=== PATIENT | male | born 1970 | race Caucasian/White ===

== ENCOUNTER 2017-03-11 23:28 | Inpatient (IN) | payer OTHER ==
[2017-03-11 23:29] VITALS: BMI 25.8
[2017-03-11 23:41] VITALS: RESP 20
--- NOTE | 2017-03-11 23:44 | C.PDOC ---
History Of Present Illness pt presents with some chest discomfort over the last week, as well as scrotal pain, worsening over the last few days. Noticed some foul odor and discharge in the genital. No f/c/n/v area Time Seen by Provider: 03/11/17 23:43 Chief Complaint (Nursing): Chest Pain History Per: Patient History/Exam Limitations: no limitations Onset/Duration Of Symptoms: Days (7) Current Symptoms Are (Timing): Still Present Context: Other Severity: Moderate Pain Scale Rating Of: 4 Quality: Dull, Aching Associated Symptoms: denies: Nausea Modifying Factors: None Exacerbating Factors: None Alleviating Factors: None Recent travel outside of the [place]: No Additional History Per: Patient Past Medical History Reviewed: Historical Data, Nursing Documentation, Vital Signs Vital Signs: Last Vital Signs Temp 98.3 F 03/11/17 23:37 Pulse 90 03/11/17 23:37 Resp 20 03/11/17 23:37 BP 125/71 03/11/17 23:37 Pulse Ox 100 03/11/17 23:55 - Medical History PMH: Anxiety, Asthma, CAD, COPD, Depression, HTN, Hypercholesterolemia Surgical History: Coronary Stent (X2), Endoscopy (IN [place]) - [facility] Procedures CORONAR ARTERIOGR-2 CATH (05/25/14) INSERTION OF ONE VASCULAR STENT (10/27/13) INSRT OF DRUG-ELUTING CORON ARTERY STENTS(S) (10/27/13) LEFT HEART CARDIAC CATH (05/25/14) LT HEART ANGIOCARDIOGRAM (05/25/14) MEASURE OF CARDIAC SAMPL & PRESSURE, L HEART, PERC APPROACH (07/18/15) PERCUTANEOUS TRANSLUMINAL CORONARY ANGIOPLASTY [PTCA] (10/27/13) PLAIN RADIOGRAPHY OF LEFT HEART USING OTHER CONTRAST (07/18/15) PROCEDURE ON SINGLE VESSEL (10/27/13) Family History: States: No Known Family Hx - Social History Hx Tobacco Use: Yes Hx Alcohol Use: No Hx Substance Use: No - Immunization History Hx Tetanus Toxoid Vaccination: No Hx Influenza Vaccination: No Hx Pneumococcal Vaccination: No Review Of Systems Constitutional: Negative for: Fever, Chills Eyes: Negative for: Redness ENT: Negative for: Throat Pain Cardiovascular: Positive for: Chest Pain. Negative for: Palpitations Respiratory: Negative for: Shortness of Breath Gastrointestinal: Negative for: Nausea, Vomiting, Abdominal Pain Genitourinary: Positive for: Scrotal Pain (large draining abscess right scrotal wall) Musculoskeletal: Negative for: Back Pain Skin: Negative for: Rash Neurological: Negative for: Weakness Psych: Negative for: Anxiety Physical Exam - Physical Exam Appears: Non-toxic Skin: Warm, Dry, Other (scrotal abscess) Head: Normacephalic Eye(s): bilateral: Normal Inspection Oral Mucosa: Moist Neck: Trachea Midline, Supple Chest: Symmetrical Cardiovascular: Rhythm Regular Respiratory: No Rales, No Rhonchi, No Wheezing Gastrointestinal/Abdominal: Soft, No Tenderness, No Distention Male Genital: No Testicular Tenderness, No Testicular Swelling, Scrotal Swelling (large draining abscess r lat aspect of scrotum) Extremity: No Tenderness Extremity: Bilateral: Atraumatic, Normal Color And Temperature Pulses: Left Dorsalis Pedis: Normal, Right Dorsalis Pedis: Normal Neurological/Psych: Oriented x3, Normal Speech, Normal Cognition Gait: Steady ED Course And Treatment - Laboratory Results Result Diagrams: 03/11/17 23:50 ECG: Interpreted By Me, Viewed By Me ECG Rhythm: Sinus Rhythm (79), Nonspecific Changes O2 Sat by Pulse Oximetry: 100 Pulse Ox Interpretation: Normal Disposition Discussed With Dr.: Sheryl Browne Comment: accepted the pt on her service and took over the care at 12:35 AM Doctor Will See Patient In The: Hospital Counseled Patient/Family Regarding: Studies Performed, Diagnosis - Disposition Disposition: HOSPITALIZED Disposition Time: 00:35 Condition: FAIR - POA Present On Arrival: Poor Glycemic Control - Clinical Impression Clinical Impression: Chest pain, Scrotal wall abscess, Cellulitis, scrotum Decision To Admit - Pt Status Changed To: Hospital Disposition Of: Inpatient - Admit Certification Admit to Inpatient:: After my assessment, the patient will require hospitalization for at least two midnights. This is because of the severity of symptoms shown, intensity of services needed, and/or the medical risk in this patient being treated as an outpatient. - InPatient: Physician Admission Certification: I certify that this patient requires 2 or more midnights of care for the following reason:: After my assessment, the patient will require hospitalization for at least two midnights. This is because of the severity of symptoms shown, intensity of services needed, and/or the medical risk in this patient being treated as an outpatient. - . Bed Request Type: Telemetry Admitting Physician: Sheryl Browne Patient Diagnosis: Chest pain, Scrotal wall abscess, Cellulitis, scrotum
[2017-03-11] MEDS ORDERED: Aspirin 325 mg EC Tablets PO STA (23:45)
[2017-03-11] MEDS ORDERED: Clindamycin 300 MG in Sodium Chloride 0.9% 50 ML IVPB STA (23:50)
[2017-03-11] MEDS ORDERED: Vancomycin 1 GM 1 GM/250 ML BAG IVPB STA (23:53)
[2017-03-11 23:54] LABS: BASO # 0.1 K/uL (0.0-0.2); BASO % 1.1 % (0.0-2.0); EOS # 0.1 K/uL (0.0-0.7); EOS % 1.4 % (0.0-4.0); HEMATOCRIT 35.6 % (35.0-51.0); LYMPH # 1.1 K/uL (1.0-4.3); LYMPH % 13.4 % (20.0-40.0); MEAN CELL VOLUME 88.5 fL (80.0-94.0); MEAN CORPUSCULAR HEMOGLOBIN 30.1 pg (27.0-31.0); MEAN PLATELET VOLUME 9.3 fL (7.2-11.7); MONO % 12.1 % (0.0-10.0); RED CELL DISTRIBUTION WIDTH 13.3 % (11.5-14.5); WHITE BLOOD COUNT 8.5 K/uL (4.8-10.8)
[2017-03-12] MEDS ORDERED: Vancomycin 1 GM 1 GM/250 ML BAG IVPB ONE (00:05)
[2017-03-12 00:06] LABS: VENOUS BLOOD GAS BASE EXCESS 1.3 mmol/L (0.0-2.0); VENOUS BLOOD GAS PCO2 40 mmHg (40-60); VENOUS BLOOD PH 7.42 (7.32-7.43)
[2017-03-12 00:07] LABS: INR 1.2
[2017-03-12 00:44] LABS: CHLORIDE 102 mmol/L (98-107)
[2017-03-12 00:45] LABS: POTASSIUM 3.9 mmol/L (3.6-5.2); SODIUM 141 mmol/L (132-148)
[2017-03-12 00:47] LABS: AST/SGOT 28 U/L (17-59); BILIRUBIN,TOTAL 0.7 mg/dL (0.2-1.3); CARBON DIOXIDE 25 mmol/L (22-30); GFR AFRICAN-AMERICAN > 60
[2017-03-12 00:48] LABS: ALB/GLOB RATIO 1.2 (1.0-2.1); ALKALINE PHOSPHATASE 33 U/L (38-126); ALT/SGPT 19 U/L (21-72); BLOOD UREA NITROGEN 14 mg/dL (9-20); CALCIUM 9.1 mg/dl (8.6-10.4); GLUCOSE,RANDOM 135 mg/dL (75-110); TOTAL PROTEIN 7.2 g/dL (6.3-8.3)
[2017-03-12] MEDS ORDERED: Morphine 4 MG/ML VIAL ONE (01:43)
[2017-03-12 05:47] LABS: INR 1.2
[2017-03-12] MEDS: Albuterol 0.042% Inhal Sol (1.25 mg/3 mL) UD IH SCH ×4 (07:22→19:51)
[2017-03-12 08:12] LABS: URINE COLOR YELLOW (YELLOW)
[2017-03-12 08:13] LABS: RBC URINE < 1 /hpf (0-3); URINE BILIRUBIN NEGATIVE (NEGATIVE); URINE BLOOD NEGATIVE (NEGATIVE); URINE GLUCOSE (UA) Normal (Normal); URINE KETONE NEGATIVE (NEGATIVE); URINE LEUKOCYTE ESTERASE NEGATIVE Leu/uL (Negative); URINE PROTEIN NEGATIVE (NEGATIVE); URINE UROBILINOGEN Normal mg/dL (0.2-1.0)
[2017-03-12 08:14] LABS: WBC URINE < 1 /hpf (0-5)
--- NOTE | 2017-03-12 09:09 | RAD ---
PROCEDURE: CHEST RADIOGRAPH, 1 VIEW HISTORY: Chest pain COMPARISON: 05/20/2016. FINDINGS: LUNGS: The lungs are well inflated and clear. PLEURA: No pneumothorax or pleural fluid seen. CARDIOVASCULAR: Normal. OSSEOUS STRUCTURES: No significant abnormalities. VISUALIZED UPPER ABDOMEN: Normal. OTHER FINDINGS: None. IMPRESSION: No active pulmonary disease.
[2017-03-12] MEDS: Pantoprazole 40 mg EC Tab PO SCH (09:43)
[2017-03-12] MEDS: Piperacillin/Tazobact 3.375 GM in Sodium Chloride 100 ML IVPB SCH ×2 (09:45→17:13)
[2017-03-12] MEDS: Bacitracin Ointment 30 GM TUBE TOP SCH ×2 (09:48→17:18)
[2017-03-12] MEDS ORDERED: FLUTICASONE PROPIONATE 0.22 MG IH SCH ×2 (10:00)
[2017-03-12] MEDS ORDERED: Ergocalciferol 50,000 Intl Units Cap PO SCH ×2 (10:00→18:00)
[2017-03-12] MEDS: Ranolazine 500 mg Extended Release Tablets PO SCH ×2 (11:29→17:11)
--- NOTE | 2017-03-12 17:33 | CP.PCM.CON ---
History of Present Illness - History of Present Illness History of Present Illness: I was asked to see patient by Dr. Browne. Patient is a 46 year old male with a history of HTN, CAD with previous stent placement hypercholesterolemia who presents with selling in his scrotum and abscess. The patient describes progressive discomfort and swelling. The patient developed subjective fever. He denies chest pain Review of Systems - Constitutional Constitutional: absent: As Per HPI, Anorexia, Chills, Daytime Sleepiness, Excessive Sweating, Fatigue, Fever, Frequent Falls, Headache, Increased Appetite , Lethargy, Malaise, Night Sweats, Snoring, Sleep Apnea, Weight Gain, Weight Loss, Weakness, Other - EENT Ears: absent: As Per HPI, Decreased Hearing, Ear Discharge, Ear Pain, Tinnitus, Abnormal Hearing, Disequilibrium, Dizziness, Other Nose/Mouth/Throat: absent: As Per HPI, Epistaxis, Nasal Congestion, Nasal Discharge, Nasal Obstruction, Nasal Trauma, Nose Pain, Post Nasal Drip, Sinus Pain, Sinus Pressure, Bleeding Gums, Change in Voice, Dental Pain, Dry Mouth, Dysphagia, Halitosis, Hoarsness, Lip Swelling, Mouth Lesions, Mouth Pain, Odynophagia, Sore Throat, Throat Swelling, Tongue Swelling, Facial Pain, Neck Pain, Neck Mass, Other - Cardiovascular Cardiovascular: absent: As Per HPI, Acrocyanosis, Chest Pain, Chest Pain at Rest , Chest Pain with Activity, Claudication, Diaphoresis, Dyspnea, Dyspnea on Exertion, Edema, Irregular Heart Rhythm, Pain Radiating to Arm/Neck/Jaw, Leg Edema, Leg Ulcers, Lightheadedness, Orthopnea, Palpitations, Paroxysmal Nocturnal Dyspnea, Pedal Edema, Radiating Pain, Rapid Heart Rate, Slow Heart Rate, Syncope, Other - Respiratory Respiratory: absent: As Per HPI, Cough, Dyspnea, Hemoptysis, Dyspnea on Exertion , Wheezing, Snoring, Stridor, Pain on Inspiration, Chest Congestion, Excessive Mucous Production, Change in Mucous Color, Pain with Coughing, Other - Gastrointestinal Gastrointestinal: absent: As Per HPI, Abdominal Pain, Belching, Bloating, Change in Bowel Habits, Change in Stool Character, Coffee Ground Emesis, Constipation, Cramping, Diarrhea, Dyspepsia, Dysphagia, Early Satiety, Excessive Flatus, Fecal Incontinence, Heartburn, Hematemesis, Hematochezia, Loose Stools, Melena, Nausea, Odynophagia, Temesmus, Vomiting, Other - Genitourinary Genitourinary: absent: As Per HPI, Change in Urinary Stream, Difficulty Urinating, Dysuria, Flank Pain, Hematuria, Pyuria, Nocturia, Urinary Incontinence, Urinary Frequency, Urinary Hesitance, Urinary Urgency, Voiding Freq/Small Amts, Freq UTI, Hx Renal/Bladder Calculi, Hx /Renal Surgery, Bladder Distension, Other - Musculoskeletal Musculoskeletal: absent: As Per HPI, Abnormal Gait, Arthralgias, Atrophy, Back Pain, Deformity, Joint Swelling, Limited Range of Motion, Loss of Height, Muscle Cramps, Muscle Weakness, Myalgias, Neck Pain, Numbness, Radiating Pain into Limb, Stiffness, Tingling, Other - Integumentary Integumentary: absent: As Per HPI, Acne, Alopecia, Bleeding Lesions, Change in Hair, Change in Nails, Change in Pigmentation, Changing Lesions, Dry Skin, Erythema, Furuncle, Hirsutism, Lesions, New Lesions, Non-Healing Lesions, Photosensitivity, Pruritus, Rash, Skin Pain, Skin Ulcer, Sores, Striae, Swelling , Unusual Bruising, Wounds, Jaundice, Other - Neurological Neurological: absent: As Per HPI, Abnormal Gait, Abnormal Hearing, Abnormal Movements, Abnormal Speech, Behavioral Changes, Burning Sensations, Confusion, Convulsions, Disequilibrium, Dizziness, Numbness, Focal Weakness, Frequent Falls , Headaches, Lack of Coordination, Loss of Vision, Memory Loss, Paresthesias, Radicular Pain, Restless Legs, Sensory Deficit, Syncope, Tingling, Tremor, Vertigo, Weakness, Other Visual Disturbances, Other - Psychiatric Psychiatric: absent: As Per HPI, Abnormal Sleep Pattern, Anhedonia, Anxiety, Auditory Hallucinations, Behavioral Changes, Change in Appetite, Change in Libido, Confusion, Depression, Difficulty Concentrating, Hallucinations, Homicidal Ideation, Hopelessness, Irritability, Memory Loss, Mood Swings, Panic Attacks, Paranoia, Suicidal Ideation, Visual Hallucinations, Tactile Hallucinations, Other - Endocrine Endocrine: absent: As Per HPI, Change in Body Appearance, Change in Libido, Cold Intolorance, Deepening of Voice, Excessive Sweating, Fatigue, Flushing, Heat Intolorance, Increase in Ring/Shoe/Hat Size, Palpitations, Polydipsia, Polyphagia, Polyuria, Other - Hematologic/Lymphatic Hematologic: absent: As Per HPI, Easy Bleeding, Easy Bruising, Lymphadenopathy, Other Past Patient History - Past Medical History & Family History Past Medical History?: Yes - Past Social History Smoking Status: Light Smoker < 10 Cigarettes Daily - CARDIAC Hx Congestive Heart Failure: Yes Hx Heart Attack: Yes Hx Hypercholesterolemia: Yes Hx Hypertension: Yes Other/Comment: patient has two stents - PULMONARY Hx Asthma: Yes Hx Chronic Obstructive Pulmonary Disease (COPD): Yes Other/Comment: uses oxygen 2-3 liters - NEUROLOGICAL Hx Neurological Disorder: No - HEENT Hx HEENT Problems: Yes Other/Comment: wears glasses - RENAL Hx Chronic Kidney Disease: No - ENDOCRINE/METABOLIC Hx Endocrine Disorders: No - HEMATOLOGICAL/ONCOLOGICAL Hx Blood Disorders: No - INTEGUMENTARY Hx Dermatological Problems: Yes Other/Comment: scrotal abscesss - MUSCULOSKELETAL/RHEUMATOLOGICAL Hx Falls: No Other/Comment: left leg weakness - GASTROINTESTINAL Hx Gastrointestinal Disorders: Yes Hx Gastroesophageal Reflux: Yes - GENITOURINARY/GYNECOLOGICAL Hx Genitourinary Disorders: No - PSYCHIATRIC Hx Psychophysiologic Disorder: No Hx Substance Use: No - SURGICAL HISTORY Hx Coronary Stent: Yes (X2) - ANESTHESIA Hx Anesthesia: Yes Hx Anesthesia Reactions: No Hx Malignant Hyperthermia: No Meds Home Medications: Home Medication List Medication Instructions Recorded Confirmed Type Amoxicillin/Clavulanate [Augmentin 1 tab PO BID #14 tab 03/13/17 Rx 875 MG-125 MG] Allergies/Adverse Reactions: Allergies Allergy/AdvReac Type Severity Reaction Status Date / Time No Known Allergies Allergy Verified 09/23/16 09:56 - Medications Medications: Current Medications Albuterol Sulfate (Albuterol 0.042% Inhal Neisha (1.25mg/3ml) Ud) 1.25 mg IH RQID [facility] Last Admin: 03/12/17 13:34 Dose: 1.25 mg Bacitracin (Bacitracin) 0 gm TOP BID [facility] Last Admin: 03/12/17 17:18 Dose: 1 gm Ergocalciferol (Drisdol 50,000 Intl Units Cap) 1 cap PO QWK@1800 [facility] Last Admin: 03/12/17 17:13 Dose: 1 cap Fenofibrate (Tricor) 145 mg PO HS [facility] Gabapentin (Neurontin) 600 mg PO HS [facility] Heparin Sodium (Porcine) (Heparin) 5,000 units SC Q12 [facility] Last Admin: 03/12/17 09:46 Dose: 5,000 units Piperacillin Sod/Tazobactam (Sod 3.375 gm/ Sodium Chloride) 100 mls @ 200 mls/ hr IVPB Q8H [facility] Last Admin: 03/12/17 17:13 Dose: 200 mls/hr Isosorbide Mononitrate (Imdur) 30 mg PO DAILY [facility] Last Admin: 03/12/17 09:44 Dose: 30 mg Metoprolol Tartrate (Lopressor) 25 mg PO BID [facility] Last Admin: 03/12/17 17:16 Dose: Not Given Montelukast Sodium (Singulair) 10 mg PO [facility] Nicotine (Nicoderm Cq) 1 patch TD DAILY [facility] Last Admin: 03/12/17 16:50 Dose: 1 patch Pantoprazole Sodium (Protonix Ec Tab) 40 mg PO DAILY [facility] Last Admin: 03/12/17 09:43 Dose: 40 mg Ranolazine (Ranexa) 1,000 mg PO BID [facility] Last Admin: 03/12/17 17:11 Dose: 1,000 mg Rosuvastatin Calcium (Crestor) 5 mg PO [facility] Fluticasone/Salmeterol (Advair Diskus 500/50) 1 puff INH RQ12 [facility] Physical Exam - Constitutional Appears: Non-toxic - Head Exam Head Exam: NORMAL INSPECTION - Eye Exam Eye Exam: Normal appearance - ENT Exam ENT Exam: Mucous Membranes Moist - Neck Exam Neck exam: Positive for: Full Rom - Respiratory Exam Respiratory Exam: NORMAL BREATHING PATTERN - Cardiovascular Exam Cardiovascular Exam: REGULAR RHYTHM - GI/Abdominal Exam GI & Abdominal Exam: Normal Bowel Sounds - Rectal Exam Rectal Exam: Deferred - Exam Exam: Scrotal Swelling, Testicular Tenderness - Extremities Exam Extremities exam: Positive for: normal inspection - Back Exam Back exam: NORMAL INSPECTION - Neurological Exam Neurological exam: Alert, Oriented x3 - Psychiatric Exam Psychiatric exam: Normal Affect - Skin Skin Exam: Normal Color Results - Vital Signs Recent Vital Signs: Last Vital Signs Temp 98.0 F 03/12/17 15:00 Pulse 68 03/12/17 15:00 Resp 20 03/12/17 15:00 BP 102/64 03/12/17 17:16 Pulse Ox 97 03/12/17 15:00 - Labs Result Diagrams: 03/11/17 23:50 03/11/17 23:50 Labs: Laboratory Results - last 24 hr 03/12/17 03/12/17 05:16 05:16 PT 14.0 H INR 1.2 APTT 31 Total Creatine Kinase 73 CK-MB (Mass) < 0.22 Troponin I, Quant < 0.0120 NT-Pro-B Natriuret Pep 128 - EKG Data EKG Interpreted by: Myself EKG shows normal: Sinus rhythm Assessment & Plan (1) CAD (coronary artery disease) Assessment and Plan: no current angina. continue current medications. Status: Acute (2) Scrotal wall abscess Assessment and Plan: continue antibiotic therapy Status: Acute (3) HTN (hypertension) Assessment and Plan: blood pressure is controlled Status: Acute (4) Hypercholesteremia Assessment and Plan: statin therapy Status: Acute
--- NOTE | 2017-03-12 18:21 | CP.PCM.HP ---
History of Present Illness - History of Present Illness History of Present Illness: pt admited for chest pain ocasiolay and abcess scrotal painful Present on Admission - Present on Admission Any Indicators Present on Admission: No Review of Systems - Review of Systems Systems not reviewed;Unavailable: Acuity of Condition - Constitutional Constitutional: Fatigue, Headache - EENT Eyes: As Per HPI Ears: As Per HPI Nose/Mouth/Throat: As Per HPI - Cardiovascular Cardiovascular: Chest Pain - Respiratory Respiratory: Dyspnea on Exertion - Gastrointestinal Gastrointestinal: As Per HPI - Genitourinary Genitourinary: As Per HPI - Reproductive: Male Reproductive:Male: As Per HPI - Musculoskeletal Musculoskeletal: Myalgias, Radiating Pain into Limb - Integumentary Integumentary: As Per HPI - Psychiatric Psychiatric: As Per HPI - Endocrine Endocrine: As Per HPI - Hematologic/Lymphatic Hematologic: As Per HPI Past Patient History - Past Medical History & Family History Past Medical History?: Yes - Past Social History Smoking Status: Light Smoker < 10 Cigarettes Daily - CARDIAC Hx Congestive Heart Failure: Yes Hx Heart Attack: Yes Hx Hypercholesterolemia: Yes Hx Hypertension: Yes Other/Comment: patient has two stents - PULMONARY Hx Asthma: Yes Hx Chronic Obstructive Pulmonary Disease (COPD): Yes Other/Comment: uses oxygen 2-3 liters - NEUROLOGICAL Hx Neurological Disorder: No - HEENT Hx HEENT Problems: Yes Other/Comment: wears glasses - RENAL Hx Chronic Kidney Disease: No - ENDOCRINE/METABOLIC Hx Endocrine Disorders: No - HEMATOLOGICAL/ONCOLOGICAL Hx Blood Disorders: No - INTEGUMENTARY Hx Dermatological Problems: Yes Other/Comment: scrotal abscesss - MUSCULOSKELETAL/RHEUMATOLOGICAL Hx Falls: No Other/Comment: left leg weakness - GASTROINTESTINAL Hx Gastrointestinal Disorders: Yes Hx Gastroesophageal Reflux: Yes - GENITOURINARY/GYNECOLOGICAL Hx Genitourinary Disorders: No - PSYCHIATRIC Hx Psychophysiologic Disorder: No Hx Substance Use: No - SURGICAL HISTORY Hx Coronary Stent: Yes (X2) - ANESTHESIA Hx Anesthesia: Yes Hx Anesthesia Reactions: No Hx Malignant Hyperthermia: No Meds Allergies/Adverse Reactions: Allergies Allergy/AdvReac Type Severity Reaction Status Date / Time No Known Allergies Allergy Verified 09/23/16 09:56 Physical Exam - Constitutional Appears: Non-toxic - Head Exam Head Exam: NORMAL INSPECTION - Eye Exam Eye Exam: Normal appearance Pupil Exam: NORMAL ACCOMODATION - ENT Exam ENT Exam: Mucous Membranes Moist - Neck Exam Neck exam: Positive for: Full Rom - Respiratory Exam Respiratory Exam: Clear to Auscultation Bilateral - Cardiovascular Exam Cardiovascular Exam: REGULAR RHYTHM - GI/Abdominal Exam GI & Abdominal Exam: Normal Bowel Sounds - Rectal Exam Rectal Exam: NORMAL INSPECTION - Exam Exam: Scrotal Swelling - Extremities Exam Additional comments: pvd Results - Vital Signs Recent Vital Signs: Last Vital Signs Temp 98.0 F 03/12/17 15:00 Pulse 68 03/12/17 15:00 Resp 20 03/12/17 15:00 BP 102/64 03/12/17 17:16 Pulse Ox 97 03/12/17 15:00 - Labs Result Diagrams: 03/11/17 23:50 03/11/17 23:50 Labs: Laboratory Results - last 24 hr 03/12/17 03/12/17 05:16 05:16 PT 14.0 H INR 1.2 APTT 31 Total Creatine Kinase 73 CK-MB (Mass) < 0.22 Troponin I, Quant < 0.0120 NT-Pro-B Natriuret Pep 128 Assessment & Plan - Assessment and Plan (Free Text) Assessment: ashd cad ac abcess croal wall opened drained today by itself Plan: cont iv antibiotics and moniering ht dec metaprolol - Date & Time Date: 03/12/17 Time: 18:25
[2017-03-12] MEDS: Fluticasone-Salmeterol 500-50mcg Diskus INH SCH (19:51)
[2017-03-12] MEDS ORDERED: FENOFIBRATE PO SCH (22:00)
[2017-03-13] MEDS: Piperacillin/Tazobact 3.375 GM in Sodium Chloride 100 ML IVPB SCH ×3 (00:22→16:19)
[2017-03-13] MEDS: Albuterol 0.042% Inhal Sol (1.25 mg/3 mL) UD IH SCH ×4 (07:23→19:49)
[2017-03-13] MEDS: Pantoprazole 40 mg EC Tab PO SCH (09:51)
[2017-03-13] MEDS: Bacitracin Ointment 30 GM TUBE TOP SCH ×2 (09:52→17:44)
[2017-03-13] MEDS: Ranolazine 500 mg Extended Release Tablets PO SCH ×2 (09:58→17:44)
[2017-03-13] MEDS: Fluticasone-Salmeterol 500-50mcg Diskus INH SCH ×2 (10:08→19:48)
[2017-03-13] MEDS ORDERED: Aluminum Hydroxide/Magnesium Hydroxide Susp (30 mL) PO ONE (16:00)
--- NOTE | 2017-03-13 16:30 | CP.PCM.PN ---
Subjective - Date & Time of Evaluation Date of Evaluation: 03/06/17 Time of Evaluation: 16:27 - Subjective Subjective: pt scrotum still swalllen hard and painfull Objective - Vital Signs/Intake and Output Vital Signs (last 24 hours): Temp Pulse Resp BP Pulse Ox 97.4 F L 71 20 111/67 97 03/13/17 15:00 03/13/17 15:00 03/13/17 15:00 03/13/17 15:00 03/13/17 15:00 Intake and Output: 03/13/17 03/13/17 06:59 18:59 Intake Total 740 520 Balance 740 520 - Medications Medications: Current Medications Albuterol Sulfate (Albuterol 0.042% Inhal Neisha (1.25mg/3ml) Ud) 1.25 mg IH RQID [facility] Last Admin: 03/13/17 10:59 Dose: 1.25 mg Bacitracin (Bacitracin) 0 gm TOP BID [facility] Last Admin: 03/13/17 09:52 Dose: 1 gm Ergocalciferol (Drisdol 50,000 Intl Units Cap) 1 cap PO QWK@1800 [facility] Last Admin: 03/12/17 17:13 Dose: 1 cap Fenofibrate (Tricor) 145 mg PO HS [facility] Last Admin: 03/12/17 21:44 Dose: 145 mg Gabapentin (Neurontin) 600 mg PO HS [facility] Last Admin: 03/12/17 21:42 Dose: 600 mg Heparin Sodium (Porcine) (Heparin) 5,000 units SC Q12 [facility] Last Admin: 03/13/17 09:50 Dose: 5,000 units Piperacillin Sod/Tazobactam (Sod 3.375 gm/ Sodium Chloride) 100 mls @ 200 mls/ hr IVPB Q8H [facility] Last Admin: 03/13/17 16:19 Dose: 200 mls/hr Isosorbide Mononitrate (Imdur) 30 mg PO HS [facility] Metoprolol Tartrate (Lopressor) 25 mg PO BID [facility] Last Admin: 03/13/17 09:53 Dose: Not Given Montelukast Sodium (Singulair) 10 mg PO HS [facility] Last Admin: 03/12/17 21:42 Dose: 10 mg Nicotine (Nicoderm Cq) 1 patch TD DAILY [facility] Last Admin: 03/13/17 11:08 Dose: 1 patch Pantoprazole Sodium (Protonix Ec Tab) 40 mg PO DAILY [facility] Last Admin: 03/13/17 09:51 Dose: 40 mg Ranolazine (Ranexa) 1,000 mg PO BID [facility] Last Admin: 03/13/17 09:58 Dose: 1,000 mg Rosuvastatin Calcium (Crestor) 5 mg PO HS [facility] Last Admin: 03/12/17 21:42 Dose: 5 mg Fluticasone/Salmeterol (Advair Diskus 500/50) 1 puff INH RQ12 [facility] Last Admin: 03/13/17 10:08 Dose: 1 puff - Labs Labs: PT 14.0 SECONDS (9.7-12.2) H 03/12/17 05:16 INR 1.2 03/12/17 05:16 APTT 31 SECONDS (21-34) 03/12/17 05:16 - Constitutional Appears: Non-toxic - Head Exam Head Exam: NORMAL INSPECTION - Eye Exam Eye Exam: Normal appearance Pupil Exam: NORMAL ACCOMODATION - ENT Exam ENT Exam: Mucous Membranes Moist - Neck Exam Neck Exam: Full ROM - Respiratory Exam Respiratory Exam: Clear to Ausculation Bilateral - Cardiovascular Exam Cardiovascular Exam: REGULAR RHYTHM - GI/Abdominal Exam GI & Abdominal Exam: Normal Bowel Sounds - Rectal Exam Rectal Exam: NORMAL INSPECTION - Exam Exam: Scrotal Swelling, Testicular Tenderness External exam: NORMAL EXTERNAL EXAM - Extremities Exam Extremities Exam: Full ROM - Back Exam Back Exam: Full ROM - Psychiatric Exam Psychiatric exam: Normal Affect - Skin Skin Exam: Dry Assessment and Plan - Assessment and Plan (Free Text) Assessment: ac infection scrotum r/o abcess cont antibiotics and ultrasound scrotum
--- NOTE | 2017-03-13 17:50 | CP.PCM.PN ---
Subjective - Date & Time of Evaluation Date of Evaluation: 03/13/17 Time of Evaluation: 17:30 - Subjective Subjective: patient has no current chest pain or dyspnea. Objective - Vital Signs/Intake and Output Vital Signs (last 24 hours): Temp Pulse Resp BP Pulse Ox 97.4 F L 71 20 114/74 97 03/13/17 15:00 03/13/17 15:00 03/13/17 15:00 03/13/17 17:46 03/13/17 15:00 Intake and Output: 03/13/17 03/13/17 06:59 18:59 Intake Total 740 520 Balance 740 520 - Medications Medications: Current Medications Albuterol Sulfate (Albuterol 0.042% Inhal Neisha (1.25mg/3ml) Ud) 1.25 mg IH RQID [facility] Last Admin: 03/13/17 10:59 Dose: 1.25 mg Bacitracin (Bacitracin) 0 gm TOP BID [facility] Last Admin: 03/13/17 17:44 Dose: 1 gm Ergocalciferol (Drisdol 50,000 Intl Units Cap) 1 cap PO QWK@1800 [facility] Last Admin: 03/12/17 17:13 Dose: 1 cap Fenofibrate (Tricor) 145 mg PO [facility] Last Admin: 03/12/17 21:44 Dose: 145 mg Gabapentin (Neurontin) 600 mg PO HS [facility] Last Admin: 03/12/17 21:42 Dose: 600 mg Heparin Sodium (Porcine) (Heparin) 5,000 units SC Q12 [facility] Last Admin: 03/13/17 09:50 Dose: 5,000 units Piperacillin Sod/Tazobactam (Sod 3.375 gm/ Sodium Chloride) 100 mls @ 200 mls/ hr IVPB Q8H [facility] Last Admin: 03/13/17 16:19 Dose: 200 mls/hr Isosorbide Mononitrate (Imdur) 30 mg PO [facility] Metoprolol Tartrate (Lopressor) 25 mg PO BID [facility] Last Admin: 03/13/17 17:46 Dose: Not Given Montelukast Sodium (Singulair) 10 mg PO HS [facility] Last Admin: 03/12/17 21:42 Dose: 10 mg Nicotine (Nicoderm Cq) 1 patch TD DAILY [facility] Last Admin: 03/13/17 11:08 Dose: 1 patch Pantoprazole Sodium (Protonix Ec Tab) 40 mg PO DAILY [facility] Last Admin: 03/13/17 09:51 Dose: 40 mg Ranolazine (Ranexa) 1,000 mg PO BID [facility] Last Admin: 03/13/17 17:44 Dose: 1,000 mg Rosuvastatin Calcium (Crestor) 5 mg PO HS [facility] Last Admin: 03/12/17 21:42 Dose: 5 mg Fluticasone/Salmeterol (Advair Diskus 500/50) 1 puff INH RQ12 [facility] Last Admin: 03/13/17 10:08 Dose: 1 puff - Labs Labs: PT 14.0 SECONDS (9.7-12.2) H 03/12/17 05:16 INR 1.2 03/12/17 05:16 APTT 31 SECONDS (21-34) 03/12/17 05:16 - Constitutional Appears: Non-toxic - Head Exam Head Exam: NORMAL INSPECTION - Eye Exam Eye Exam: Normal appearance - ENT Exam ENT Exam: Mucous Membranes Moist - Neck Exam Neck Exam: Full ROM - Respiratory Exam Respiratory Exam: NORMAL BREATHING PATTERN - Cardiovascular Exam Cardiovascular Exam: REGULAR RHYTHM - GI/Abdominal Exam GI & Abdominal Exam: Normal Bowel Sounds - Rectal Exam Rectal Exam: Deferred - Extremities Exam Extremities Exam: absent: Pedal Edema - Back Exam Back Exam: NORMAL INSPECTION - Neurological Exam Neurological Exam: Alert - Psychiatric Exam Psychiatric exam: Normal Affect - Skin Skin Exam: Normal Color Assessment and Plan (1) CAD (coronary artery disease) Assessment & Plan: conitnue antiplatelet therapy Status: Acute (2) Scrotal wall abscess Assessment & Plan: contine antibiotics Status: Acute (3) HTN (hypertension) Assessment & Plan: blood pressure control Status: Acute (4) Hypercholesteremia Assessment & Plan: statin therapy Status: Acute
[2017-03-14] MEDS: Piperacillin/Tazobact 3.375 GM in Sodium Chloride 100 ML IVPB SCH ×2 (01:13→08:04)
[2017-03-14] MEDS: Albuterol 0.042% Inhal Sol (1.25 mg/3 mL) UD IH SCH ×2 (07:55→13:20)
[2017-03-14] MEDS: Fluticasone-Salmeterol 500-50mcg Diskus INH SCH (07:55)
[2017-03-14] MEDS ORDERED: Aluminum Hydroxide/Magnesium Hydroxide Susp (30 mL) PO ONE (10:19)
[2017-03-14] MEDS: Pantoprazole 40 mg EC Tab PO SCH (10:44)
[2017-03-14] MEDS: Ranolazine 500 mg Extended Release Tablets PO SCH (10:45)
[2017-03-14] MEDS: Bacitracin Ointment 30 GM TUBE TOP SCH (10:50)
--- NOTE | 2017-03-14 11:42 | US ---
HISTORY: swollen scrotum TECHNIQUE: Realtime sonography through the scrotum with color and doppler flow. COMPARISON: None Available. FINDINGS: RIGHT TESTICLE: Measures 5.3 x 2.7 x 3.6 cm. Normal echotexture and flow. RIGHT EPIDIDYMIS: Epididymal head measures 1.0 x 1.7 x 1.4 cm. Grossly unremarkable appearance with normal flow. LEFT TESTICLE: Measures 5.1 x 2.4 x 3.9 cm. Normal echotexture and flow. LEFT EPIDIDYMIS: Epididymal head measures 0.7 x 1.3 x 1.4 cm. There is a 8 x 5 x 7 mm cyst in the head of the epididymis. Normal flow. HYDROCELE: There is a moderate right complicated hydrocele. VARICOCELE: There are bilateral varicoceles. OTHER FINDINGS: There is subcutaneous edema in the scrotum. On the right side, in the superior lateral subcutaneous tissues there is an apparent 3.1 x 1.5 x 3.8 cm heterogeneous area with central anechoic components and mild increased vascularity. On the left side, in the superior lateral subcutaneous tissues there is an apparent 1.4 x 0.7 x 1.1 cm heterogeneous area with central hypoechoic components. IMPRESSION: 1. No evidence of testicular mass or torsion. 2. Diffuse subcutaneous edema in the scrotum may represent cellulitis in the appropriate clinical setting. On the right side focal abnormality measuring about 3.1 x 1.5 x 3.8 cm may represent phlegmon or developing fluid collection. On the left side an apparent 1.4 x 0.7 x 1.1 cm abnormality may represent phlegmonous changes. Clinical correlation and follow-up is advised. 3. Moderate complicated right hydrocele. 4. Bilateral varicoceles.
--- NOTE | 2017-03-14 12:43 | CARD ---
APPROVED REPORT EKG Measurement Heart [id number] <Conclusion> Normal sinus rhythm Left axis deviation Low voltage QRS Abnormal ECG
--- NOTE | 2017-03-14 15:35 | CP.PCM.PN ---
Subjective - Date & Time of Evaluation Date of Evaluation: 03/14/17 Time of Evaluation: 11:00 - Subjective Subjective: Awake, alert, NAD. Objective - Vital Signs/Intake and Output Vital Signs (last 24 hours): Temp Pulse Resp BP Pulse Ox 98.3 F 75 20 101/63 95 03/14/17 08:00 03/14/17 08:00 03/14/17 08:00 03/14/17 08:00 03/14/17 08:00 Intake and Output: 03/14/17 03/14/17 06:59 18:59 Intake Total 860 Balance 860 - Medications Medications: Current Medications Albuterol Sulfate (Albuterol 0.042% Inhal Neisha (1.25mg/3ml) Ud) 1.25 mg IH RQID [facility] Last Admin: 03/14/17 13:20 Dose: 1.25 mg Bacitracin (Bacitracin) 0 gm TOP BID [facility] Last Admin: 03/14/17 10:50 Dose: 1 gm Ergocalciferol (Drisdol 50,000 Intl Units Cap) 1 cap PO QWK@1800 [facility] Last Admin: 03/12/17 17:13 Dose: 1 cap Fenofibrate (Tricor) 145 mg PO HS [facility] Last Admin: 03/13/17 21:06 Dose: 145 mg Gabapentin (Neurontin) 600 mg PO HS [facility] Last Admin: 03/13/17 21:06 Dose: 600 mg Heparin Sodium (Porcine) (Heparin) 5,000 units SC Q12 [facility] Last Admin: 03/14/17 10:44 Dose: 5,000 units Piperacillin Sod/Tazobactam (Sod 3.375 gm/ Sodium Chloride) 100 mls @ 200 mls/ hr IVPB Q8H [facility] Last Admin: 03/14/17 08:04 Dose: 200 mls/hr Isosorbide Mononitrate (Imdur) 30 mg PO HS [facility] Last Admin: 03/13/17 21:05 Dose: 30 mg Metoprolol Tartrate (Lopressor) 25 mg PO BID [facility] Last Admin: 03/14/17 10:45 Dose: Not Given Montelukast Sodium (Singulair) 10 mg PO HS [facility] Last Admin: 03/13/17 21:05 Dose: 10 mg Nicotine (Nicoderm Cq) 1 patch TD DAILY [facility] Last Admin: 03/14/17 10:45 Dose: 1 patch Pantoprazole Sodium (Protonix Ec Tab) 40 mg PO DAILY [facility] Last Admin: 03/14/17 10:44 Dose: 40 mg Ranolazine (Ranexa) 1,000 mg PO BID [facility] Last Admin: 03/14/17 10:45 Dose: 1,000 mg Rosuvastatin Calcium (Crestor) 5 mg PO HS [facility] Last Admin: 03/13/17 21:06 Dose: 5 mg Fluticasone/Salmeterol (Advair Diskus 500/50) 1 puff INH RQ12 [facility] Last Admin: 03/14/17 07:55 Dose: 1 puff - Labs Labs: PT 14.0 SECONDS (9.7-12.2) H 03/12/17 05:16 INR 1.2 03/12/17 05:16 APTT 31 SECONDS (21-34) 03/12/17 05:16 Assessment and Plan - Assessment and Plan (Free Text) Assessment: Patient is seen and examined. Alert, ambulatory, says the scrotum fells better, no acute pain. D/W DR Dela Cruz, and DR Smith regarding the cellulitis, was advised to continue with po antibiotic and warm compresses. D/W DR Browne and discharge plan is made for today.Advised to follow up with office and in 1 week.
[2017-03-14 17:12] VITALS: BP 115/75; PULSE 81; TEMP 98.4; O2SAT 98
--- NOTE | 2017-03-15 07:14 | CARD ---
APPROVED REPORT EKG Measurement Heart [id number] <Conclusion> Normal sinus rhythm Possible Left atrial enlargement Borderline ECG
== END 2017-03-14 17:45 | disposition home or self-care (01) | DRG 350 ==
LOC: C.ER 23:28 → C.9E 03-12 00:37 → C.3T 03-12 06:36
PROVIDERS: ADMIT Internal Medicine; ATTEND Internal Medicine
DX: N49.2 Inflammatory disorders of scrotum (principal); I11.0 Hypertensive heart disease with heart failure; I50.9 Heart failure, unspecified; J44.9 Chronic obstructive pulmonary disease, unspecified; I25.2 Old myocardial infarction; I25.10 Atherosclerotic heart disease of native coronary artery without angina pectoris; E78.00 Pure hypercholesterolemia, unspecified; F17.210 Nicotine dependence, cigarettes, uncomplicated; Z95.5 Presence of coronary angioplasty implant and graft

== ENCOUNTER 2017-08-27 23:04 | Inpatient (IN) | payer OTHER ==
[2017-08-27 23:04] VITALS: BMI 25.8
[2017-08-27] MEDS ORDERED: Aspirin 325 mg EC Tablets PO STA (23:33)
--- NOTE | 2017-08-27 23:33 | C.PDOC ---
History Of Present Illness Pt presents with chest pain worsening over the last 2-3 days. No f/c/n/v. Dull , aching pain.,Also complaining of right neck pain. Worse with movement Time Seen by Provider: 08/27/17 23:32 Chief Complaint (Nursing): Chest Pain History Per: Patient History/Exam Limitations: no limitations Onset/Duration Of Symptoms: Days Current Symptoms Are (Timing): Still Present Context: Other Severity: Moderate Pain Scale Rating Of: 4 Quality: Dull Associated Symptoms: denies: Nausea, Dyspnea Exacerbating Factors: None Alleviating Factors: None Recent travel outside of the [place]: No Additional History Per: Patient Past Medical History Reviewed: Historical Data, Nursing Documentation, Vital Signs Vital Signs: Last Vital Signs Temp 98.6 F 08/27/17 23:09 Pulse 68 08/28/17 00:47 Resp 22 08/28/17 00:47 BP 101/60 08/28/17 00:47 Pulse Ox 99 08/28/17 00:47 - Medical History PMH: Anxiety, Asthma, CAD, CHF, COPD, Depression, HTN, Hypercholesterolemia Denies: Chronic Kidney Disease Surgical History: Coronary Stent (X2), Endoscopy (IN [place]) - [employer] Procedures CORONAR ARTERIOGR-2 CATH (05/25/14) INSERTION OF ONE VASCULAR STENT (10/27/13) INSRT OF DRUG-ELUTING CORON ARTERY STENTS(S) (10/27/13) LEFT HEART CARDIAC CATH (05/25/14) LT HEART ANGIOCARDIOGRAM (05/25/14) MEASURE OF CARDIAC SAMPL & PRESSURE, L HEART, PERC APPROACH (07/18/15) PERCUTANEOUS TRANSLUMINAL CORONARY ANGIOPLASTY [PTCA] (10/27/13) PLAIN RADIOGRAPHY OF LEFT HEART USING OTHER CONTRAST (07/18/15) PROCEDURE ON SINGLE VESSEL (10/27/13) Family History: States: No Known Family Hx - Social History Hx Tobacco Use: Yes Hx Alcohol Use: No Hx Substance Use: No - Immunization History Hx Tetanus Toxoid Vaccination: No Hx Influenza Vaccination: No Hx Pneumococcal Vaccination: Yes Review Of Systems Constitutional: Negative for: Fever, Chills Eyes: Negative for: Redness ENT: Negative for: Throat Pain Cardiovascular: Positive for: Chest Pain Respiratory: Negative for: Shortness of Breath Gastrointestinal: Negative for: Nausea, Vomiting Genitourinary: Negative for: Dysuria Musculoskeletal: Positive for: Neck Pain Skin: Negative for: Rash Neurological: Negative for: Weakness Psych: Negative for: Anxiety Physical Exam - Physical Exam Appears: Non-toxic Skin: Warm, Dry Head: Normacephalic Eye(s): bilateral: Normal Inspection Nose: Normal Oral Mucosa: Moist Neck: Trachea Midline, Supple Chest: Symmetrical Cardiovascular: Rhythm Regular Respiratory: No Rales, No Rhonchi, No Wheezing Gastrointestinal/Abdominal: Soft, No Tenderness, No Distention Back: No CVA Tenderness Extremity: Normal ROM Extremity: Bilateral: Atraumatic Pulses: Left Dorsalis Pedis: Normal, Right Dorsalis Pedis: Normal Neurological/Psych: Oriented x3, Normal Speech, Normal Cognition Gait: Steady ED Course And Treatment - Laboratory Results Result Diagrams: 08/27/17 23:43 08/27/17 23:43 ECG: Interpreted By Me, Viewed By Me ECG Rhythm: Sinus Rhythm (68), Nonspecific Changes O2 Sat by Pulse Oximetry: 99 Pulse Ox Interpretation: Normal - Radiology CXR: Interpreted by Me, Viewed By Me Disposition Discussed With Dr.: Sheryl Browne Comment: accepted the pt on her service and took over the care at 1:27AM Doctor Will See Patient In The: Hospital Counseled Patient/Family Regarding: Studies Performed, Diagnosis - Disposition Disposition: HOSPITALIZED Disposition Time: 23:33 Condition: FAIR Forms: [facility] (Kinyarwanda) - POA Present On Arrival: None - Clinical Impression Clinical Impression: Chest pain Decision To Admit - Pt Status Changed To: Hospital Disposition Of: Inpatient - Admit Certification Admit to Inpatient:: After my assessment, the patient will require hospitalization for at least two midnights. This is because of the severity of symptoms shown, intensity of services needed, and/or the medical risk in this patient being treated as an outpatient. - InPatient: Physician Admission Certification: I certify that this patient requires 2 or more midnights of care for the following reason:: After my assessment, the patient will require hospitalization for at least two midnights. This is because of the severity of symptoms shown, intensity of services needed, and/or the medical risk in this patient being treated as an outpatient. - . Bed Request Type: Telemetry Admitting Physician: Sheryl Browne Patient Diagnosis: Chest pain
[2017-08-27 23:47] LABS: BASO # 0.1 K/uL (0.0-0.2); BASO % 0.7 % (0.0-2.0); EOS # 0.1 K/uL (0.0-0.7); EOS % 1.3 % (0.0-4.0); HEMOGLOBIN 12.7 g/dL (12.0-18.0); LYMPH % 12.9 % (20.0-40.0); MEAN CELL VOLUME 89.4 fL (80.0-94.0); MEAN CORPUSCULAR HEMOGLOBIN 31.1 pg (27.0-31.0); MEAN CORPUSCULAR HGB CONC 34.8 g/dL (33.0-37.0); MEAN PLATELET VOLUME 9.6 fL (7.2-11.7); MONO # 0.7 K/uL (0.0-0.8); MONO % 8.7 % (0.0-10.0); NEUT # 6.2 K/uL (1.8-7.0); NEUT % 76.4 % (50.0-75.0); RBC 4.09 Mil/uL (4.40-5.90); WHITE BLOOD COUNT 8.1 K/uL (4.8-10.8)
[2017-08-27 23:54] LABS: INR 1.2; PROTHROMBIN TIME 13.4 SECONDS (9.7-12.2)
[2017-08-27 23:58] LABS: ALB/GLOB RATIO 1.2 (1.0-2.1); ALBUMIN 4.1 g/dL (3.5-5.0); ALT/SGPT 31 U/L (21-72); AST/SGOT 19 U/L (17-59); BLOOD UREA NITROGEN 11 mg/dL (9-20); CALCIUM 8.5 mg/dl (8.6-10.4); GFR AFRICAN-AMERICAN > 60; GFR NON-AFRICAN AMERICAN > 60; LIPASE 56 U/L (23-300)
[2017-08-28 00:10] LABS: B-TYPE NATRIURETIC PEPTIDE 16.8 pg/mL (0-450)
[2017-08-28 06:59] LABS: URINE BILIRUBIN NEGATIVE (NEGATIVE); URINE BLOOD NEGATIVE (NEGATIVE); URINE CLARITY Clear (Clear); URINE COLOR Yellow (YELLOW); URINE GLUCOSE (UA) NORMAL (Normal); URINE LEUKOCYTE ESTERASE NEG Leu/uL (Negative); URINE NITRATE NEGATIVE (NEGATIVE); URINE PROTEIN NEGATIVE (NEGATIVE); URINE UROBILINOGEN NORMAL mg/dL (0.2-1.0)
[2017-08-28 07:34] LABS: HDL CHOLESTEROL 30 mg/dL (30-70)
[2017-08-28 07:45] LABS: LDL CHOLESTEROL 152 mg/dL (0-129)
--- NOTE | 2017-08-28 08:38 | RAD ---
Chest x-ray single frontal view History: Chest pain. Comparison: 03/11/2017 Findings: No focal infiltrate. Left basilar atelectasis. Heart size within normal limits. Degenerative changes in the spine. Impression: Mild left basilar atelectasis.
[2017-08-28] MEDS ORDERED: Aminophylline 25 mg/ml Inj ONE (08:47)
[2017-08-28] MEDS ORDERED: Ergocalciferol 50,000 Intl Units Cap PO SCH (10:00)
[2017-08-28] MEDS ORDERED: FLUTICASONE PROPIONATE 0.22 MG IH SCH (10:00)
--- NOTE | 2017-08-28 10:02 | CP.PCM.CON ---
History of Present Illness - History of Present Illness History of Present Illness: I was asked to see patient by Dr Browne. Patient is a 46 year male with PMH HTN, hypercholewterolemia, CAD s/p PCI LAD, RCA who presents with chest pain. The patient has has multiple previous evaluatioins for chest pain. His last cardiac cath was over one year ago and revealed patent stents is the LAD and RCA. He was previously placed on Ranexa therapy and nitrates. Review of Systems - Constitutional Constitutional: absent: As Per HPI, Anorexia, Chills, Daytime Sleepiness, Excessive Sweating, Fatigue, Fever, Frequent Falls, Headache, Increased Appetite , Lethargy, Malaise, Night Sweats, Snoring, Sleep Apnea, Weight Gain, Weight Loss, Weakness, Other - EENT Eyes: absent: As Per HPI, Blind Spots, Blurred Vision, Change in Vision, Decreased Night Vision, Diplopia, Discharge, Dry Eye, Exophthalmos, Floaters, Irritation, Itchy Eyes, Loss of Peripheral Vision, Pain, Photophobia, Requires Corrective Lenses, Sees Flashes, Spots in Vision, Tunnel Vision, Other Visual Disturbances, Loss of Vision, Other Ears: absent: As Per HPI, Decreased Hearing, Ear Discharge, Ear Pain, Tinnitus, Abnormal Hearing, Disequilibrium, Dizziness, Other Nose/Mouth/Throat: absent: As Per HPI, Epistaxis, Nasal Congestion, Nasal Discharge, Nasal Obstruction, Nasal Trauma, Nose Pain, Post Nasal Drip, Sinus Pain, Sinus Pressure, Bleeding Gums, Change in Voice, Dental Pain, Dry Mouth, Dysphagia, Halitosis, Hoarsness, Lip Swelling, Mouth Lesions, Mouth Pain, Odynophagia, Sore Throat, Throat Swelling, Tongue Swelling, Facial Pain, Neck Pain, Neck Mass, Other - Cardiovascular Cardiovascular: Chest Pain, Dyspnea - Respiratory Respiratory: Dyspnea - Gastrointestinal Gastrointestinal: absent: As Per HPI, Abdominal Pain, Belching, Bloating, Change in Bowel Habits, Change in Stool Character, Coffee Ground Emesis, Constipation, Cramping, Diarrhea, Dyspepsia, Dysphagia, Early Satiety, Excessive Flatus, Fecal Incontinence, Heartburn, Hematemesis, Hematochezia, Loose Stools, Melena, Nausea, Odynophagia, Temesmus, Vomiting, Other - Genitourinary Genitourinary: absent: As Per HPI, Change in Urinary Stream, Difficulty Urinating, Dysuria, Flank Pain, Hematuria, Pyuria, Nocturia, Urinary Incontinence, Urinary Frequency, Urinary Hesitance, Urinary Urgency, Voiding Freq/Small Amts, Freq UTI, Hx Renal/Bladder Calculi, Hx /Renal Surgery, Bladder Distension, Other - Musculoskeletal Musculoskeletal: absent: As Per HPI, Abnormal Gait, Arthralgias, Atrophy, Back Pain, Deformity, Joint Swelling, Limited Range of Motion, Loss of Height, Muscle Cramps, Muscle Weakness, Myalgias, Neck Pain, Numbness, Radiating Pain into Limb, Stiffness, Tingling, Other - Integumentary Integumentary: absent: As Per HPI, Acne, Alopecia, Bleeding Lesions, Change in Hair, Change in Nails, Change in Pigmentation, Changing Lesions, Dry Skin, Erythema, Furuncle, Hirsutism, Lesions, New Lesions, Non-Healing Lesions, Photosensitivity, Pruritus, Rash, Skin Pain, Skin Ulcer, Sores, Striae, Swelling , Unusual Bruising, Wounds, Jaundice, Other - Neurological Neurological: absent: As Per HPI, Abnormal Gait, Abnormal Hearing, Abnormal Movements, Abnormal Speech, Behavioral Changes, Burning Sensations, Confusion, Convulsions, Disequilibrium, Dizziness, Numbness, Focal Weakness, Frequent Falls , Headaches, Lack of Coordination, Loss of Vision, Memory Loss, Paresthesias, Radicular Pain, Restless Legs, Sensory Deficit, Syncope, Tingling, Tremor, Vertigo, Weakness, Other Visual Disturbances, Other - Psychiatric Psychiatric: absent: As Per HPI, Abnormal Sleep Pattern, Anhedonia, Anxiety, Auditory Hallucinations, Behavioral Changes, Change in Appetite, Change in Libido, Confusion, Depression, Difficulty Concentrating, Hallucinations, Homicidal Ideation, Hopelessness, Irritability, Memory Loss, Mood Swings, Panic Attacks, Paranoia, Suicidal Ideation, Visual Hallucinations, Tactile Hallucinations, Other - Endocrine Endocrine: absent: As Per HPI, Change in Body Appearance, Change in Libido, Cold Intolorance, Deepening of Voice, Excessive Sweating, Fatigue, Flushing, Heat Intolorance, Increase in Ring/Shoe/Hat Size, Palpitations, Polydipsia, Polyphagia, Polyuria, Other Past Patient History - Infectious Disease Hx of Infectious Diseases: None - Past Medical History & Family History Past Medical History?: Yes - Past Social History Smoking Status: Light Smoker < 10 Cigarettes Daily - CARDIAC Hx Cardiac Disorders: Yes Hx Congestive Heart Failure: Yes Hx Hypercholesterolemia: Yes Hx Hypertension: Yes - PULMONARY Hx Respiratory Disorders: Yes Hx Asthma: Yes Hx Chronic Obstructive Pulmonary Disease (COPD): Yes - NEUROLOGICAL Hx Neurological Disorder: No - HEENT Hx HEENT Problems: Yes Other/Comment: wears glasses - RENAL Hx Chronic Kidney Disease: No - ENDOCRINE/METABOLIC Hx Endocrine Disorders: No - HEMATOLOGICAL/ONCOLOGICAL Hx Blood Disorders: No - INTEGUMENTARY Hx Dermatological Problems: No - MUSCULOSKELETAL/RHEUMATOLOGICAL Hx Musculoskeletal Disorders: No Hx Falls: No - GASTROINTESTINAL Hx Gastrointestinal Disorders: Yes Hx Gastroesophageal Reflux: Yes - GENITOURINARY/GYNECOLOGICAL Hx Genitourinary Disorders: No - PSYCHIATRIC Hx Psychophysiologic Disorder: Yes Hx Anxiety: Yes Hx Depression: Yes Hx Substance Use: No - SURGICAL HISTORY Hx Surgeries: Yes Hx Coronary Stent: Yes (X2) - ANESTHESIA Hx Anesthesia: Yes Hx Anesthesia Reactions: No Hx Malignant Hyperthermia: No Meds Allergies/Adverse Reactions: Allergies Allergy/AdvReac Type Severity Reaction Status Date / Time No Known Allergies Allergy Verified 09/23/16 09:56 - Medications Medications: Current Medications Aspirin (Aspirin Chewable) 81 mg PO DAILY [facility] Clopidogrel Bisulfate (Plavix) 75 mg PO DAILY [facility] Enoxaparin Sodium (Lovenox) 40 mg SC DAILY [facility] Ergocalciferol (Drisdol 50,000 Intl Units Cap) 1 cap PO QWK [facility] Famotidine (Pepcid) 20 mg PO BID [facility] Fenofibrate (Tricor) 145 mg PO DAILY [facility] Gabapentin (Neurontin) 600 mg PO HS [facility] Isosorbide Mononitrate (Imdur Er) 30 mg PO DAILY [facility] Metoprolol Succinate (Toprol Xl) 25 mg PO DAILY [facility] Mometasone Furoate (Asmanex Twisthaler 110 Mcg) 2 puff INH RBID [facility] Montelukast Sodium (Singulair) 10 mg PO HS [facility] Morphine Sulfate (Morphine) 1 mg IVP Q4H PRN PRN Reason: chest pain Ranolazine (Ranexa) 1,000 mg PO BID [facility] Rosuvastatin Calcium (Crestor) 5 mg PO HS [facility] Physical Exam - Constitutional Appears: Non-toxic - Head Exam Head Exam: NORMAL INSPECTION - Eye Exam Eye Exam: Normal appearance - ENT Exam ENT Exam: Mucous Membranes Moist - Neck Exam Neck exam: Positive for: Full Rom, Normal Inspection - Respiratory Exam Respiratory Exam: NORMAL BREATHING PATTERN - Cardiovascular Exam Cardiovascular Exam: REGULAR RHYTHM - GI/Abdominal Exam GI & Abdominal Exam: Normal Bowel Sounds - Rectal Exam Rectal Exam: Deferred - Extremities Exam Extremities exam: Positive for: normal inspection - Back Exam Back exam: NORMAL INSPECTION - Neurological Exam Neurological exam: Alert, Oriented x3 - Psychiatric Exam Psychiatric exam: Normal Affect, Normal Mood - Skin Skin Exam: Normal Color Results - Vital Signs Recent Vital Signs: Last Vital Signs Temp 98.7 F 08/28/17 07:30 Pulse 74 08/28/17 08:00 Resp 18 08/28/17 07:30 BP 104/69 08/28/17 07:30 Pulse Ox 98 08/28/17 07:30 - Labs Result Diagrams: 08/27/17 23:43 08/27/17 23:43 Labs: Laboratory Results - last 24 hr 08/27/17 08/27/17 08/27/17 23:43 23:43 23:43 WBC 8.1 RBC 4.09 L Hgb 12.7 Hct 36.6 MCV 89.4 MCH 31.1 H MCHC 34.8 RDW 13.0 Plt Count 211 MPV 9.6 Neut % (Auto) 76.4 H Lymph % (Auto) 12.9 L [place] % (Auto) 8.7 Eos % (Auto) 1.3 Baso % (Auto) 0.7 Neut # 6.2 Lymph # 1.0 [place] # 0.7 Eos # 0.1 Baso # 0.1 PT 13.4 H INR 1.2 APTT 32 Sodium 130 L Potassium 3.7 Chloride 98 Carbon Dioxide 23 Anion Gap 12 BUN 11 Creatinine 0.9 Est GFR ( Amer) > 60 Est GFR (Non-Af Amer) > 60 Random Glucose 110 Calcium 8.5 L Total Bilirubin 0.6 AST 19 ALT 31 Alkaline Phosphatase 53 Troponin I < 0.0120 NT-Pro-B Natriuret Pep 16.8 Total Protein 7.6 Albumin 4.1 Globulin 3.4 Albumin/Globulin Ratio 1.2 Triglycerides Cholesterol LDL Cholesterol Direct HDL Cholesterol Lipase 56 Urine Color Urine Clarity Urine pH Ur Specific [place] Urine Protein Urine Glucose (UA) Urine Ketones Urine Blood Urine Nitrate Urine Bilirubin Urine Urobilinogen Ur Leukocyte Esterase Urine WBC (Auto) Urine RBC (Auto) 08/28/17 08/28/17 06:13 06:36 WBC RBC Hgb Hct MCV MCH MCHC RDW Plt Count MPV Neut % (Auto) Lymph % (Auto) [place] % (Auto) Eos % (Auto) Baso % (Auto) Neut # Lymph # [place] # Eos # Baso # PT INR APTT Sodium Potassium Chloride Carbon Dioxide Anion Gap BUN Creatinine Est GFR ( Amer) Est GFR (Non-Af Amer) Random Glucose Calcium Total Bilirubin AST ALT Alkaline Phosphatase Troponin I < 0.0120 NT-Pro-B Natriuret Pep Total Protein Albumin Globulin Albumin/Globulin Ratio Triglycerides 185 H Cholesterol 218 H LDL Cholesterol Direct 152 H HDL Cholesterol 30 Lipase Urine Color Yellow Urine Clarity Clear Urine pH 6.0 Ur Specific [place] 1.009 Urine Protein Negative Urine Glucose (UA) Normal Urine Ketones Negative Urine Blood Negative Urine Nitrate Negative Urine Bilirubin Negative Urine Urobilinogen Normal Ur Leukocyte Esterase Neg Urine WBC (Auto) 1 Urine RBC (Auto) < 1 - EKG Data EKG Interpreted by: Myself EKG shows normal: Sinus rhythm Assessment & Plan (1) CAD (coronary artery disease) Assessment and Plan: patient will benefit from evaluation for myocardial ischemia. will perform nuclear stress test Status: Acute (2) HTN (hypertension) Assessment and Plan: blood pressure control Status: Acute (3) Hypercholesteremia Assessment and Plan: statin therapy Status: Acute
--- NOTE | 2017-08-28 10:09 | CP.PCM.PN ---
Subjective - Date & Time of Evaluation Date of Evaluation: 08/28/17 Time of Evaluation: 09:15 - Subjective Subjective: nuclear stress test performed. awaiting nuclear images Objective - Vital Signs/Intake and Output Vital Signs (last 24 hours): Temp Pulse Resp BP Pulse Ox 98.7 F 74 18 104/69 98 08/28/17 07:30 08/28/17 08:00 08/28/17 07:30 08/28/17 07:30 08/28/17 07:30 Intake and Output: 08/28/17 08/28/17 06:59 18:59 Intake Total 118 Balance 118 - Medications Medications: Current Medications Aspirin (Aspirin Chewable) 81 mg PO DAILY [facility] Clopidogrel Bisulfate (Plavix) 75 mg PO DAILY [facility] Enoxaparin Sodium (Lovenox) 40 mg SC DAILY [facility] Ergocalciferol (Drisdol 50,000 Intl Units Cap) 1 cap PO QWK [facility] Famotidine (Pepcid) 20 mg PO BID [facility] Fenofibrate (Tricor) 145 mg PO DAILY [facility] Gabapentin (Neurontin) 600 mg PO HS [facility] Isosorbide Mononitrate (Imdur Er) 30 mg PO DAILY [facility] Metoprolol Succinate (Toprol Xl) 25 mg PO DAILY [facility] Mometasone Furoate (Asmanex Twisthaler 110 Mcg) 2 puff INH RBID [facility] Montelukast Sodium (Singulair) 10 mg PO HS [facility] Morphine Sulfate (Morphine) 1 mg IVP Q4H PRN PRN Reason: chest pain Ranolazine (Ranexa) 1,000 mg PO BID [facility] Rosuvastatin Calcium (Crestor) 5 mg PO HS [facility] - Labs Labs: 08/27/17 23:43 08/27/17 23:43 PT 13.4 SECONDS (9.7-12.2) H 08/27/17 23:43 INR 1.2 08/27/17 23:43 APTT 32 SECONDS (21-34) 08/27/17 23:43 Assessment and Plan (1) CAD (coronary artery disease) Status: Acute (2) HTN (hypertension) Status: Acute (3) Hypercholesteremia Status: Acute
[2017-08-28] MEDS: Ranolazine 500 mg Extended Release Tablets PO SCH ×2 (12:25→17:21)
[2017-08-28] MEDS: Enoxaparin 40 mg Syringe SC SCH (12:25)
[2017-08-28] MEDS: Metoprolol Succinate 25 mg XL Tab PO SCH (12:25)
--- NOTE | 2017-08-28 14:56 | CARD ---
APPROVED REPORT EKG Measurement Heart [id number] <Conclusion> Normal sinus rhythm LAD Possible Left atrial enlargement Borderline ECG
--- NOTE | 2017-08-28 19:56 | CP.PCM.HP ---
History of Present Illness - History of Present Illness History of Present Illness: pt felt chest tightness and radiating to l armm somtimes feels dizzy and unbalanced Present on Admission - Present on Admission Any Indicators Present on Admission: No Review of Systems - Review of Systems Systems not reviewed;Unavailable: Acuity of Condition - Constitutional Constitutional: Headache - EENT Eyes: As Per HPI Ears: Disequilibrium, Dizziness Nose/Mouth/Throat: As Per HPI - Cardiovascular Cardiovascular: Chest Pain at Rest - Respiratory Respiratory: Dyspnea on Exertion - Gastrointestinal Gastrointestinal: As Per HPI - Genitourinary Genitourinary: As Per HPI - Reproductive: Male Reproductive:Male: As Per HPI - Musculoskeletal Musculoskeletal: As Per HPI - Integumentary Integumentary: As Per HPI - Neurological Neurological: As Per HPI - Psychiatric Psychiatric: As Per HPI - Endocrine Endocrine: As Per HPI - Hematologic/Lymphatic Hematologic: As Per HPI Past Patient History - Infectious Disease Hx of Infectious Diseases: None - Past Medical History & Family History Past Medical History?: Yes - Past Social History Smoking Status: Light Smoker < 10 Cigarettes Daily - CARDIAC Hx Cardiac Disorders: Yes Hx Congestive Heart Failure: Yes Hx Hypercholesterolemia: Yes Hx Hypertension: Yes - PULMONARY Hx Respiratory Disorders: Yes Hx Asthma: Yes Hx Chronic Obstructive Pulmonary Disease (COPD): Yes - NEUROLOGICAL Hx Neurological Disorder: No - HEENT Hx HEENT Problems: Yes Other/Comment: wears glasses - RENAL Hx Chronic Kidney Disease: No - ENDOCRINE/METABOLIC Hx Endocrine Disorders: No - HEMATOLOGICAL/ONCOLOGICAL Hx Blood Disorders: No - INTEGUMENTARY Hx Dermatological Problems: No - MUSCULOSKELETAL/RHEUMATOLOGICAL Hx Musculoskeletal Disorders: No Hx Falls: No - GASTROINTESTINAL Hx Gastrointestinal Disorders: Yes Hx Gastroesophageal Reflux: Yes - GENITOURINARY/GYNECOLOGICAL Hx Genitourinary Disorders: No - PSYCHIATRIC Hx Psychophysiologic Disorder: Yes Hx Anxiety: Yes Hx Depression: Yes Hx Substance Use: No - SURGICAL HISTORY Hx Surgeries: Yes Hx Coronary Stent: Yes (X2) - ANESTHESIA Hx Anesthesia: Yes Hx Anesthesia Reactions: No Hx Malignant Hyperthermia: No Meds Allergies/Adverse Reactions: Allergies Allergy/AdvReac Type Severity Reaction Status Date / Time No Known Allergies Allergy Verified 09/23/16 09:56 Physical Exam - Constitutional Appears: Non-toxic - Head Exam Head Exam: ATRAUMATIC - Eye Exam Eye Exam: Normal appearance Pupil Exam: NORMAL ACCOMODATION - ENT Exam ENT Exam: Mucous Membranes Moist - Neck Exam Neck exam: Positive for: Full Rom - Respiratory Exam Respiratory Exam: Clear to Auscultation Bilateral - Cardiovascular Exam Cardiovascular Exam: REGULAR RHYTHM - GI/Abdominal Exam GI & Abdominal Exam: Normal Bowel Sounds - Rectal Exam Rectal Exam: NORMAL INSPECTION - Extremities Exam Extremities exam: Positive for: normal inspection - Back Exam Back exam: NORMAL INSPECTION - Neurological Exam Neurological exam: Oriented x3 - Psychiatric Exam Psychiatric exam: Normal Affect - Skin Skin Exam: Normal Color Results - Vital Signs Recent Vital Signs: Last Vital Signs Temp 98.9 F 08/28/17 15:00 Pulse 83 08/28/17 16:00 Resp 20 08/28/17 15:00 BP 105/63 08/28/17 15:00 Pulse Ox 96 08/28/17 15:00 - Labs Result Diagrams: 08/27/17 23:43 08/27/17 23:43 Labs: Laboratory Results - last 24 hr 08/27/17 08/27/17 08/27/17 23:43 23:43 23:43 WBC 8.1 RBC 4.09 L Hgb 12.7 Hct 36.6 MCV 89.4 MCH 31.1 H MCHC 34.8 RDW 13.0 Plt Count 211 MPV 9.6 Neut % (Auto) 76.4 H Lymph % (Auto) 12.9 L Pratt % (Auto) 8.7 Eos % (Auto) 1.3 Baso % (Auto) 0.7 Neut # 6.2 Lymph # 1.0 Pratt # 0.7 Eos # 0.1 Baso # 0.1 PT 13.4 H INR 1.2 APTT 32 Sodium 130 L Potassium 3.7 Chloride 98 Carbon Dioxide 23 Anion Gap 12 BUN 11 Creatinine 0.9 Est GFR ( Amer) > 60 Est GFR (Non-Af Amer) > 60 Random Glucose 110 Calcium 8.5 L Total Bilirubin 0.6 AST 19 ALT 31 Alkaline Phosphatase 53 Troponin I < 0.0120 NT-Pro-B Natriuret Pep 16.8 Total Protein 7.6 Albumin 4.1 Globulin 3.4 Albumin/Globulin Ratio 1.2 Triglycerides Cholesterol LDL Cholesterol Direct HDL Cholesterol Lipase 56 Urine Color Urine Clarity Urine pH Ur Specific [place] Urine Protein Urine Glucose (UA) Urine Ketones Urine Blood Urine Nitrate Urine Bilirubin Urine Urobilinogen Ur Leukocyte Esterase Urine WBC (Auto) Urine RBC (Auto) 08/28/17 08/28/17 08/28/17 06:13 06:36 17:17 WBC RBC Hgb Hct MCV MCH MCHC RDW Plt Count MPV Neut % (Auto) Lymph % (Auto) Pratt % (Auto) Eos % (Auto) Baso % (Auto) Neut # Lymph # Pratt # Eos # Baso # PT INR APTT Sodium Potassium Chloride Carbon Dioxide Anion Gap BUN Creatinine Est GFR ( Amer) Est GFR (Non-Af Amer) Random Glucose Calcium Total Bilirubin AST ALT Alkaline Phosphatase Troponin I < 0.0120 < 0.0120 NT-Pro-B Natriuret Pep Total Protein Albumin Globulin Albumin/Globulin Ratio Triglycerides 185 H Cholesterol 218 H LDL Cholesterol Direct 152 H HDL Cholesterol 30 Lipase Urine Color Yellow Urine Clarity Clear Urine pH 6.0 Ur Specific [place] 1.009 Urine Protein Negative Urine Glucose (UA) Normal Urine Ketones Negative Urine Blood Negative Urine Nitrate Negative Urine Bilirubin Negative Urine Urobilinogen Normal Ur Leukocyte Esterase Neg Urine WBC (Auto) 1 Urine RBC (Auto) < 1 Assessment & Plan - Assessment and Plan (Free Text) Assessment: ac chest pain cad dizziness Plan: consult and as per orders - Date & Time Date: 08/28/17 Time: 19:58
[2017-08-28] MEDS ORDERED: Mometasone 110 mcg/puff-30 puff Inh INH SCH (20:00)
[2017-08-28] MEDS ORDERED: FENOFIBRATE PO SCH (22:00)
--- NOTE | 2017-08-29 08:27 | CARD ---
APPROVED REPORT Protocol: PHARMACOLOGICAL STRESS Test Type: LEXISCAN Test Indications: CHEST PAIN Medications: LIST SCAN Medical History: CHEST PAIN Target HR: 172 bpm Resting ECG: normal Resting Heart Rate: 98 bpm Resting Blood Pressure: 114/70mmHg submaximum (85%): 146 bpm TEST SUMMARY [id number]:02..1.0./.0. PRETESTWARM-UP09:[id number]/70.0. INFUSIONDOSE 100:300.00.01.0120/.0. [id number]:[id number]/60.0. PROCEDURE Pharmacologic stress testing was performed using 0.4mg per 5ml of regadenoson given intravenously over 7-10 seconds. Reversal agent aminophyline 125 mg, given intravenously for Chest Pain.Dizziness. POST EXERCISE Reason for Termination: Protocol Completed Target HR: No Max HR: 120 bpm 77% of Maximum Predicted HR: 172 bpm Exercise duration: 00:30 min:sec, 0 Stage Exercise capacity: 1.0METs Max Blood Pressure: 128/60mmHg Blood Pressure response to exercise: normal resting BP - appropriate response Heart Rate response to exercise: appropriate Chest Pain: No, none Angina index: 0 Arrhythmia: No, none ST Change: No, none Deviation: 0 mm INTERPRETATION Stress EKG Conclusion: AWAIT NUCLEAR IMAGES EXAM: Myocardial Perfusion STRESS/REST Imaging Protocol The imaging protocol used to acquire images was Stress Tc-99m/rest Tc-99m 1 day Stress Spect myocardial perfusion imaging was performed in supine position 41 minutes following the injection of 12.1 mCi of Tc-99 Myoview. Gated Rest Spect was performed minutes after intravenous 32 mCi Tc-99 Myoview injection. The images were gated to evaluate regional wall motion and calculate ventricular ejection fraction.Images were reconstructed using backfilter projection method in short horizontal and verticle long axis. Spect slices were generated. RESTING DATA EDV85.76jlJZ4.00L/min1/3 Pk. Filling Rate1.79EDV/sec LV Time to Pk. Filling Jzou471.96msec ESV30.00mlMyocardial Hbfo900.00gLV Time to Pk. Ejection Ohxw691.21msec Pk. Fill Rate3.31EDV/secAv. Heart Rate73.00bpm EF65.00%Pk. Emptying Rate4.38ESV/sec STRESS DATA EDV97.77faZB7.60L/min ESV35.00mlMyocardial Jhah656.00g Pk. Fill Rate3.29EDV/sec EF64.00%Pk. Emptying Rate4.10ESV/sec 1/3 Pk. Filling Rate2.08EDV/secRegional WT score at stress:0.00 LV Time to Pk. Filling Rate:108.63msecRegional WM score at stress:0.00 LV Time to Pk. Ejection Rate:239.27msecSummed WT score at stress:4.00 Av. Heart Rate74.00bpmSummed WM score at stress:1.00 LV Perf. Quant 17 Seg. SSS3.00 17 Seg. SRS4.00 17 Seg. SDS0.00 Stress Defect Extent (% LAD)5.00Rest Defect Extent (% LAD)8.80Rev. Defect Extent (% LAD)0.00 Stress Defect Extent (% LCX)1.30Rest Defect Extent (% LCX)0.00Rev. Defect Extent (% LCX)0.00 Stress Defect Extent (% RCA)8.90Rest Defect Extent (% RCA)3.30Rev. Defect Extent (% RCA)1.10 Stress Defect Extent (% EDWAR)8.30Rest Defect Extent (% EDWAR)8.00Rev. Defect Extent (% EDWAR)0.40 Other Information Quality:Excellent IMPRESSION Abnormal Myocardial Perfusion exercise stress study Global LV Function: Normal Stress Test Summary: Nondiagnostic LV Perfusion Summary: Abnormal Left Ventricle LV Size/Shape: The left ventricle is normal size. LV Thickness: There is normal left ventricular wall thickness. LV Function:Left ventricle systolic function is normal. The Ejection Fraction is 50-55%. Regional Wall Motion:No regional wall motion abnormalities noted. Metabolism/Perfusion Reversible/Irreversible: There is a medium irreversible perfusion/metabolism defect in the Apical inferior wall. Conclusion 1. Infarction of the inferoapical segment of the left ventricle. 2. No evidence of myocardia lischemia. 3. Normal left ventricular function.
--- NOTE | 2017-08-29 08:38 | CP.PCM.PN ---
Subjective - Date & Time of Evaluation Date of Evaluation: 08/29/17 Time of Evaluation: 08:30 - Subjective Subjective: area of infarction of the inferoapical wall of the left ventricle, but n oischemia. Normal left ventricular function. Recommend medical therapy with nitrates/Ranexa. Objective - Vital Signs/Intake and Output Vital Signs (last 24 hours): Temp Pulse Resp BP Pulse Ox 98.6 F 84 20 105/63 97 08/28/17 23:55 08/29/17 00:00 08/28/17 23:55 08/28/17 23:55 08/28/17 23:55 Intake and Output: 08/29/17 08/29/17 06:59 18:59 Intake Total 800 Output Total 300 Balance 500 - Medications Medications: Current Medications Acetaminophen (Tylenol 325mg Tab) 650 mg PO Q6 PRN PRN Reason: Pain, moderate (4-7) Last Admin: 08/28/17 14:49 Dose: 650 mg Aspirin (Aspirin Chewable) 81 mg PO DAILY [facility] Last Admin: 08/28/17 12:25 Dose: 81 mg Clopidogrel Bisulfate (Plavix) 75 mg PO DAILY [facility] Last Admin: 08/28/17 12:26 Dose: 75 mg Enoxaparin Sodium (Lovenox) 40 mg SC DAILY [facility] Last Admin: 08/28/17 12:25 Dose: 40 mg Ergocalciferol (Drisdol 50,000 Intl Units Cap) 1 cap PO QWK [facility] Last Admin: 08/28/17 12:25 Dose: 1 cap Famotidine (Pepcid) 20 mg PO BID [facility] Last Admin: 08/28/17 17:22 Dose: 20 mg Fenofibrate (Tricor) 145 mg PO DAILY [facility] Last Admin: 08/28/17 12:25 Dose: 145 mg Gabapentin (Neurontin) 600 mg PO HS [facility] Last Admin: 08/28/17 21:44 Dose: 600 mg Isosorbide Mononitrate (Imdur Er) 30 mg PO DAILY [facility] Last Admin: 08/28/17 12:24 Dose: 30 mg Metoprolol Succinate (Toprol Xl) 25 mg PO DAILY [facility] Last Admin: 08/28/17 12:25 Dose: 25 mg Mometasone Furoate (Asmanex Twisthaler 110 Mcg) 2 puff INH RBID [facility] Montelukast Sodium (Singulair) 10 mg PO HS [facility] Last Admin: 08/28/17 21:44 Dose: 10 mg Morphine Sulfate (Morphine) 1 mg IVP Q4H PRN PRN Reason: chest pain Nicotine (Nicoderm Cq) 1 patch TD DAILY [facility] Last Admin: 08/28/17 21:11 Dose: 1 patch Ranolazine (Ranexa) 1,000 mg PO BID [facility] Last Admin: 08/28/17 17:21 Dose: 1,000 mg Rosuvastatin Calcium (Crestor) 5 mg PO [facility] Last Admin: 08/28/17 21:44 Dose: 5 mg - Labs Labs: 08/27/17 23:43 08/27/17 23:43 PT 13.4 SECONDS (9.7-12.2) H 08/27/17 23:43 INR 1.2 08/27/17 23:43 APTT 32 SECONDS (21-34) 08/27/17 23:43 Assessment and Plan (1) CAD (coronary artery disease) Status: Acute (2) HTN (hypertension) Status: Acute (3) Hypercholesteremia Status: Acute
[2017-08-29] MEDS: Ranolazine 500 mg Extended Release Tablets PO SCH ×2 (09:34→17:26)
[2017-08-29] MEDS: Metoprolol Succinate 25 mg XL Tab PO SCH (09:34)
[2017-08-29] MEDS: Enoxaparin 40 mg Syringe SC SCH (09:36)
--- NOTE | 2017-08-29 15:42 | CON ---
DATE: 08/29/2017 REQUESTING PHYSICIAN: Dr. Browne. REASON FOR CONSULTATION: Dizziness. HISTORY OF PRESENT ILLNESS: This is a 46-year-old male with a 1 week history of dizziness, on and off lasting for hours, zozabjma-qo-[id number] in intensity. Patient also complains of tinnitus bilateral, mild for 1 month, on and off, usually happens at night and no hearing loss. PAST MEDICAL HISTORY: As noted in the chart by me. MEDICATIONS: As noted in the chart by me. ALLERGIES: NO KNOWN DRUG ALLERGIES. PHYSICAL EXAMINATION: HEAD: Atraumatic, normocephalic. FACE: Good facial movements bilaterally. GENERAL: Well fed, well nourished. COMMUNICATION: Communicates well and appropriately. EXTERNAL NOSE AND EARS: No masses, no lesions, no erythema, no edema. Deviated septum. EARS: TM intact with no fluid behind it. No masses, no lesions, no erythema, no edema. ORAL CAVITY AND OROPHARYNX: No masses, no lesions, no erythema, no edema. LIPS AND GUMS: No masses, no lesions, no erythema, no edema. NECK: Supple. THYROID: No thyromegaly, no goiter. LYMPH NODES: No lymphadenopathy of neck. ASSESSMENT: 1. Dizziness. 2. Tinnitus. 3. Deviated septum. PLAN: Patient can be discharged home from an ENT point of view and follow up as an outpatient for a VNG and a hearing test. Recommend a neurology consult. Luis Daniel Martínez MD
[2017-08-30] MEDS: Mometasone 110 mcg/puff-30 puff Inh INH SCH ×2 (07:20→21:57)
[2017-08-30] MEDS: Ranolazine 500 mg Extended Release Tablets PO SCH ×2 (10:11→17:48)
[2017-08-30] MEDS: Metoprolol Succinate 25 mg XL Tab PO SCH (10:11)
[2017-08-30] MEDS: Enoxaparin 40 mg Syringe SC SCH (10:13)
--- NOTE | 2017-08-30 10:35 | CP.PCM.PN ---
Subjective - Date & Time of Evaluation Date of Evaluation: 08/30/17 Time of Evaluation: 10:32 - Subjective Subjective: headeack dizziness pain epigastric area stress don old infarction ct don will get neurocons Objective - Vital Signs/Intake and Output Vital Signs (last 24 hours): Temp Pulse Resp BP Pulse Ox 98.3 F 79 20 111/69 97 08/30/17 08:25 08/30/17 10:09 08/30/17 08:25 08/30/17 10:09 08/30/17 08:25 Intake and Output: 08/30/17 08/30/17 06:59 18:59 Intake Total 980 Balance 980 - Medications Medications: Current Medications Acetaminophen (Tylenol 325mg Tab) 650 mg PO Q6 PRN PRN Reason: Pain, moderate (4-7) Last Admin: 08/30/17 06:39 Dose: 650 mg Aspirin (Aspirin Chewable) 81 mg PO DAILY [facility] Last Admin: 08/30/17 10:10 Dose: 81 mg Clopidogrel Bisulfate (Plavix) 75 mg PO DAILY [facility] Last Admin: 08/30/17 10:10 Dose: 75 mg Enoxaparin Sodium (Lovenox) 40 mg SC DAILY [facility] Last Admin: 08/30/17 10:13 Dose: 40 mg Ergocalciferol (Drisdol 50,000 Intl Units Cap) 1 cap PO Q7D [facility] Famotidine (Pepcid) 20 mg PO BID [facility] Last Admin: 08/30/17 10:10 Dose: 20 mg Fenofibrate (Tricor) 145 mg PO DAILY [facility] Last Admin: 08/30/17 10:11 Dose: 145 mg Gabapentin (Neurontin) 600 mg PO HS [facility] Last Admin: 08/29/17 21:45 Dose: 600 mg Isosorbide Mononitrate (Imdur Er) 30 mg PO DAILY [facility] Last Admin: 08/30/17 10:10 Dose: 30 mg Metoprolol Succinate (Toprol Xl) 25 mg PO DAILY [facility] Last Admin: 08/30/17 10:11 Dose: 25 mg Mometasone Furoate (Asmanex Twisthaler 110 Mcg) 2 puff INH RBID [facility] Last Admin: 08/30/17 07:20 Dose: 2 puff Montelukast Sodium (Singulair) 10 mg PO HS [facility] Last Admin: 08/29/17 21:45 Dose: 10 mg Morphine Sulfate (Morphine) 1 mg IVP Q4H PRN PRN Reason: chest pain Nicotine (Nicoderm Cq) 1 patch TD DAILY [facility] Last Admin: 08/30/17 10:15 Dose: 1 patch Ranolazine (Ranexa) 1,000 mg PO BID [facility] Last Admin: 08/30/17 10:11 Dose: 1,000 mg Rosuvastatin Calcium (Crestor) [address] [facility] Last Admin: 08/29/17 21:45 Dose: 5 mg - Labs Labs: 08/27/17 23:43 08/27/17 23:43 PT 13.4 SECONDS (9.7-12.2) H 08/27/17 23:43 INR 1.2 08/27/17 23:43 APTT 32 SECONDS (21-34) 08/27/17 23:43 - Constitutional Appears: Non-toxic - Head Exam Head Exam: NORMAL INSPECTION - Eye Exam Eye Exam: Normal appearance Pupil Exam: NORMAL ACCOMODATION - ENT Exam ENT Exam: Mucous Membranes Moist - Respiratory Exam Respiratory Exam: NORMAL BREATHING PATTERN - Cardiovascular Exam Cardiovascular Exam: REGULAR RHYTHM - GI/Abdominal Exam GI & Abdominal Exam: Tenderness, Normal Bowel Sounds - Exam Exam: NORMAL INSPECTION - Extremities Exam Extremities Exam: Full ROM - Neurological Exam Neurological Exam: Alert, Normal Gait, Oriented x3 - Psychiatric Exam Psychiatric exam: Normal Mood - Skin Skin Exam: Normal Color Assessment and Plan - Assessment and Plan (Free Text) Assessment: headeack dizziness neare syncope epigasric pain possible gastritis Plan: as per orders
--- NOTE | 2017-08-30 10:50 | CT ---
PROCEDURE: CT HEAD WITHOUT CONTRAST. HISTORY: persistent dizziness, blurry vision COMPARISON: None available. TECHNIQUE: Axial computed tomography images were obtained through the head/brain without intravenous contrast. Radiation dose: Total exam DLP = 920.48 mGy-cm. This CT exam was performed using one or more of the following dose reduction techniques: Automated exposure control, adjustment of the mA and/or kV according to patient size, and/or use of iterative reconstruction technique. FINDINGS: HEMORRHAGE: No intracranial hemorrhage. BRAIN: No mass effect or edema. The bravo-white matter differentiation appears intact. Please note that MRI with diffusion imaging is more sensitive in the detection of acute ischemic event. VENTRICLES: No hydrocephalus. CALVARIUM: Unremarkable. PARANASAL SINUSES: Increased attenuation of the left maxillary sinus contents may indicate proteinaceous material or fungal colonization. Mucosal thickening of the right maxillary sinus. Mucosal thickening of the left frontal sinus and ethmoid air cells. MASTOID AIR CELLS: Unremarkable as visualized. No inflammatory changes. OTHER FINDINGS: None. IMPRESSION: No acute intracranial pathology identified. Increased attenuation of the left maxillary sinus contents may indicate proteinaceous material or fungal colonization. Mucosal thickening of the right maxillary sinus. Mucosal thickening of the left frontal sinus and ethmoid air cells.
--- NOTE | 2017-08-30 13:17 | CP.PCM.CON ---
History of Present Illness - History of Present Illness History of Present Illness: 46 yr old male with pmh of HI in the past, presented with new onset chest pain and left arm numbness and tingling since last night. Patient has ruled out for HI, but has old cardiac ischemia. He has a normal neurological examination with some malingering/non specific lower limb weakness. Specifically, he stands on his legs with full strength but says he is weak. MRI Brain is negative for any acute stroke or mass lesion. Please see dictation for full consult. Past Patient History - Infectious Disease Hx of Infectious Diseases: None - Past Medical History & Family History Past Medical History?: Yes - Past Social History Smoking Status: Light Smoker < 10 Cigarettes Daily - CARDIAC Hx Cardiac Disorders: Yes Hx Congestive Heart Failure: Yes Hx Hypercholesterolemia: Yes Hx Hypertension: Yes - PULMONARY Hx Respiratory Disorders: Yes Hx Asthma: Yes Hx Chronic Obstructive Pulmonary Disease (COPD): Yes - NEUROLOGICAL Hx Neurological Disorder: No - HEENT Hx HEENT Problems: Yes Other/Comment: wears glasses - RENAL Hx Chronic Kidney Disease: No - ENDOCRINE/METABOLIC Hx Endocrine Disorders: No - HEMATOLOGICAL/ONCOLOGICAL Hx Blood Disorders: No - INTEGUMENTARY Hx Dermatological Problems: No - MUSCULOSKELETAL/RHEUMATOLOGICAL Hx Musculoskeletal Disorders: No Hx Falls: No - GASTROINTESTINAL Hx Gastrointestinal Disorders: Yes Hx Gastroesophageal Reflux: Yes - GENITOURINARY/GYNECOLOGICAL Hx Genitourinary Disorders: No - PSYCHIATRIC Hx Psychophysiologic Disorder: Yes Hx Anxiety: Yes Hx Depression: Yes Hx Substance Use: No - SURGICAL HISTORY Hx Surgeries: Yes Hx Coronary Stent: Yes (X2) - ANESTHESIA Hx Anesthesia: Yes Hx Anesthesia Reactions: No Hx Malignant Hyperthermia: No Meds Allergies/Adverse Reactions: Allergies Allergy/AdvReac Type Severity Reaction Status Date / Time No Known Allergies Allergy Verified 09/23/16 09:56 - Medications Medications: Current Medications Acetaminophen (Tylenol 325mg Tab) 650 mg PO Q6 PRN PRN Reason: Pain, moderate (4-7) Last Admin: 08/30/17 06:39 Dose: 650 mg Aspirin (Aspirin Chewable) 81 mg PO DAILY [facility] Last Admin: 08/30/17 10:10 Dose: 81 mg Clopidogrel Bisulfate (Plavix) 75 mg PO DAILY [facility] Last Admin: 08/30/17 10:10 Dose: 75 mg Enoxaparin Sodium (Lovenox) 40 mg SC DAILY [facility] Last Admin: 08/30/17 10:13 Dose: 40 mg Ergocalciferol (Drisdol 50,000 Intl Units Cap) 1 cap PO Q7D [facility] Famotidine (Pepcid) 20 mg PO BID [facility] Last Admin: 08/30/17 10:10 Dose: 20 mg Fenofibrate (Tricor) 145 mg PO DAILY [facility] Last Admin: 08/30/17 10:11 Dose: 145 mg Gabapentin (Neurontin) 600 mg PO HS [facility] Last Admin: 08/29/17 21:45 Dose: 600 mg Isosorbide Mononitrate (Imdur Er) 30 mg PO DAILY [facility] Last Admin: 08/30/17 10:10 Dose: 30 mg Loratadine (Claritin) 10 mg PO DAILY [facility] Metoprolol Succinate (Toprol Xl) 25 mg PO DAILY [facility] Last Admin: 08/30/17 10:11 Dose: 25 mg Mometasone Furoate (Asmanex Twisthaler 110 Mcg) 2 puff INH RBID [facility] Last Admin: 08/30/17 07:20 Dose: 2 puff Montelukast Sodium (Singulair) 10 mg PO HS [facility] Last Admin: 08/29/17 21:45 Dose: 10 mg Morphine Sulfate (Morphine) 1 mg IVP Q4H PRN PRN Reason: chest pain Nicotine (Nicoderm Cq) 1 patch TD DAILY [facility] Last Admin: 08/30/17 10:15 Dose: 1 patch Ranolazine (Ranexa) 1,000 mg PO BID [facility] Last Admin: 08/30/17 10:11 Dose: 1,000 mg Rosuvastatin Calcium (Crestor) 5 mg PO [facility] Last Admin: 08/29/17 21:45 Dose: 5 mg Results - Vital Signs Recent Vital Signs: Last Vital Signs Temp 98.3 F 08/30/17 08:25 Pulse 79 08/30/17 10:09 Resp 20 08/30/17 08:25 BP 111/69 08/30/17 10:09 Pulse Ox 97 08/30/17 08:25 - Labs Result Diagrams: 08/27/17 23:43 08/27/17 23:43 Assessment & Plan - Assessment and Plan (Free Text) Assessment: Patient with possible cardiac ischemia and normal neurological examination. There are no signs of Guillain [place] syndrome. Recommend physical therapy.
--- NOTE | 2017-08-30 15:20 | MRI ---
PROCEDURE: MRI BRAIN WITHOUT CONTRAST HISTORY: dizziness COMPARISON: CT 08/30/2017 TECHNIQUE: Multiplanar, multisequence MR images of the brain were obtained without intravenous contrast enhancement. FINDINGS: HEMORRHAGE: None DWI: No evidence of an acute or early subacute infarction. BRAIN PARENCHYMA: No mass effect or edema. No atrophy or chronic microvascular ischemic changes. VENTRICLES: Unremarkable. No hydrocephalus. CRANIUM: Unremarkable. ORBITS: Grossly unremarkable. PARANASAL SINUSES/MASTOIDS: There is opacification of the left maxillary sinus and left ethmoid air cells VASCULAR SYSTEM: Skull base flow voids intact. OTHER FINDINGS: The report concurs with the preliminary [facility] report IMPRESSION: No acute intracranial findings. Left-sided sinusitis
[2017-08-30] MEDS ORDERED: Sodium Chloride Nasal 0.65% Soln (30ml) NAS SCH ×2 (22:00)
[2017-08-31] MEDS: Mometasone 110 mcg/puff-30 puff Inh INH SCH (08:24)
[2017-08-31 08:40] VITALS: O2SAT 97
[2017-08-31] MEDS ORDERED: Influenza Vaccine 60 mcg/0.5 mL SYR (4YR UP) IM ONE (10:00)
--- NOTE | 2017-08-31 10:02 | CP.PCM.PN ---
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 CERVICAL SPINE DISC HERNIA Objective - Vital Signs/Intake and Output Vital Signs (last 24 hours): Temp Pulse Resp BP Pulse Ox 98.6 F 90 18 124/87 97 08/31/17 07:20 08/31/17 08:00 08/31/17 07:20 08/31/17 07:20 08/31/17 07:20 Intake and Output: 08/31/17 08/31/17 06:59 18:59 Intake Total 710 Balance 710 - Medications Medications: Current Medications Acetaminophen (Tylenol 325mg Tab) 650 mg PO Q6 PRN PRN Reason: Pain, moderate (4-7) Last Admin: 08/30/17 13:28 Dose: 650 mg Aspirin (Aspirin Chewable) 81 mg PO DAILY [facility] Last Admin: 08/30/17 10:10 Dose: 81 mg Clopidogrel Bisulfate (Plavix) 75 mg PO DAILY [facility] Last Admin: 08/30/17 10:10 Dose: 75 mg Enoxaparin Sodium (Lovenox) 40 mg SC DAILY [facility] Last Admin: 08/30/17 10:13 Dose: 40 mg Ergocalciferol (Drisdol 50,000 Intl Units Cap) 1 cap PO Q7D [facility] Famotidine (Pepcid) 20 mg PO BID [facility] Last Admin: 08/30/17 17:48 Dose: 20 mg Fenofibrate (Tricor) 145 mg PO DAILY [facility] Last Admin: 08/30/17 10:11 Dose: 145 mg Gabapentin (Neurontin) 600 mg PO HS [facility] Last Admin: 08/30/17 22:25 Dose: 600 mg Isosorbide Mononitrate (Imdur Er) 30 mg PO DAILY [facility] Last Admin: 08/30/17 10:10 Dose: 30 mg Loratadine (Claritin) 10 mg PO DAILY [facility] Last Admin: 08/30/17 13:28 Dose: 10 mg Metoprolol Succinate (Toprol Xl) 25 mg PO DAILY [facility] Last Admin: 08/30/17 10:11 Dose: 25 mg Mometasone Furoate (Asmanex Twisthaler 110 Mcg) 2 puff INH RBID [facility] Last Admin: 08/31/17 08:24 Dose: 2 puff Montelukast Sodium (Singulair) 10 mg PO [facility] Last Admin: 08/30/17 22:23 Dose: 10 mg Morphine Sulfate (Morphine) 1 mg IVP Q4H PRN PRN Reason: chest pain Nicotine (Nicoderm Cq) 1 patch TD DAILY [facility] Last Admin: 08/30/17 10:15 Dose: 1 patch Ranolazine (Ranexa) 1,000 mg PO BID [facility] Last Admin: 08/30/17 17:48 Dose: 1,000 mg Rosuvastatin Calcium (Crestor) 5 mg PO [facility] Last Admin: 08/30/17 22:22 Dose: 5 mg Sodium Chloride ([place] Baby Saline 30 Ml) 0 ml [facility] Last Admin: 08/30/17 22:22 Dose: 1 spr - Labs Labs: 08/27/17 23:43 08/27/17 23:43 PT 13.4 SECONDS (9.7-12.2) H 08/27/17 23:43 INR 1.2 08/27/17 23:43 APTT 32 SECONDS (21-34) 08/27/17 23:43 - Constitutional Appears: Non-toxic - Head Exam Head Exam: NORMAL INSPECTION - Eye Exam Eye Exam: Normal appearance Pupil Exam: NORMAL ACCOMODATION - ENT Exam ENT Exam: Mucous Membranes Moist - Neck Exam Neck Exam: Normal Inspection - Respiratory Exam Respiratory Exam: NORMAL BREATHING PATTERN - Cardiovascular Exam Cardiovascular Exam: REGULAR RHYTHM - Rectal Exam Rectal Exam: NORMAL INSPECTION - Exam External exam: NORMAL EXTERNAL EXAM - Extremities Exam Extremities Exam: Normal Inspection - Back Exam Back Exam: NORMAL INSPECTION - Neurological Exam Neurological Exam: Normal Gait, Oriented x3 - Psychiatric Exam Psychiatric exam: Normal Affect - Skin Skin Exam: Normal Color Assessment and Plan - Assessment and Plan (Free Text) Assessment: DJDD LEFT SIDE WEEKNESS ATHMA OID INFARCTION SNUSITIS Plan: D/C HOME CONT ALL MED
[2017-08-31] MEDS: Ranolazine 500 mg Extended Release Tablets PO SCH (10:23)
[2017-08-31] MEDS: Metoprolol Succinate 25 mg XL Tab PO SCH (10:23)
[2017-08-31] MEDS: Enoxaparin 40 mg Syringe SC SCH (10:27)
--- NOTE | 2017-08-31 11:15 | CP.PCM.PN ---
Subjective - Date & Time of Evaluation Date of Evaluation: 08/31/17 Time of Evaluation: 11:09 - Subjective Subjective: Mr. Christine was seen and examined at the bedside. He is alert, oriented in all spheres. He denies any headache, dizziness, blurred vision, nausea, or vomiting. He states of being left side weakness from previous shoulder pain. He is able to follow simple commands. There was no untoward events overnight. Objective - Vital Signs/Intake and Output Vital Signs (last 24 hours): Temp Pulse Resp BP Pulse Ox 98.6 F 84 18 118/80 97 08/31/17 07:20 08/31/17 10:22 08/31/17 07:20 08/31/17 10:22 08/31/17 07:20 Intake and Output: 08/31/17 08/31/17 06:59 18:59 Intake Total 710 Balance 710 - Medications Medications: Current Medications Acetaminophen (Tylenol 325mg Tab) 650 mg PO Q6 PRN PRN Reason: Pain, moderate (4-7) Last Admin: 08/30/17 13:28 Dose: 650 mg Aspirin (Aspirin Chewable) 81 mg PO DAILY [facility] Last Admin: 08/31/17 10:23 Dose: 81 mg Clopidogrel Bisulfate (Plavix) 75 mg PO DAILY [facility] Last Admin: 08/31/17 10:24 Dose: 75 mg Enoxaparin Sodium (Lovenox) 40 mg SC DAILY [facility] Last Admin: 08/31/17 10:27 Dose: 40 mg Ergocalciferol (Drisdol 50,000 Intl Units Cap) 1 cap PO Q7D [facility] Famotidine (Pepcid) 20 mg PO BID [facility] Last Admin: 08/31/17 10:24 Dose: 20 mg Fenofibrate (Tricor) 145 mg PO DAILY [facility] Last Admin: 08/31/17 10:24 Dose: 145 mg Gabapentin (Neurontin) 600 mg PO HS [facility] Last Admin: 08/30/17 22:25 Dose: 600 mg Isosorbide Mononitrate (Imdur Er) 30 mg PO DAILY [facility] Last Admin: 08/31/17 10:23 Dose: 30 mg Loratadine (Claritin) 10 mg PO DAILY [facility] Last Admin: 08/31/17 10:23 Dose: 10 mg Metoprolol Succinate (Toprol Xl) 25 mg PO DAILY [facility] Last Admin: 08/31/17 10:23 Dose: 25 mg Mometasone Furoate (Asmanex Twisthaler 110 Mcg) 2 puff INH RBID [facility] Last Admin: 08/31/17 08:24 Dose: 2 puff Montelukast Sodium (Singulair) 10 mg PO HS [facility] Last Admin: 08/30/17 22:23 Dose: 10 mg Morphine Sulfate (Morphine) 1 mg IVP Q4H PRN PRN Reason: chest pain Nicotine (Nicoderm Cq) 1 patch TD DAILY [facility] Last Admin: 08/31/17 10:27 Dose: 1 patch Ranolazine (Ranexa) 1,000 mg PO BID [facility] Last Admin: 08/31/17 10:23 Dose: 1,000 mg Rosuvastatin Calcium (Crestor) 5 mg PO HS [facility] Last Admin: 08/30/17 22:22 Dose: 5 mg Sodium Chloride ([place] Baby Saline 30 Ml) 0 ml [facility] Last Admin: 08/30/17 22:22 Dose: 1 spr - Labs Labs: 08/27/17 23:43 08/27/17 23:43 PT 13.4 SECONDS (9.7-12.2) H 08/27/17 23:43 INR 1.2 08/27/17 23:43 APTT 32 SECONDS (21-34) 08/27/17 23:43 - Constitutional Appears: No Acute Distress - Head Exam Head Exam: NORMAL INSPECTION - Neurological Exam Neurological Exam: Alert, Awake, Oriented x3 Neuro motor strength exam: Left Upper Extremity: 5, Right Upper Extremity: 5, Left Lower Extremity: 5, Right Lower Extremity: 5 Additional comments: Neurological unchanged from previous examination. Assessment and Plan (1) Head ache Assessment & Plan: Case discussed with Dr. Arizmendi, continue all current medical, physical therapy. There is no new recommendations from neurology. Status: Acute
[2017-08-31 15:41] VITALS: BP 112/64; PULSE 68; RESP 20; TEMP 97.9
--- NOTE | 2017-09-01 04:51 | CARD ---
APPROVED REPORT EKG Measurement Heart [id number] <Conclusion> Normal sinus rhythm Low voltage QRS Borderline ECG
--- NOTE | 2017-09-01 05:17 | CARD ---
APPROVED REPORT EKG Measurement Heart [id number] <Conclusion> Normal sinus rhythm Low voltage QRS Inferior infarct, age undetermined Abnormal ECG
--- NOTE | 2017-09-01 09:43 | VASCLAB ---
PROCEDURE: HISTORY: Atherosclerosis, PAD COMPARISON: None available. TECHNIQUE: Grayscale and duplex Doppler evaluation of the cervical carotid and vertebral arteries were performed. The common carotid, carotid bifurcations and cervical Internal Carotid Artery (ICA) and proximal External Carotid Artery (ECA) were evaluated. The vertebral arteries were evaluated for gross patency and flow direction. Report prepared by Raul Simeon, BS, RVT FINDINGS: RIGHT CAROTID ARTERIES: 1. Common Carotid Artery: No significant focal plaque formation of the right common carotid artery. Maximum Peak Systolic velocity: 91 cm/sec: End-diastolic velocity 32 cm/sec. 2. Carotid Bifurcation: plaque formation. Maximum Peak Systolic velocity: 88 cm/sec: End-diastolic velocity 27 cm/sec. 3. Internal Carotid Artery: Plaque description: 3.1. Proximal Segment: Peak systolic velocity 66 cm/sec: End-diastolic velocity 26 cm/sec - % stenosis 0-15% 3.2. Middle Segment: Peak systolic velocity 80 cm/sec: End-diastolic velocity 35 cm/sec - % stenosis 0-15% 3.3. Distal Segment: Peak systolic velocity 74 cm/sec: End-diastolic velocity 34 cm/sec - % stenosis 0-15% 4. External Carotid Artery: No significant focal plaque formation. Peak systolic velocity 72 cm/sec 5. ICA/CCA Ratio: 1.0 LEFT CAROTID ARTERIES: 1. Common Carotid Artery: No significant focal plaque formation of the left common carotid artery. Maximum Peak Systolic velocity: 87 cm/sec: End-diastolic velocity 30 cm/sec. 2. Carotid Bifurcation: plaque formation. Maximum Peak Systolic velocity: 83 cm/sec: End-diastolic velocity 28 cm/sec. 3. Internal Carotid Artery: Plaque description: 3.1. Proximal Segment: Peak systolic velocity 77 cm/sec: End-diastolic velocity 38 cm/sec - % stenosis 0-15% 3.2. Middle Segment: Peak systolic velocity 64 cm/sec: End-diastolic velocity 32 cm/sec - % stenosis 0-15% 3.3. Distal Segment: Peak systolic velocity 83 cm/sec: End-diastolic velocity 28 cm/sec - % stenosis 0-15% 4. External Carotid Artery: No significant focal plaque formation. Peak systolic velocity 96 cm/sec 5. ICA/CCA Ratio: 1.0 VERTEBRAL ARTERIES: 1. Right Vertebral Artery: The right vertebral artery flow direction is antegrade. 2. Left Vertebral Artery: The left vertebral artery flow direction is antegrade. OTHER FINDINGS: 1. Right Brachial Blood pressure: 120 mmHg. 2. Left Brachial Blood pressure: 120 mmHg. IMPRESSION: RIGHT: Duplex scan does not suggest hemodynamically significant stenosis of the right extracranial carotid arteries. LEFT: Duplex scan does not suggest hemodynamically significant stenosis of the left extracranial carotid arteries.
[2017-09-01] MEDS ORDERED: Pneumococcal 23-Valent Vaccine IM ONE (10:00)
--- NOTE | 2017-09-03 16:01 | DS ---
DATE: HISTORY OF PRESENT ILLNESS: The patient has chest pain. He got very tight, numbness of the left arm, and he felt dizzy, so he came into the emergency room. He has a history of coronary artery disease before. His blood pressure was 105/63, his temperature was fine, his pulse ox was fine. LABORATORY DATA: CBC normal and his sugar was 110. His chemistries normal. His troponin was negative on admission, but because of his history of the coronary artery disease, he was seen by Dr. Culp and he had some tests done and it shows the old infarction in the inferior apical wall of the left ventricle, but there was no new ischemia and he was adding treatment for his angina, the nitrates and Ranexa. MEDICATIONS: Aspirin, Plavix, Pepcid, fenofibrate, Neurontin, isosorbide mononitrate, Asmanex for his asthma, Singulair for his asthma, morphine sulfate was given in the hospital but not at home, Nicoderm to stop smoking, Ranexa, and Crestor. He will be followed up in my office and he will continue on these medications and hopefully he will stop smoking. FINAL DIAGNOSES: Coronary artery disease, hypertension, hypercholesterolemia, and old inferior infarction. Sheryl Browne MD
[2017-09-04] MEDS ORDERED: Ergocalciferol 50,000 Intl Units Cap PO SCH (10:00)
== END 2017-08-31 18:41 | disposition home or self-care (01) | DRG 132 ==
LOC: C.ER 23:04 → C.6T 08-28 01:26
PROVIDERS: ADMIT Internal Medicine; ATTEND Internal Medicine
DX: I25.119 Atherosclerotic heart disease of native coronary artery with unspecified angina pectoris (principal); I11.0 Hypertensive heart disease with heart failure; I50.9 Heart failure, unspecified; J44.9 Chronic obstructive pulmonary disease, unspecified; E78.00 Pure hypercholesterolemia, unspecified; I25.2 Old myocardial infarction; F17.210 Nicotine dependence, cigarettes, uncomplicated; J34.2 Deviated nasal septum; K21.9 Gastro-esophageal reflux disease without esophagitis; H93.13 Tinnitus, bilateral; Z76.5 Malingerer [conscious simulation]; Z95.5 Presence of coronary angioplasty implant and graft

== ENCOUNTER 2018-06-23 17:24 | Inpatient (IN) | payer OTHER ==
[2018-06-23 17:25] VITALS: BMI 25.8
[2018-06-23] MEDS ORDERED: Albuterol-Ipratrop 3 mg / 0.5 (3 ml) UD INH STA (18:25)
--- NOTE | 2018-06-23 18:32 | C.PDOC ---
History Of Present Illness 47 y/o male with a PMHx of CAD, COPD, HLD, HTN, s/p stent placement, presents to the ED complaining of 1 week of tightness in his chest. Also complains of a cough associated with mild SOB. No fever. Pain worsens on coughing. Otherwise he denies any nausea, vomiting, syncope, dizziness, recent travel or hospitalizations. States he has been using his inhaler without relief. Took his usual dose of aspirin this AM, and was given 3 more en route by EMS. On arrival patient is resting comfortably, no longer complaining of pain. Time Seen by Provider: 06/23/18 17:49 Chief Complaint (Nursing): Shortness Of Breath History Per: Patient History/Exam Limitations: no limitations Onset/Duration Of Symptoms: Days (x7) Current Symptoms Are (Timing): Better Past Medical History Reviewed: Historical Data, Nursing Documentation, Vital Signs Vital Signs: Last Vital Signs Temp 98.3 F 06/23/18 17:30 Pulse 68 06/23/18 17:30 Resp 20 06/23/18 17:30 BP 128/80 06/23/18 17:30 Pulse Ox 97 06/23/18 17:30 - Medical History PMH: Anxiety, Asthma, CAD, CHF, COPD, Depression, HTN, Hypercholesterolemia Denies: Chronic Kidney Disease Surgical History: Coronary Stent (X2), Endoscopy (IN [place]) - [facility] Procedures CORONAR ARTERIOGR-2 CATH (05/25/14) INSERTION OF ONE VASCULAR STENT (10/27/13) INSRT OF DRUG-ELUTING CORON ARTERY STENTS(S) (10/27/13) LEFT HEART CARDIAC CATH (05/25/14) LT HEART ANGIOCARDIOGRAM (05/25/14) MEASURE OF CARDIAC SAMPL & PRESSURE, L HEART, PERC APPROACH (07/18/15) PERCUTANEOUS TRANSLUMINAL CORONARY ANGIOPLASTY [PTCA] (10/27/13) PLAIN RADIOGRAPHY OF LEFT HEART USING OTHER CONTRAST (07/18/15) PROCEDURE ON SINGLE VESSEL (10/27/13) Family History: States: Unknown Family Hx - Social History Hx Tobacco Use: Yes Hx Alcohol Use: No Hx Substance Use: No - Immunization History Hx Tetanus Toxoid Vaccination: No Hx Influenza Vaccination: No Hx Pneumococcal Vaccination: Yes Review Of Systems Except As Marked, All Systems Reviewed And Found Negative. Constitutional: Negative for: Fever, Chills Cardiovascular: Positive for: Chest Pain ("tightness"). Negative for: Palpitations, Light Headedness Respiratory: Positive for: Cough, Shortness of Breath. Negative for: SOB with Excertion, Wheezing Gastrointestinal: Negative for: Nausea, Vomiting, Abdominal Pain Neurological: Negative for: Weakness, Numbness, Headache, Dizziness Physical Exam - Physical Exam Appears: Non-toxic, No Acute Distress Skin: Normal Color, Warm, Dry Head: Atraumatic, Normacephalic Eye(s): bilateral: Normal Inspection, PERRL, EOMI Chest: Symmetrical, No Deformity, No Tenderness Cardiovascular: Rhythm Regular, No Murmur Respiratory: Decreased Breath Sounds (to the bilateral bases), No Rales, No Rhonchi, No Wheezing Gastrointestinal/Abdominal: Soft, No Tenderness, No Distention Extremity: Normal ROM, No Pedal Edema, No Calf Tenderness Pulses: Left Dorsalis Pedis: Normal, Right Dorsalis Pedis: Normal Neurological/Psych: Oriented x3, Normal Speech ED Course And Treatment - Laboratory Results Result Diagrams: 06/23/18 19:04 06/23/18 19:04 ECG: Interpreted By Me, Viewed By Me ECG Rhythm: Sinus Rhythm ECG Interpretation: Normal Interpretation Of ECG: Normal axis, normal intervals, no ST elevations or depressions Rate From EC (bpm) O2 Sat by Pulse Oximetry: 97 (RA) Pulse Ox Interpretation: Normal Medical Decision Making Medical Decision Making: Plan: Blood work Chest x-ray Duoneb nebulizer INH Reassess Progress: 20:50 - Spoke with Dr. Browne who accepts the patient to be admitted to her service. Dr. Browne requests for Dr. Aleman (cardiology) consult Disposition - Disposition Disposition: HOSPITALIZED Disposition Time: 20:50 Condition: STABLE - Clinical Impression Clinical Impression: Chest pain - Scribe Statement The provider has reviewed the documentation as recorded by the Luly Rebolledo Provider Attestation: All medical record entries made by the Luly were at my direction and personally dictated by me. I have reviewed the chart and agree that the record accurately reflects my personal performance of the history, physical exam, medical decision making, and the department course for this patient. I have also personally directed, reviewed, and agree with the discharge instructions and disposition.
--- NOTE | 2018-06-23 19:04 | RAD ---
HISTORY: chest pain COMPARISON: Chest x-ray performed 08/27/17 TECHNIQUE: Chest, one view. FINDINGS: LUNGS: No focal consolidation. Please note that chest x-ray has limited sensitivity for the detection of pulmonary masses. PLEURA: No significant pleural effusion identified. No definite pneumothorax . CARDIOVASCULAR: Heart size appears within normal limits. No significant atherosclerotic calcification present. OSSEOUS STRUCTURES: Degenerative changes of the spine. VISUALIZED UPPER ABDOMEN: Unremarkable. OTHER FINDINGS: None. IMPRESSION: No acute findings identified.
[2018-06-23 19:07] LABS: BASO # 0.1 K/uL (0.0-0.2); BASO % 0.9 % (0.0-2.0); EOS # 0.1 K/uL (0.0-0.7); EOS % 1.1 % (0.0-4.0); HEMOGLOBIN 13.8 g/dL (12.0-18.0); LYMPH # 1.4 K/uL (1.0-4.3); LYMPH % 17.6 % (20.0-40.0); MEAN CELL VOLUME 89.8 fL (80.0-94.0); MEAN CORPUSCULAR HEMOGLOBIN 30.6 pg (27.0-31.0); MEAN PLATELET VOLUME 8.6 fL (7.2-11.7); MONO # 0.7 K/uL (0.0-0.8); MONO % 8.9 % (0.0-10.0); NEUT # 5.6 K/uL (1.8-7.0); NEUT % 71.5 % (50.0-75.0); NRBC % 0.1 % (0.0-2.0); RBC 4.52 Mil/uL (4.40-5.90); RED CELL DISTRIBUTION WIDTH 13.2 % (11.5-14.5); WHITE BLOOD COUNT 7.8 K/uL (4.8-10.8)
[2018-06-23] MEDS ORDERED: Albuterol-Ipratrop 3 mg / 0.5 (3 ml) UD ONE (19:16)
[2018-06-23 19:21] LABS: ALB/GLOB RATIO 1.4 (1.0-2.1); ALBUMIN 4.3 g/dL (3.5-5.0); ALT/SGPT 27 U/L (21-72); AST/SGOT 25 U/L (17-59); BLOOD UREA NITROGEN 15 mg/dL (9-20); CALCIUM 9.3 mg/dl (8.6-10.4); GFR NON-AFRICAN AMERICAN > 60
[2018-06-24] MEDS ORDERED: Albuterol HFA 90 mcg/actuation (8 g) IH PRN (05:48)
[2018-06-24 07:12] LABS: HDL CHOLESTEROL 29 mg/dL (30-70)
[2018-06-24 07:22] LABS: LDL CHOLESTEROL 185 mg/dL (0-129)
[2018-06-24 07:29] LABS: CK-MB < 0.22 ng/mL (0.0-3.38)
--- NOTE | 2018-06-24 08:09 | CP.PCM.CON ---
History of Present Illness - History of Present Illness History of Present Illness: Patient seen/examined. well known to me. full consutl to follow. Patient has a remote history of CAD HTN DM who presents with chest shulder and back pain. The patient has chronic pain syndrome, and has had multiple admissions for chest pain. Previous cardaic cath showed patent stent and small vessel CAD. recommend cardiac troponin x 3. If troponin negative can d/c home from cardiac standpoint and will schedule outpatient cardiac testing. Past Patient History - Infectious Disease Hx of Infectious Diseases: None - Past Medical History & Family History Past Medical History?: Yes - Past Social History Smoking Status: Light Smoker < 10 Cigarettes Daily - CARDIAC Hx Cardiac Disorders: Yes Hx Congestive Heart Failure: Yes Hx Hypercholesterolemia: Yes Hx Hypertension: Yes - PULMONARY Hx Respiratory Disorders: Yes Hx Asthma: Yes Hx Chronic Obstructive Pulmonary Disease (COPD): Yes - NEUROLOGICAL Hx Neurological Disorder: No - HEENT Hx HEENT Problems: Yes Other/Comment: wears glasses - RENAL Hx Chronic Kidney Disease: No - ENDOCRINE/METABOLIC Hx Endocrine Disorders: No - HEMATOLOGICAL/ONCOLOGICAL Hx Blood Disorders: No - INTEGUMENTARY Hx Dermatological Problems: No - MUSCULOSKELETAL/RHEUMATOLOGICAL Hx Musculoskeletal Disorders: No Hx Falls: No - GASTROINTESTINAL Hx Gastrointestinal Disorders: Yes Hx Gastroesophageal Reflux: Yes - GENITOURINARY/GYNECOLOGICAL Hx Genitourinary Disorders: No - PSYCHIATRIC Hx Psychophysiologic Disorder: No Hx Anxiety: Yes Hx Depression: Yes Hx Substance Use: No - SURGICAL HISTORY Hx Surgeries: Yes Hx Coronary Stent: Yes (X2) - ANESTHESIA Hx Anesthesia: Yes Hx Anesthesia Reactions: No Hx Malignant Hyperthermia: No Meds Allergies/Adverse Reactions: Allergies Allergy/AdvReac Type Severity Reaction Status Date / Time No Known Allergies Allergy Verified 09/23/16 09:56 - Medications Medications: Current Medications Albuterol (Ventolin Hfa 90 Mcg/Actuation (8 G)) 2 puff IH QID PRN PRN Reason: Shortness of Breath Aspirin (Ecotrin) 81 mg PO DAILY [facility] Cilostazol (Pletal) 50 mg PO DAILY [facility] Clopidogrel Bisulfate (Plavix) 75 mg PO DAILY [facility] Fluticasone/Vilanterol (Breo Ellipta 100-25 Mcg Inh) 1 puff INH RBID [facility] Gabapentin (Neurontin) 600 mg PO HS [facility] Ibuprofen (Motrin Tab) 800 mg PO BID PRN PRN Reason: Pain, moderate (4-7) Last Admin: 06/24/18 06:45 Dose: 800 mg Influenza Virus Vaccine (Fluzone Quad [id number]) 60 mcg IM .ONCE ONE Stop: 06/25/18 14:01 Isosorbide Mononitrate (Imdur Er) 30 mg PO DAILY [facility] Metoprolol Tartrate (Lopressor) 85 mg PO DAILY [facility] Montelukast Sodium (Singulair) 10 mg PO HS [facility] Ranolazine (Ranexa) 1,000 mg PO BID [facility] Rosuvastatin Calcium (Crestor) 5 mg PO HS [facility] Results - Vital Signs Recent Vital Signs: Last Vital Signs Temp 98.2 F 06/24/18 07:00 Pulse 54 L 06/24/18 07:00 Resp 18 06/24/18 07:00 BP 110/70 06/24/18 07:00 Pulse Ox 97 06/24/18 07:00 - Labs Result Diagrams: 06/23/18 19:04 06/23/18 19:04 Labs: Laboratory Results - last 24 hr 06/23/18 06/23/18 06/24/18 19:04 19:04 06:28 WBC 7.8 RBC 4.52 Hgb 13.8 Hct 40.6 MCV 89.8 MCH 30.6 MCHC 34.0 RDW 13.2 Plt Count 284 MPV 8.6 Neut % (Auto) 71.5 Lymph % (Auto) 17.6 L [place] % (Auto) 8.9 Eos % (Auto) 1.1 Baso % (Auto) 0.9 Neut # (Auto) 5.6 Lymph # (Auto) 1.4 [place] # (Auto) 0.7 Eos # (Auto) 0.1 Baso # (Auto) 0.1 Sodium 138 Potassium 4.2 Chloride 102 Carbon Dioxide 25 Anion Gap 15 BUN 15 Creatinine 1.1 Est GFR ( Amer) > 60 Est GFR (Non-Af Amer) > 60 Random Glucose 113 H Calcium 9.3 Magnesium 2.2 Total Bilirubin 0.6 AST 25 ALT 27 Alkaline Phosphatase 61 Total Creatine Kinase 59 CK-MB (Mass) < 0.22 Troponin I < 0.0120 < 0.0120 Total Protein 7.4 Albumin 4.3 Globulin 3.1 Albumin/Globulin Ratio 1.4 Triglycerides 233 H D Cholesterol 274 H LDL Cholesterol Direct 185 H HDL Cholesterol 29 L
[2018-06-24] MEDS: Ranolazine 500 mg Extended Release Tablets PO SCH ×2 (10:37→17:17)
[2018-06-24] MEDS: Enoxaparin 40 mg Syringe SC SCH (10:38)
[2018-06-24] MEDS: Cilostazol 50 mg Tab UD PO SCH (10:45)
[2018-06-24 14:30] LABS: CK-MB < 0.22 ng/mL (0.0-3.38)
[2018-06-24 15:06] LABS: URINE BILIRUBIN NEGATIVE (NEGATIVE); URINE BLOOD NEGATIVE (NEGATIVE); URINE CLARITY Clear (Clear); URINE COLOR Yellow (YELLOW); URINE GLUCOSE (UA) NORMAL (Normal); URINE LEUKOCYTE ESTERASE NEG Leu/uL (Negative); URINE PROTEIN NEGATIVE (NEGATIVE); URINE UROBILINOGEN NORMAL mg/dL (0.2-1.0)
--- NOTE | 2018-06-24 15:22 | CP.PCM.HP ---
History of Present Illness - History of Present Illness History of Present Illness: pt gets sob pain chest frotal radiati ng to the back Present on Admission - Present on Admission Any Indicators Present on Admission: No Review of Systems - Review of Systems Systems not reviewed;Unavailable: Acuity of Condition - Constitutional Constitutional: Fatigue - EENT Eyes: As Per HPI Ears: As Per HPI Nose/Mouth/Throat: As Per HPI - Cardiovascular Cardiovascular: Chest Pain, Chest Pain at Rest, Dyspnea - Respiratory Respiratory: Dyspnea, Dyspnea on Exertion - Gastrointestinal Gastrointestinal: Nausea - Genitourinary Genitourinary: As Per HPI - Reproductive: Male Reproductive:Male: As Per HPI - Musculoskeletal Musculoskeletal: As Per HPI, Back Pain, Neck Pain, Numbness - Integumentary Integumentary: As Per HPI - Neurological Neurological: As Per HPI - Psychiatric Psychiatric: As Per HPI - Endocrine Endocrine: As Per HPI - Hematologic/Lymphatic Hematologic: As Per HPI Past Patient History - Infectious Disease Hx of Infectious Diseases: None - Past Medical History & Family History Past Medical History?: Yes - Past Social History Smoking Status: Light Smoker < 10 Cigarettes Daily - CARDIAC Hx Cardiac Disorders: Yes Hx Congestive Heart Failure: Yes Hx Hypercholesterolemia: Yes Hx Hypertension: Yes - PULMONARY Hx Respiratory Disorders: Yes Hx Asthma: Yes Hx Chronic Obstructive Pulmonary Disease (COPD): Yes - NEUROLOGICAL Hx Neurological Disorder: No - HEENT Hx HEENT Problems: Yes Other/Comment: wears glasses - RENAL Hx Chronic Kidney Disease: No - ENDOCRINE/METABOLIC Hx Endocrine Disorders: No - HEMATOLOGICAL/ONCOLOGICAL Hx Blood Disorders: No - INTEGUMENTARY Hx Dermatological Problems: No - MUSCULOSKELETAL/RHEUMATOLOGICAL Hx Musculoskeletal Disorders: No Hx Falls: No - GASTROINTESTINAL Hx Gastrointestinal Disorders: Yes Hx Gastroesophageal Reflux: Yes - GENITOURINARY/GYNECOLOGICAL Hx Genitourinary Disorders: No - PSYCHIATRIC Hx Psychophysiologic Disorder: No Hx Anxiety: Yes Hx Depression: Yes Hx Substance Use: No - SURGICAL HISTORY Hx Surgeries: Yes Hx Coronary Stent: Yes (X2) - ANESTHESIA Hx Anesthesia: Yes Hx Anesthesia Reactions: No Hx Malignant Hyperthermia: No Meds Allergies/Adverse Reactions: Allergies Allergy/AdvReac Type Severity Reaction Status Date / Time No Known Allergies Allergy Verified 09/23/16 09:56 Physical Exam - Constitutional Appears: In Acute Distress - Eye Exam Eye Exam: Normal appearance Pupil Exam: NORMAL ACCOMODATION - ENT Exam ENT Exam: Normal Exam - Neck Exam Neck exam: Positive for: Tenderness - Respiratory Exam Respiratory Exam: Decreased Breath Sounds - Cardiovascular Exam Cardiovascular Exam: REGULAR RHYTHM - GI/Abdominal Exam GI & Abdominal Exam: Normal Bowel Sounds - Exam Exam: NORMAL INSPECTION - Extremities Exam Extremities exam: Positive for: normal inspection - Back Exam Back exam: NORMAL INSPECTION Results - Vital Signs Recent Vital Signs: Last Vital Signs Temp 97.5 F L 06/24/18 14:55 Pulse 75 06/24/18 14:55 Resp 20 06/24/18 14:55 BP 111/70 06/24/18 14:55 Pulse Ox 95 06/24/18 14:55 - Labs Result Diagrams: 06/23/18 19:04 06/23/18 19:04 Labs: Laboratory Results - last 24 hr 06/23/18 06/23/18 06/24/18 19:04 19:04 06:28 WBC 7.8 RBC 4.52 Hgb 13.8 Hct 40.6 MCV 89.8 MCH 30.6 MCHC 34.0 RDW 13.2 Plt Count 284 MPV 8.6 Neut % (Auto) 71.5 Lymph % (Auto) 17.6 L [place] % (Auto) 8.9 Eos % (Auto) 1.1 Baso % (Auto) 0.9 Neut # (Auto) 5.6 Lymph # (Auto) 1.4 [place] # (Auto) 0.7 Eos # (Auto) 0.1 Baso # (Auto) 0.1 Sodium 138 Potassium 4.2 Chloride 102 Carbon Dioxide 25 Anion Gap 15 BUN 15 Creatinine 1.1 Est GFR ( Amer) > 60 Est GFR (Non-Af Amer) > 60 Random Glucose 113 H Calcium 9.3 Magnesium 2.2 Total Bilirubin 0.6 AST 25 ALT 27 Alkaline Phosphatase 61 Total Creatine Kinase 59 CK-MB (Mass) < 0.22 Troponin I < 0.0120 < 0.0120 Total Protein 7.4 Albumin 4.3 Globulin 3.1 Albumin/Globulin Ratio 1.4 Triglycerides 233 H D Cholesterol 274 H LDL Cholesterol Direct 185 H HDL Cholesterol 29 L Urine Color Urine Clarity Urine pH Ur Specific [place] Urine Protein Urine Glucose (UA) Urine Ketones Urine Blood Urine Nitrate Urine Bilirubin Urine Urobilinogen Ur Leukocyte Esterase Urine RBC (Auto) 06/24/18 06/24/18 13:57 14:35 WBC RBC Hgb Hct MCV MCH MCHC RDW Plt Count MPV Neut % (Auto) Lymph % (Auto) [place] % (Auto) Eos % (Auto) Baso % (Auto) Neut # (Auto) Lymph # (Auto) [place] # (Auto) Eos # (Auto) Baso # (Auto) Sodium Potassium Chloride Carbon Dioxide Anion Gap BUN Creatinine Est GFR ( Amer) Est GFR (Non-Af Amer) Random Glucose Calcium Magnesium Total Bilirubin AST ALT Alkaline Phosphatase Total Creatine Kinase 58 CK-MB (Mass) < 0.22 Troponin I < 0.0120 Total Protein Albumin Globulin Albumin/Globulin Ratio Triglycerides Cholesterol LDL Cholesterol Direct HDL Cholesterol Urine Color Yellow Urine Clarity Clear Urine pH 6.0 Ur Specific [place] 1.010 Urine Protein Negative Urine Glucose (UA) Normal Urine Ketones Negative Urine Blood Negative Urine Nitrate Negative Urine Bilirubin Negative Urine Urobilinogen Normal Ur Leukocyte Esterase Neg Urine RBC (Auto) 1 Assessment & Plan - Assessment and Plan (Free Text) Assessment: ac chest pain sob copd neck pain radiculopathy Plan: neuro consult and pulmonary consult - Date & Time Date: 06/24/18 Time: 15:25
[2018-06-24] MEDS: Albuterol Sulfate 2 mg/5 ml Cup PO SCH ×2 (17:17→21:08)
[2018-06-24 20:11] LABS: CK-MB < 0.22 ng/mL (0.0-3.38)
[2018-06-24] MEDS: Fluticasone-Vilanterol 100/25mcg Diskus INH SCH (22:38)
[2018-06-24] MEDS: Albuterol-Ipratrop 3 mg / 0.5 (3 ml) UD INH SCH (22:40)
[2018-06-25] MEDS: Albuterol-Ipratrop 3 mg / 0.5 (3 ml) UD INH SCH ×4 (02:05→19:42)
--- NOTE | 2018-06-25 07:20 | CP.PCM.CON ---
History of Present Illness - History of Present Illness History of Present Illness: CONSULT DICTATED LEFT HEMIPARESIS - OLD Vs NEW CENTRAL PAIN SYNDROME LEFT CERVICAL DISC DISEASE - OLD STROKE PROPHYLAXIS CONTROL LIPIDS MRI/CAROTID QUIT SMOKING Past Patient History - Infectious Disease Hx of Infectious Diseases: None - Past Medical History & Family History Past Medical History?: Yes - Past Social History Smoking Status: Light Smoker < 10 Cigarettes Daily - CARDIAC Hx Congestive Heart Failure: Yes Hx Hypercholesterolemia: Yes Hx Hypertension: Yes - PULMONARY Hx Asthma: Yes Hx Chronic Obstructive Pulmonary Disease (COPD): Yes - NEUROLOGICAL Hx Neurological Disorder: No - HEENT Hx HEENT Problems: Yes Other/Comment: wears glasses - RENAL Hx Chronic Kidney Disease: No - ENDOCRINE/METABOLIC Hx Endocrine Disorders: No - HEMATOLOGICAL/ONCOLOGICAL Hx Blood Disorders: No - INTEGUMENTARY Hx Dermatological Problems: No - MUSCULOSKELETAL/RHEUMATOLOGICAL Hx Musculoskeletal Disorders: No Hx Falls: No - GASTROINTESTINAL Hx Gastrointestinal Disorders: Yes Hx Gastroesophageal Reflux: Yes - GENITOURINARY/GYNECOLOGICAL Hx Genitourinary Disorders: No - PSYCHIATRIC Hx Anxiety: Yes Hx Depression: Yes Hx Substance Use: No - SURGICAL HISTORY Hx Coronary Stent: Yes (X2) - ANESTHESIA Hx Anesthesia: Yes Hx Anesthesia Reactions: No Hx Malignant Hyperthermia: No Meds Allergies/Adverse Reactions: Allergies Allergy/AdvReac Type Severity Reaction Status Date / Time No Known Allergies Allergy Verified 09/23/16 09:56 - Medications Medications: Current Medications Albuterol (Ventolin Hfa 90 Mcg/Actuation (8 G)) 2 puff IH QID PRN PRN Reason: Shortness of Breath Albuterol Sulfate (Albuterol Sulfate) 2 mg PO QID [facility] Last Admin: 06/24/18 21:08 Dose: 2 mg Albuterol/Ipratropium (Duoneb 3 Mg/0.5 Mg (3 Ml) Ud) 3 ml INH RQ6 [facility] Last Admin: 06/25/18 02:05 Dose: Not Given Aspirin (Ecotrin) 81 mg PO DAILY [facility] Last Admin: 06/24/18 10:37 Dose: 81 mg Cilostazol (Pletal) 50 mg PO DAILY [facility] Last Admin: 06/24/18 10:45 Dose: 50 mg Clopidogrel Bisulfate (Plavix) 75 mg PO DAILY [facility] Last Admin: 06/24/18 10:37 Dose: 75 mg Enoxaparin Sodium (Lovenox) 40 mg SC DAILY [facility] Last Admin: 06/24/18 10:38 Dose: 40 mg Fluticasone/Vilanterol (Breo Ellipta 100-25 Mcg Inh) 1 puff INH RBID [facility] Last Admin: 06/24/18 22:38 Dose: Not Given Gabapentin (Neurontin) 600 mg PO HS [facility] Last Admin: 06/24/18 21:07 Dose: 600 mg Ibuprofen (Motrin Tab) 800 mg PO BID PRN PRN Reason: Pain, moderate (4-7) Last Admin: 06/24/18 06:45 Dose: 800 mg Influenza Virus Vaccine (Fluzone Quad [id number]) 60 mcg IM .ONCE ONE Stop: 06/25/18 14:01 Isosorbide Mononitrate (Imdur Er) 30 mg PO DAILY [facility] Last Admin: 06/24/18 10:37 Dose: 30 mg Metoprolol Tartrate (Lopressor) 25 mg PO DAILY [facility] Last Admin: 06/24/18 10:38 Dose: Not Given Montelukast Sodium (Singulair) 10 mg PO [facility] Last Admin: 06/24/18 21:07 Dose: 10 mg Ranolazine (Ranexa) 1,000 mg PO BID [facility] Last Admin: 06/24/18 17:17 Dose: 1,000 mg Rosuvastatin Calcium (Crestor) 5 mg PO [facility] Last Admin: 06/24/18 21:07 Dose: 5 mg Results - Vital Signs Recent Vital Signs: Last Vital Signs Temp 98.1 F 06/24/18 23:00 Pulse 63 06/25/18 04:00 Resp 20 06/24/18 23:00 BP 111/62 06/24/18 23:00 Pulse Ox 97 06/25/18 03:14 - Labs Result Diagrams: 06/23/18 19:04 06/23/18 19:04 Labs: Laboratory Results - last 24 hr 06/24/18 06/24/18 06/24/18 06:28 13:57 14:35 Total Creatine Kinase 58 CK-MB (Mass) < 0.22 < 0.22 Troponin I < 0.0120 < 0.0120 LDL Cholesterol Direct 185 H Urine Color Yellow Urine Clarity Clear Urine pH 6.0 Ur Specific [place] 1.010 Urine Protein Negative Urine Glucose (UA) Normal Urine Ketones Negative Urine Blood Negative Urine Nitrate Negative Urine Bilirubin Negative Urine Urobilinogen Normal Ur Leukocyte Esterase Neg Urine RBC (Auto) 1 06/24/18 19:28 Total Creatine Kinase 55 CK-MB (Mass) < 0.22 Troponin I < 0.0120 LDL Cholesterol Direct Urine Color Urine Clarity Urine pH Ur Specific [place] Urine Protein Urine Glucose (UA) Urine Ketones Urine Blood Urine Nitrate Urine Bilirubin Urine Urobilinogen Ur Leukocyte Esterase Urine RBC (Auto)
[2018-06-25] MEDS: Fluticasone-Vilanterol 100/25mcg Diskus INH SCH (08:25)
--- NOTE | 2018-06-25 10:25 | CT ---
Date of service: 06/25/2018 PROCEDURE: CT HEAD WITHOUT CONTRAST. HISTORY: Right subcortical stroke? Thalamic stroke? COMPARISON: Comparison made with prior CT scan and MRI brain both dated 08/30/2017.. TECHNIQUE: Axial computed tomography images were obtained through the head/brain without intravenous contrast. Radiation dose: Total exam DLP = 1081.11 mGy-cm. This CT exam was performed using one or more of the following dose reduction techniques: Automated exposure control, adjustment of the mA and/or kV according to patient size, and/or use of iterative reconstruction technique. FINDINGS: HEMORRHAGE: No intracranial hemorrhage. BRAIN: No evidence of large acute infarct. Note that the possibility of a small hyperacute infarct not excluded. No obvious parenchymal nor extra-axial mass or collection identified on this noncontrast exam.. Mild generalized volume loss. VENTRICLES: No obstructive hydrocephalus. CALVARIUM: Unremarkable. PARANASAL SINUSES: Unremarkable as visualized. No significant inflammatory changes. MASTOID AIR CELLS: Unremarkable as visualized. No inflammatory changes. OTHER FINDINGS: None. IMPRESSION: No acute intracranial hemorrhage.
[2018-06-25] MEDS: Albuterol Sulfate 2 mg/5 ml Cup PO SCH ×3 (10:27→17:52)
[2018-06-25] MEDS: Enoxaparin 40 mg Syringe SC SCH (10:27)
[2018-06-25] MEDS: Ranolazine 500 mg Extended Release Tablets PO SCH ×2 (10:27→17:52)
[2018-06-25] MEDS: Cilostazol 50 mg Tab UD PO SCH (10:27)
--- NOTE | 2018-06-25 13:05 | CP.PCM.PN ---
Subjective - Date & Time of Evaluation Date of Evaluation: 06/25/18 Time of Evaluation: 13:02 - Subjective Subjective: Complains of chest pain and SOB, walking steps. Objective - Vital Signs/Intake and Output Vital Signs (last 24 hours): Temp Pulse Resp BP Pulse Ox 98.3 F 69 20 122/81 100 06/25/18 07:00 06/25/18 12:00 06/25/18 07:00 06/25/18 10:26 06/25/18 07:00 - Medications Medications: Current Medications Albuterol (Ventolin Hfa 90 Mcg/Actuation (8 G)) 2 puff IH QID PRN PRN Reason: Shortness of Breath Albuterol Sulfate (Albuterol Sulfate) 2 mg PO QID [facility] Last Admin: 06/25/18 10:27 Dose: 2 mg Albuterol/Ipratropium (Duoneb 3 Mg/0.5 Mg (3 Ml) Ud) 3 ml INH RQ6 [facility] Last Admin: 06/25/18 07:22 Dose: 3 ml Aspirin (Ecotrin) 81 mg PO DAILY [facility] Last Admin: 06/25/18 10:26 Dose: 81 mg Cilostazol (Pletal) 50 mg PO DAILY [facility] Last Admin: 06/25/18 10:27 Dose: 50 mg Clopidogrel Bisulfate (Plavix) 75 mg PO DAILY [facility] Last Admin: 06/25/18 10:26 Dose: 75 mg Enoxaparin Sodium (Lovenox) 40 mg SC DAILY [facility] Last Admin: 06/25/18 10:27 Dose: 40 mg Fluticasone/Vilanterol (Breo Ellipta 100-25 Mcg Inh) 1 puff INH RBID [facility] Last Admin: 06/24/18 22:38 Dose: Not Given Gabapentin (Neurontin) 600 mg PO HS [facility] Last Admin: 06/24/18 21:07 Dose: 600 mg Ibuprofen (Motrin Tab) 800 mg PO BID PRN PRN Reason: Pain, moderate (4-7) Last Admin: 06/24/18 06:45 Dose: 800 mg Influenza Virus Vaccine (Fluzone Quad [id number]) 60 mcg IM .ONCE ONE Stop: 06/25/18 14:01 Isosorbide Mononitrate (Imdur Er) 30 mg PO DAILY [facility] Last Admin: 06/25/18 10:26 Dose: 30 mg Metoprolol Tartrate (Lopressor) 25 mg PO DAILY [facility] Last Admin: 06/25/18 10:26 Dose: 25 mg Montelukast Sodium (Singulair) 10 mg PO [facility] Last Admin: 06/24/18 21:07 Dose: 10 mg Ranolazine (Ranexa) 1,000 mg PO BID [facility] Last Admin: 06/25/18 10:27 Dose: 1,000 mg Rosuvastatin Calcium (Crestor) 5 mg PO [facility] Last Admin: 06/24/18 21:07 Dose: 5 mg - Labs Labs: 06/23/18 19:04 06/23/18 19:04 - Head Exam Head Exam: NORMOCEPHALIC - Respiratory Exam Respiratory Exam: Wheezes, NORMAL BREATHING PATTERN - Cardiovascular Exam Cardiovascular Exam: REGULAR RHYTHM - Extremities Exam Extremities Exam: Normal Inspection - Neurological Exam Neurological Exam: Alert, Oriented x3 Assessment and Plan (1) Chest pain Assessment & Plan: Typical with multiple risk factors for exacerbation of CAD. Given his presentation, risk factor for the progression of disease will consider for cardiac cath. If patient agrees will schedule for AM. Status: Acute (2) Acute coronary syndrome Assessment & Plan: Monitor on telemetry. Status: Acute (3) CAD (coronary artery disease) Assessment & Plan: Continue DAPT and nitrates. Status: Acute
[2018-06-25] MEDS ORDERED: Influenza Vaccine 60 MCG/0.5 ML SYR (3 yr & up) IM ONE (14:00)
--- NOTE | 2018-06-25 17:01 | CP.PCM.PN ---
Subjective - Date & Time of Evaluation Date of Evaluation: 06/25/18 Time of Evaluation: 17:00 - Subjective Subjective: still has on and off chest pain breathing is beter Objective - Vital Signs/Intake and Output Vital Signs (last 24 hours): Temp Pulse Resp BP Pulse Ox 97.6 F 72 20 125/69 96 06/25/18 15:00 06/25/18 15:00 06/25/18 15:00 06/25/18 15:00 06/25/18 15:00 - Medications Medications: Current Medications Albuterol (Ventolin Hfa 90 Mcg/Actuation (8 G)) 2 puff IH QID PRN PRN Reason: Shortness of Breath Albuterol Sulfate (Albuterol Sulfate) 2 mg PO QID [facility] Last Admin: 06/25/18 13:07 Dose: 2 mg Albuterol/Ipratropium (Duoneb 3 Mg/0.5 Mg (3 Ml) Ud) 3 ml INH RQ6 [facility] Last Admin: 06/25/18 13:27 Dose: 3 ml Aspirin (Ecotrin) 81 mg PO DAILY [facility] Last Admin: 06/25/18 10:26 Dose: 81 mg Cilostazol (Pletal) 50 mg PO DAILY [facility] Last Admin: 06/25/18 10:27 Dose: 50 mg Clopidogrel Bisulfate (Plavix) 75 mg PO DAILY [facility] Last Admin: 06/25/18 10:26 Dose: 75 mg Enoxaparin Sodium (Lovenox) 40 mg SC DAILY [facility] Last Admin: 06/25/18 10:27 Dose: 40 mg Fluticasone/Vilanterol (Breo Ellipta 100-25 Mcg Inh) 1 puff INH RBID [facility] Last Admin: 06/25/18 08:25 Dose: Not Given Gabapentin (Neurontin) 600 mg PO HS [facility] Last Admin: 06/24/18 21:07 Dose: 600 mg Ibuprofen (Motrin Tab) 800 mg PO BID PRN PRN Reason: Pain, moderate (4-7) Last Admin: 06/24/18 06:45 Dose: 800 mg Isosorbide Mononitrate (Imdur Er) 30 mg PO DAILY [facility] Last Admin: 06/25/18 10:26 Dose: 30 mg Metoprolol Tartrate (Lopressor) 25 mg PO DAILY [facility] Last Admin: 06/25/18 10:26 Dose: 25 mg Montelukast Sodium (Singulair) 10 mg PO [facility] Last Admin: 06/24/18 21:07 Dose: 10 mg Ranolazine (Ranexa) 1,000 mg PO BID [facility] Last Admin: 06/25/18 10:27 Dose: 1,000 mg Rosuvastatin Calcium (Crestor) 5 mg PO [facility] Last Admin: 06/24/18 21:07 Dose: 5 mg - Labs Labs: 06/23/18 19:04 06/23/18 19:04 - Constitutional Appears: Non-toxic - Head Exam Head Exam: NORMAL INSPECTION - Eye Exam Eye Exam: Normal appearance Pupil Exam: NORMAL ACCOMODATION - ENT Exam ENT Exam: Mucous Membranes Moist - Neck Exam Neck Exam: Full ROM - Respiratory Exam Respiratory Exam: NORMAL BREATHING PATTERN - Cardiovascular Exam Cardiovascular Exam: REGULAR RHYTHM - GI/Abdominal Exam GI & Abdominal Exam: Normal Bowel Sounds - Exam Exam: NORMAL INSPECTION - Back Exam Back Exam: NORMAL INSPECTION - Neurological Exam Neurological Exam: Alert, Oriented x3 - Psychiatric Exam Psychiatric exam: Normal Affect - Skin Skin Exam: Normal Color Assessment and Plan - Assessment and Plan (Free Text) Assessment: chest pain ashtma Plan: c cath in am
--- NOTE | 2018-06-25 21:39 | CARD ---
APPROVED REPORT Date of service: 06/24/2018 EKG Measurement Heart [id number] <Conclusion> Normal sinus rhythm Low voltage QRS Cannot rule out Anterior infarct, age undetermined Abnormal ECG
--- NOTE | 2018-06-25 21:43 | CARD ---
APPROVED REPORT Date of service: 06/24/2018 EKG Measurement Heart [id number] <Conclusion> Normal sinus rhythm Left axis deviation Low voltage QRS Possible Anterolateral infarct, age undetermined Abnormal ECG
--- NOTE | 2018-06-25 21:53 | CARD ---
APPROVED REPORT Date of service: 06/24/2018 EKG Measurement Heart [id number] <Conclusion> Sinus bradycardia Low voltage QRS Borderline ECG
[2018-06-26] MEDS: Albuterol-Ipratrop 3 mg / 0.5 (3 ml) UD INH SCH ×4 (01:12→19:17)
--- NOTE | 2018-06-26 06:44 | CON ---
DATE: 06/25/2018 ATTENDING PHYSICIAN: Sheryl Browne MD. LOCATION: Room number 650, bed A. REASON FOR CONSULTATION Left arm pain. CHIEF COMPLAINT: The patient was brought into [facility] with a history of progressive left shoulder pain and back pain. From a neurological point of view, I was called into evaluate him for further management. HISTORY OF PRESENT ILLNESS: The patient is a 47-year-old right-handed [place] male presenting with history of left shoulder and arm pain since 2006 ever since he had a left rotator cuff injury. This pain associating with left arm weakness. He also claims that left leg is also weak since he had a heart attack in 2013. These are all episodic in nature. Associating with some weakness as well as numbness on his left side. No history of headache. No history of visual or bulbar dysfunction. PAST MEDICAL HISTORY: History of coronary artery disease, dyslipidemia, peripheral vascular disease. PERSONAL HISTORY: Denies alcohol use. However, he smokes less than 10 cigarettes per day. ALLERGIES: NO KNOWN ALLERGIES. REVIEW OF SYSTEMS A 12-point system being reviewed. From neuro, left arm numbness and weakness. PHYSICAL EXAMINATION: VITAL SIGNS: Blood pressure 111/62, mean artery pressure of 78, respiratory rate 18, pulse rate 63 and regular, temperature 98.1 degrees Fahrenheit. NECK: Supple. No carotid bruits. HEART: Sounds regular. CHEST: Fair air entry. EXTREMITIES: No edema in legs. Left leg seems to be externally rotated compared with the right side. NEUROLOGIC EXAMINATION: Mental status examination, he is awake, alert and oriented to person, place and time. Speech is clear. Naming, repetition, fluency, comprehension all within normal. Cranial nerve examination, visual field intact. Pupils reactive to light. Extraocular movement normal. No nystagmus. No facial sensory deficit. No facial asymmetry. Hearing is normal. Tongue is midline. Good gag. Motor examination, outstretched hand with eyes closed, no drift noted. No sensory tremor. Tone is normal in all four extremities. Deep tendon reflexes, biceps and brachioradialis 1+, left triceps is absent, right side was 1+, both knees are 2+, right ankle 1+, left ankle 2+. Plantars are upgoing on his left side. Sensory examination: No cortical sensory loss. No sensory deficit. Coordination: [id number] test is intact. Gait is normal. CONCLUSION: The patient and been presenting with possible right subcortical dysfunction, probably thalamic dysfunction from his old stroke versus new stroke presenting with central pain syndrome. This is all probably secondary to his small vessel disease related to his risk factors including hypertension, dyslipidemia, and smoking. The patient also presenting with cervical disk disease. The MRI of his cervical disk disease, being reviewed which was done on 09/20/2016 consistent with mild disk bulges at C4-C6 region with mild stenosis. That cervical disk problem does not explain his arm and left leg pain. Workup, WBC 7.8, hemoglobin 13.8, hematocrit 40.6, platelets 284. Sodium 138, potassium 4.2, chloride 102, bicarbonate 25 creatinine 1.1, GFR more than 60, triglycerides 233, cholesterol 274, LDL 185, HDL 29. RECOMMENDATIONS: 1. MRI of the brain to rule out new versus old right subcortical stroke. 2. Continue stroke prophylaxis as he has been getting. 3. Uncontrolled dyslipidemia, statin doses should be increased and antitriglyceride medicine should be introduced. 4. Abstain from smoking. 6. Carotid Doppler also to be done to rule out any focal stenosis. 7. The patient advised to have electrodiagnostic studies which include electromyography and nerve conduction study to assess his peripheral nerve disorder of cervical disk disease. The patient's condition has been well discussed. The patient will be followed while he is in the hospital. Chris Sutherland MD [id number]
[2018-06-26 07:01] LABS: INR 1.2
[2018-06-26] MEDS: Fluticasone-Vilanterol 100/25mcg Diskus INH SCH ×2 (07:20→19:17)
[2018-06-26] MEDS: Cilostazol 50 mg Tab UD PO SCH (09:24)
[2018-06-26] MEDS: Ranolazine 500 mg Extended Release Tablets PO SCH ×2 (09:24→17:22)
[2018-06-26] MEDS: Albuterol Sulfate 2 mg/5 ml Cup PO SCH (09:25)
[2018-06-26] MEDS: Enoxaparin 40 mg Syringe SC SCH (09:32)
--- NOTE | 2018-06-26 10:36 | VASCLAB ---
Date of service: 06/25/2018 PROCEDURE: Carotid Duplex Exam. HISTORY: assess stenosis COMPARISON: None available. TECHNIQUE: Grayscale and duplex Doppler evaluation of the cervical carotid and vertebral arteries were performed. The common carotid, carotid bifurcations and cervical Internal Carotid Artery (ICA) and proximal External Carotid Artery (ECA) were evaluated. The vertebral arteries were evaluated for gross patency and flow direction. Report prepared by DIANELYS Marr FINDINGS: RIGHT CAROTID ARTERIES: 1. Common Carotid Artery: No significant focal plaque formation of the right common carotid artery. Maximum Peak Systolic velocity: 86 cm/sec: End-diastolic velocity 22 cm/sec. 2. Carotid Bifurcation: No significant focal plaque formation. Maximum Peak Systolic velocity: 53 cm/sec: End-diastolic velocity 16 cm/sec. 3. Internal Carotid Artery: Significant focal plaque formation. 3.1. Proximal Segment: Peak systolic velocity 58 cm/sec: End-diastolic velocity 25 cm/sec - % stenosis 0-15% 3.2. Middle Segment: Peak systolic velocity 62 cm/sec: End-diastolic velocity 28 cm/sec - % stenosis 0-15% 3.3. Distal Segment: Peak systolic velocity 68 cm/sec: End-diastolic velocity 33 cm/sec - % stenosis 0-15% 4. External Carotid Artery: No significant focal plaque formation. Peak systolic velocity 78 cm/sec 5. ICA/CCA Ratio: 1.0 LEFT CAROTID ARTERIES: 1. Common Carotid Artery: No significant focal plaque formation of the left common carotid artery. Maximum Peak Systolic velocity: 104 cm/sec: End-diastolic velocity 28 cm/sec. 2. Carotid Bifurcation: No significant focal plaque formation. Maximum Peak Systolic velocity: 70 cm/sec: End-diastolic velocity 19 cm/sec. 3. Internal Carotid Artery: No significant focal plaque formation. 3.1. Proximal Segment: Peak systolic velocity 60 cm/sec: End-diastolic velocity 25 cm/sec - % stenosis 0-15% 3.2. Middle Segment: Peak systolic velocity 54 cm/sec: End-diastolic velocity 24 cm/sec - % stenosis 0-15% 3.3. Distal Segment: Peak systolic velocity 52 cm/sec: End-diastolic velocity 33 cm/sec - % stenosis 0-15% 4. External Carotid Artery: No significant focal plaque formation. Peak systolic velocity 131 cm/sec 5. ICA/CCA Ratio: 0.9 VERTEBRAL ARTERIES: 1. Right Vertebral Artery: The right vertebral artery flow direction is antegrade. 2. Left Vertebral Artery: The left vertebral artery flow direction is antegrade. OTHER FINDINGS: 1. Right Brachial Blood pressure: 120/70 mmHg. 2. Left Brachial Blood pressure: 120/80 mmHg. 3. Limited images of the thyroid gland demonstrates a heterogeneous nodule on the left. IMPRESSION: RIGHT: Duplex scan does not suggest hemodynamically significant stenosis of the right extracranial carotid arteries. LEFT: Duplex scan does not suggest hemodynamically significant stenosis of the left extracranial carotid arteries. Dedicated thyroid ultrasound recommended to evaluate heterogeneous nodule in the left lobe.
--- NOTE | 2018-06-26 12:49 | CP.PCM.PN ---
Subjective - Date & Time of Evaluation Date of Evaluation: 06/26/18 Time of Evaluation: 12:47 - Subjective Subjective: pt will have cardiac cath today Objective - Vital Signs/Intake and Output Vital Signs (last 24 hours): Temp Pulse Resp BP Pulse Ox 97.9 F 94 H 20 129/80 99 06/26/18 08:05 06/26/18 11:30 06/26/18 08:05 06/26/18 09:25 06/26/18 08:05 - Medications Medications: Current Medications Albuterol (Ventolin Hfa 90 Mcg/Actuation (8 G)) 2 puff IH QID PRN PRN Reason: Shortness of Breath Albuterol Sulfate (Albuterol Sulfate) 2 mg PO QID [facility] Last Admin: 06/26/18 09:25 Dose: 2 mg Albuterol/Ipratropium (Duoneb 3 Mg/0.5 Mg (3 Ml) Ud) 3 ml INH RQ6 [facility] Last Admin: 06/26/18 07:20 Dose: 3 ml Aspirin (Ecotrin) 81 mg PO DAILY [facility] Last Admin: 06/26/18 09:24 Dose: 81 mg Cilostazol (Pletal) 50 mg PO DAILY [facility] Last Admin: 06/26/18 09:24 Dose: 50 mg Clopidogrel Bisulfate (Plavix) 75 mg PO DAILY [facility] Last Admin: 06/26/18 09:24 Dose: 75 mg Enoxaparin Sodium (Lovenox) 40 mg SC DAILY [facility] Last Admin: 06/26/18 09:32 Dose: Not Given Famotidine (Pepcid) 40 mg PO DAILY [facility] Last Admin: 06/26/18 12:07 Dose: 40 mg Fenofibrate (Tricor) 145 mg PO QPM [facility] Fluticasone/Vilanterol (Breo Ellipta 100-25 Mcg Inh) 1 puff INH RBID [facility] Last Admin: 06/26/18 07:20 Dose: Not Given Gabapentin (Neurontin) 600 mg PO HS [facility] Last Admin: 06/25/18 21:47 Dose: 600 mg Ibuprofen (Motrin Tab) 800 mg PO BID PRN PRN Reason: Pain, moderate (4-7) Last Admin: 06/24/18 06:45 Dose: 800 mg Isosorbide Mononitrate (Imdur Er) 30 mg PO DAILY [facility] Last Admin: 06/26/18 09:25 Dose: 30 mg Metoprolol Tartrate (Lopressor) 25 mg PO DAILY [facility] Last Admin: 06/26/18 09:25 Dose: 25 mg Montelukast Sodium (Singulair) [address] [facility] Last Admin: 06/25/18 21:47 Dose: 10 mg Ranolazine (Ranexa) 1,000 mg PO BID [facility] Last Admin: 06/26/18 09:24 Dose: 1,000 mg Rosuvastatin Calcium (Crestor) [address] [facility] - Labs Labs: 06/23/18 19:04 06/23/18 19:04 PT 13.0 SECONDS (9.7-12.2) H 06/26/18 06:34 INR 1.2 06/26/18 06:34 APTT 35 SECONDS (21-34) H 06/26/18 06:34 - Constitutional Appears: No Acute Distress - Head Exam Head Exam: NORMAL INSPECTION - Eye Exam Eye Exam: Normal appearance Pupil Exam: NORMAL ACCOMODATION - ENT Exam ENT Exam: Mucous Membranes Moist - Neck Exam Neck Exam: Normal Inspection - Respiratory Exam Respiratory Exam: NORMAL BREATHING PATTERN - Cardiovascular Exam Cardiovascular Exam: REGULAR RHYTHM - GI/Abdominal Exam GI & Abdominal Exam: Normal Bowel Sounds - Exam Exam: NORMAL INSPECTION - Extremities Exam Extremities Exam: Full ROM - Back Exam Back Exam: NORMAL INSPECTION - Neurological Exam Neurological Exam: Alert, Oriented x3 - Psychiatric Exam Psychiatric exam: Normal Affect - Skin Skin Exam: Normal Color Assessment and Plan - Assessment and Plan (Free Text) Assessment: chest toby s/p angio cad copd Plan: c cath today
[2018-06-26] MEDS ORDERED: Midazolam 2 MG/2 ML VIAL ONE (15:03)
[2018-06-26] MEDS ORDERED: Iodixanol 320 MG/ML 100 ML BOTTLE IV ONE (15:03)
[2018-06-26] MEDS ORDERED: DiphenhydrAMINE 50 mg/ml Inj ONE (15:11)
[2018-06-26] MEDS ORDERED: Lidocaine 2% MPF (5 ml) Inj ONE (15:29)
--- NOTE | 2018-06-26 16:48 | CP.PCM.CON ---
<Simon Mckenzie - Last Filed: 06/26/18 17:44> History of Present Illness - History of Present Illness History of Present Illness: PGY1 Critical Care Consult Note for Dr. Maximino Murphy Reason for Consult: S/P Cath This is a 47-year-old male with PMH of CAD, COPD, HTN, HLD who is status-post stent placement, who presents to [facility] with a chief complaint of chest tightness x1 week. Patient states that it gets worse with coughing, and admits to associated shortness of breath. Patient received full dose of Aspirin and upon arrival to ED, patient was without pain and comfortable. While in the ED, chest x-ray was obtained, EKG was obtained, and cardiology was consulted (Dr. Aleman). Neurology (Dr. Sutherland) was consulted for left-sided hemiparesis (old vs new), and Pulmonology was consulted for shortness of breath with history of COPD. Per Dr. Culp's recommendations, serial LEILA panel was obtained and was negative. Lipid panel was obtained and was consistent with HLD. In light of the patient's on-going intermittent chest pain, further intervention was warranted; per Cardiology. Patient was afebrile and otherwise hemodynamically stable. Thus patient is s/p cath with Dr. Winter 06/26. Of note, patient complains of some chest pain, but otherwise denies shortness of breath, abdominal pain, blurry vision, dizziness, headache, nausea, vomiting and/or pruritus. Review of Systems - Review of Systems All systems: reviewed and no additional remarkable complaints except Past Patient History - Infectious Disease Hx of Infectious Diseases: None - Past Medical History & Family History Past Medical History?: Yes - Past Social History Smoking Status: Light Smoker < 10 Cigarettes Daily - CARDIAC Hx Congestive Heart Failure: Yes Hx Hypercholesterolemia: Yes Hx Hypertension: Yes - PULMONARY Hx Asthma: Yes Hx Chronic Obstructive Pulmonary Disease (COPD): Yes - NEUROLOGICAL Hx Neurological Disorder: No - HEENT Hx HEENT Problems: Yes Other/Comment: wears glasses - RENAL Hx Chronic Kidney Disease: No - ENDOCRINE/METABOLIC Hx Endocrine Disorders: No - HEMATOLOGICAL/ONCOLOGICAL Hx Blood Disorders: No - INTEGUMENTARY Hx Dermatological Problems: No - MUSCULOSKELETAL/RHEUMATOLOGICAL Hx Musculoskeletal Disorders: No Hx Falls: No - GASTROINTESTINAL Hx Gastrointestinal Disorders: Yes Hx Gastroesophageal Reflux: Yes - GENITOURINARY/GYNECOLOGICAL Hx Genitourinary Disorders: No - PSYCHIATRIC Hx Anxiety: Yes Hx Depression: Yes Hx Substance Use: No - SURGICAL HISTORY Hx Coronary Stent: Yes (X2) - ANESTHESIA Hx Anesthesia: Yes Hx Anesthesia Reactions: No Hx Malignant Hyperthermia: No Meds Allergies/Adverse Reactions: Allergies Allergy/AdvReac Type Severity Reaction Status Date / Time No Known Allergies Allergy Verified 09/23/16 09:56 - Medications Medications: Current Medications Albuterol (Ventolin Hfa 90 Mcg/Actuation (8 G)) 2 puff IH QID PRN PRN Reason: Shortness of Breath Albuterol Sulfate (Albuterol Sulfate) 2 mg PO QID [facility] Last Admin: 06/26/18 09:25 Dose: 2 mg Albuterol/Ipratropium (Duoneb 3 Mg/0.5 Mg (3 Ml) Ud) 3 ml INH RQ6 [facility] Last Admin: 06/26/18 13:05 Dose: Not Given Aspirin (Ecotrin) 81 mg PO DAILY [facility] Last Admin: 06/26/18 09:24 Dose: 81 mg Cilostazol (Pletal) 50 mg PO DAILY [facility] Last Admin: 06/26/18 09:24 Dose: 50 mg Clopidogrel Bisulfate (Plavix) 75 mg PO DAILY [facility] Last Admin: 06/26/18 09:24 Dose: 75 mg Enoxaparin Sodium (Lovenox) 40 mg SC DAILY [facility] Last Admin: 06/26/18 09:32 Dose: Not Given Famotidine (Pepcid) 40 mg PO DAILY [facility] Last Admin: 06/26/18 12:07 Dose: 40 mg Fenofibrate (Tricor) 145 mg PO QPM [facility] Fluticasone/Vilanterol (Breo Ellipta 100-25 Mcg Inh) 1 puff INH RBID [facility] Last Admin: 06/26/18 07:20 Dose: Not Given Gabapentin (Neurontin) 600 mg PO HS [facility] Last Admin: 06/25/18 21:47 Dose: 600 mg Sodium Chloride (Sodium Chloride 0.9%) 1,000 mls @ 75 mls/hr IV .[id number] [facility] Ibuprofen (Motrin Tab) 800 mg PO BID PRN PRN Reason: Pain, moderate (4-7) Last Admin: 06/24/18 06:45 Dose: 800 mg Isosorbide Mononitrate (Imdur Er) 30 mg PO DAILY [facility] Last Admin: 06/26/18 09:25 Dose: 30 mg Metoprolol Tartrate (Lopressor) 25 mg PO DAILY [facility] Last Admin: 06/26/18 09:25 Dose: 25 mg Montelukast Sodium (Singulair) 10 mg PO [facility] Last Admin: 06/25/18 21:47 Dose: 10 mg Ranolazine (Ranexa) 1,000 mg PO BID [facility] Last Admin: 06/26/18 09:24 Dose: 1,000 mg Rosuvastatin Calcium (Crestor) 5 mg PO [facility] Physical Exam - Constitutional Appears: Non-toxic, No Acute Distress - Head Exam Head Exam: ATRAUMATIC, NORMAL INSPECTION, NORMOCEPHALIC - Eye Exam Eye Exam: EOMI, Normal appearance, PERRL Pupil Exam: NORMAL ACCOMODATION, PERRL - ENT Exam ENT Exam: Mucous Membranes Moist - Neck Exam Neck exam: Positive for: Normal Inspection - Respiratory Exam Respiratory Exam: Clear to Auscultation Bilateral, NORMAL BREATHING PATTERN - Cardiovascular Exam Cardiovascular Exam: REGULAR RHYTHM Additional comments: 80 beats per minute - GI/Abdominal Exam GI & Abdominal Exam: Normal Bowel Sounds, Soft - Neurological Exam Neurological exam: Alert, CN II-XII Intact, Oriented x3 - Psychiatric Exam Psychiatric exam: Normal Affect, Normal Mood - Skin Skin Exam: Dry, Intact, Normal Color, Warm Results - Vital Signs Recent Vital Signs: Last Vital Signs Temp 97.9 F 06/26/18 08:05 Pulse 94 H 06/26/18 11:30 Resp 20 06/26/18 08:05 BP 129/80 06/26/18 09:25 Pulse Ox 99 06/26/18 08:05 - Labs Result Diagrams: 06/23/18 19:04 06/23/18 19:04 Labs: Laboratory Results - last 24 hr 06/26/18 06:34 PT 13.0 H INR 1.2 APTT 35 H Assessment & Plan - Assessment and Plan (Free Text) Assessment: This is a 47-year-old male with PMH of CAD, COPD, HTN, HLD who is status-post stent placement, who presents to [facility] with a chief complaint of chest tightness x1 week. Troponins were negative x3. Patient is s/p cath with Dr. Winter 06/26. Of note, patient complains of some chest pain, but otherwise denies shortness of breath, abdominal pain, blurry vision, dizziness, headache, nausea, vomiting and/or pruritus. 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 Patient is pending transfer to tertiary center for CABG. Patient currently being monitored in ICU. Neuro: - No acute issues - Neurology on board (Dr. Sutherland) for left-sided hemiparesis (old vs new) - A&Ox3 - Monitor CV: - PMH of CAD, HLD - Lipid panel reveals elevated LDL, Triglycerides, total - Patient is s/p stent - Troponins were negative x3 - s/p cath with Dr. Winter 06/26 * 3-vessel disease * Plan is for CABG, per cardio * Patient complained of chest pain after procedure * EKG obtained: NSR * Pending serial troponins Pulm: - History of COPD - Pulmonology consulted (Dr. Pace) Recommendations appreciated - Monitor vitals GI: - No acute issues - NPO - Start liquid diet tomorrow Renal: - No acute issues - Monitor CMP, Mg, Phos ID: - Afebrile - No leukocytosis - No acute issues - CBC with diff Heme: - No acute issues - Monitor H/H PPx: - GI: Pepsid 40mg PO Daily - DVT: Lovenox 40mg SC Daily Dispo: Patient is pending transfer to tertiary center for CABG. Patient seen and case discussed in detail with Dr. Maximino Mckenzie PGY1 <Steven Murphy - Last Filed: 06/26/18 18:33> Meds - Medications Medications: Current Medications Albuterol (Ventolin Hfa 90 Mcg/Actuation (8 G)) 2 puff IH QID PRN PRN Reason: Shortness of Breath Albuterol Sulfate (Albuterol Sulfate) 2 mg PO QID [facility] Last Admin: 06/26/18 09:25 Dose: 2 mg Albuterol/Ipratropium (Duoneb 3 Mg/0.5 Mg (3 Ml) Ud) 3 ml INH RQ6 [facility] Last Admin: 06/26/18 13:05 Dose: Not Given Aspirin (Ecotrin) 81 mg PO DAILY [facility] Last Admin: 06/26/18 09:24 Dose: 81 mg Cilostazol (Pletal) 50 mg PO DAILY [facility] Last Admin: 06/26/18 09:24 Dose: 50 mg Clopidogrel Bisulfate (Plavix) 75 mg PO DAILY [facility] Last Admin: 06/26/18 09:24 Dose: 75 mg Enoxaparin Sodium (Lovenox) 40 mg SC DAILY [facility] Last Admin: 06/26/18 09:32 Dose: Not Given Famotidine (Pepcid) 40 mg PO DAILY [facility] Last Admin: 06/26/18 12:07 Dose: 40 mg Fenofibrate (Tricor) 145 mg PO QPM [facility] Fluticasone/Vilanterol (Breo Ellipta 100-25 Mcg Inh) 1 puff INH RBID [facility] Last Admin: 06/26/18 07:20 Dose: Not Given Gabapentin (Neurontin) 600 mg PO HS [facility] Last Admin: 06/25/18 21:47 Dose: 600 mg Sodium Chloride (Sodium Chloride 0.9%) 1,000 mls @ 75 mls/hr IV .[id number] [facility] Last Admin: 06/26/18 17:22 Dose: 75 mls/hr Ibuprofen (Motrin Tab) 800 mg PO BID PRN PRN Reason: Pain, moderate (4-7) Last Admin: 06/24/18 06:45 Dose: 800 mg Isosorbide Mononitrate (Imdur Er) 30 mg PO DAILY [facility] Last Admin: 06/26/18 09:25 Dose: 30 mg Metoprolol Tartrate (Lopressor) 25 mg PO DAILY [facility] Last Admin: 06/26/18 09:25 Dose: 25 mg Montelukast Sodium (Singulair) 10 mg PO HS [facility] Last Admin: 06/25/18 21:47 Dose: 10 mg Ranolazine (Ranexa) 1,000 mg PO BID [facility] Last Admin: 06/26/18 17:22 Dose: 1,000 mg Rosuvastatin Calcium (Crestor) 5 mg PO [facility] Results - Vital Signs Recent Vital Signs: Last Vital Signs Temp 98.3 F 06/26/18 16:00 Pulse 74 06/26/18 17:30 Resp 16 06/26/18 17:30 BP 106/59 L 06/26/18 17:30 Pulse Ox 96 06/26/18 17:19 - Labs Result Diagrams: 06/23/18 19:04 06/23/18 19:04 Labs: Laboratory Results - last 24 hr 06/26/18 06:34 PT 13.0 H INR 1.2 APTT 35 H Assessment & Plan - Assessment and Plan (Free Text) Plan: PAtient seen and examiend at bedside. Patient s/p cardiac cath. -Hemodynamically stable -continue to monitor -continue all other treatment as per cardiology - Date & Time Date: 06/26/18 Time: 18:33
[2018-06-26] MEDS: Sodium Chloride 0.9% 1,000 ML IV SCH (17:22)
[2018-06-26 18:57] LABS: CK-MB < 0.22 ng/mL (0.0-3.38)
--- NOTE | 2018-06-26 23:59 | CARD ---
APPROVED REPORT Date of service: 06/23/2018 EKG Measurement Heart [id number] <Conclusion> Normal sinus rhythm Normal ECG
[2018-06-27] MEDS: Albuterol-Ipratrop 3 mg / 0.5 (3 ml) UD INH SCH ×4 (01:13→20:54)
[2018-06-27 01:17] LABS: CK-MB 2.96 ng/mL (0.0-3.38)
[2018-06-27 06:07] LABS: BASO % 0.6 % (0.0-2.0); EOS # 0.1 K/uL (0.0-0.7); EOS % 1.1 % (0.0-4.0); HEMOGLOBIN 12.8 g/dL (12.0-18.0); LYMPH # 1.1 K/uL (1.0-4.3); LYMPH % 15.3 % (20.0-40.0); MEAN CELL VOLUME 90.8 fL (80.0-94.0); MEAN CORPUSCULAR HEMOGLOBIN 30.6 pg (27.0-31.0); MEAN CORPUSCULAR HGB CONC 33.7 g/dL (33.0-37.0); MEAN PLATELET VOLUME 9.1 fL (7.2-11.7); MONO # 0.6 K/uL (0.0-0.8); MONO % 8.9 % (0.0-10.0); NEUT # 5.3 K/uL (1.8-7.0); NEUT % 74.1 % (50.0-75.0); NRBC % 0.1 % (0.0-2.0); RBC 4.17 Mil/uL (4.40-5.90); RED CELL DISTRIBUTION WIDTH 13.2 % (11.5-14.5); WHITE BLOOD COUNT 7.2 K/uL (4.8-10.8)
[2018-06-27 06:29] LABS: ALB/GLOB RATIO 1.3 (1.0-2.1); ALBUMIN 4.1 g/dL (3.5-5.0); ALT/SGPT 36 U/L (21-72); AST/SGOT 55 U/L (17-59); BLOOD UREA NITROGEN 9 mg/dL (9-20); CALCIUM 8.8 mg/dl (8.6-10.4); GFR NON-AFRICAN AMERICAN > 60
[2018-06-27] MEDS: Sodium Chloride 0.9% 1,000 ML IV SCH ×2 (06:30→21:32)
[2018-06-27 06:36] LABS: CK-MB 3.31 ng/mL (0.0-3.38)
[2018-06-27] MEDS: Enoxaparin 40 mg Syringe SC SCH (09:31)
[2018-06-27] MEDS: Ranolazine 500 mg Extended Release Tablets PO SCH ×2 (09:32→17:51)
[2018-06-27] MEDS: Cilostazol 50 mg Tab UD PO SCH (09:32)
--- NOTE | 2018-06-27 09:38 | CP.CCUPN ---
CCU Subjective - Physician Review Events Since Last Encounter (Free Text): 06/27/18 09:37 Patient is a 47-year-old male with a history of smoking, history of multiple CAD, and multiple stent in the past hypercholesterolemia COPD. Patient admitted with chest pain. Patient underwent angiogram, suggested to have triple-vessel disease. According to the cardiology patient possibly need a CABG. Currently on examination patient is comfortable. No chest pain. Denies any nausea, no vomiting noted. Left groin no swelling noted, peripheral pulses better Some weakness in the left lower extremity noted, seen by neurologist Assessment: Patient is a 47-year-old male with a history of CAD, COPD hypertension hyperlipidemia history of stent in the past. Patient is a chronic smoker also. Admitted with the chest pain. Multivessel disease noted. At this time patient is clinical stable. He can be transferred to telemetry, but he is awaiting for possible transfer to tertiary center, but patient wants to go home and he wants to do it as an outpatient. Will discuss with the cardiology CCU Objective - Vital Signs / Intake & Output Vital Signs (Last 4 hours): Vital Signs Temp Pulse Resp BP Pulse Ox 06/27/18 09:32 124/77 06/27/18 08:07 79 20 110/73 100 06/27/18 08:00 97.9 F 100 06/27/18 07:30 133 H 19 98 06/27/18 07:20 106 H 21 98 06/27/18 07:10 83 24 99 06/27/18 07:08 128 H 15 103/57 L 99 06/27/18 07:00 133 H 15 99 06/27/18 06:50 73 21 98 06/27/18 06:40 73 16 98 06/27/18 06:30 111 H 24 99 06/27/18 06:20 79 18 98 06/27/18 06:10 87 18 99 06/27/18 06:07 76 19 93/57 L 98 06/27/18 06:00 75 16 98 06/27/18 05:50 71 15 97 06/27/18 05:40 74 21 96 Intake and Output (Last 8hrs): Intake & Output 06/26/18 06/27/18 06/27/18 22:59 06:59 14:59 Intake Total 450 600 375 Output Total 450 700 0 Balance 0 -100 375 Weight 174 lb 2.643 oz Intake: Intake, IV Amount 450 600 225 Right Antecubital 450 600 225 Oral 150 Output: Urine 450 700 0 Urine, Voided 450 700 0 Stool 0 0 0 - Medications Active Medications: Active Medications Generic Name Dose Route Start Last Admin Trade Name Freq PRN Reason Stop Dose Admin Albuterol 2 puff 06/24/18 05:48 Ventolin Hfa 90 Mcg/Actuation (8 G) IH QID PRN Shortness of Breath Albuterol Sulfate 2 mg 06/24/18 18:00 06/26/18 09:25 Albuterol Sulfate PO 2 mg QID WILLIE Administration Albuterol/Ipratropium 3 ml 06/24/18 20:00 06/27/18 08:12 Duoneb 3 Mg/0.5 Mg (3 Ml) Ud INH 3 ml RQ6 WILLIE Administration Aspirin 81 mg 06/24/18 10:00 06/27/18 09:32 Ecotrin PO 81 mg DAILY WILLIE Administration Cilostazol 50 mg 06/24/18 10:00 06/27/18 09:32 Pletal PO 50 mg DAILY WILLIE Administration Clopidogrel Bisulfate 75 mg 06/24/18 10:00 06/27/18 09:32 Plavix PO 75 mg DAILY WILLIE Administration Enoxaparin Sodium 40 mg 06/24/18 10:00 06/27/18 09:31 Lovenox SC 40 mg DAILY WILLIE Administration Famotidine 40 mg 06/26/18 11:45 06/27/18 09:29 Pepcid PO 40 mg DAILY WILLIE Administration Fenofibrate 145 mg 06/26/18 18:00 06/26/18 19:03 Tricor PO 145 mg QPM WILLIE Administration Fluticasone/Vilanterol 1 puff 06/24/18 10:00 06/26/18 19:17 Breo Ellipta 100-25 Mcg Inh INH 1 puff RBID WILLIE Administration Gabapentin 600 mg 06/24/18 22:00 06/26/18 21:02 Neurontin PO 600 mg HS WILLIE Administration Sodium Chloride 1,000 mls @ 75 mls/hr 06/26/18 16:45 06/27/18 06:30 Sodium Chloride 0.9% IV 75 mls/hr .[id number] WILLIE Administration Ibuprofen 800 mg 06/24/18 05:52 06/24/18 06:45 Motrin Tab PO 800 mg BID PRN Administration Pain, moderate (4-7) Isosorbide Mononitrate 30 mg 06/24/18 10:00 06/27/18 09:32 Imdur Er PO 30 mg DAILY WILLIE Administration Metoprolol Tartrate 25 mg 06/24/18 10:00 06/27/18 09:32 Lopressor PO 25 mg DAILY WILLIE Administration Montelukast Sodium 10 mg 06/24/18 22:00 06/26/18 21:03 Singulair PO 10 mg HS WILLIE Administration Ranolazine 1,000 mg 06/24/18 10:00 06/27/18 09:32 Ranexa PO 1,000 mg BID WILLIE Administration Rosuvastatin Calcium 5 mg 06/26/18 07:04 06/26/18 21:02 Crestor PO 5 mg HS WILLIE Administration - Patient Studies Lab Studies: Lab Studies 06/27/18 06/27/18 06/27/18 Range/Units 05:59 05:59 00:49 WBC 7.2 (4.8-10.8) K/uL RBC 4.17 L (4.40-5.90) Mil/uL Hgb 12.8 (12.0-18.0) g/dL Hct 37.9 (35.0-51.0) % MCV 90.8 (80.0-94.0) fL MCH 30.6 (27.0-31.0) pg MCHC 33.7 (33.0-37.0) g/dL RDW 13.2 (11.5-14.5) % Plt Count 250 (130-400) K/uL MPV 9.1 (7.2-11.7) fL Neut % (Auto) 74.1 (50.0-75.0) % Lymph % (Auto) 15.3 L (20.0-40.0) % Kimble % (Auto) 8.9 (0.0-10.0) % Eos % (Auto) 1.1 (0.0-4.0) % Baso % (Auto) 0.6 (0.0-2.0) % Neut # (Auto) 5.3 (1.8-7.0) K/uL Lymph # (Auto) 1.1 (1.0-4.3) K/uL Kimble # (Auto) 0.6 (0.0-0.8) K/uL Eos # (Auto) 0.1 (0.0-0.7) K/uL Baso # (Auto) 0.0 (0.0-0.2) K/uL Sodium 138 (132-148) mmol/L Potassium 4.8 (3.6-5.2) mmol/L Chloride 106 (98-107) mmol/L Carbon Dioxide 22 (22-30) mmol/L Anion Gap 14 (10-20) BUN 9 (9-20) mg/dL Creatinine 0.9 (0.8-1.5) mg/dL Est GFR ( Amer) > 60 Est GFR (Non-Af Amer) > 60 Random Glucose 91 (75-110) mg/dL Calcium 8.8 (8.6-10.4) mg/dl Phosphorus 3.7 (2.5-4.5) mg/dL Magnesium 1.9 (1.6-2.3) mg/dL Total Bilirubin 1.1 (0.2-1.3) mg/dL AST 55 (17-59) U/L ALT 36 (21-72) U/L Alkaline Phosphatase 54 (38-126) U/L Total Creatine Kinase 184 H 129 (55-170) U/L CK-MB (Mass) 3.31 2.96 (0.0-3.38) ng/mL Troponin I 0.0120 < 0.0120 (0.00-0.120) ng/mL Total Protein 7.2 (6.3-8.3) g/dL Albumin 4.1 (3.5-5.0) g/dL Globulin 3.1 (2.2-3.9) gm/dL Albumin/Globulin Ratio 1.3 (1.0-2.1) 06/26/18 Range/Units 18:31 WBC (4.8-10.8) K/uL RBC (4.40-5.90) Mil/uL Hgb (12.0-18.0) g/dL Hct (35.0-51.0) % MCV (80.0-94.0) fL MCH (27.0-31.0) pg MCHC (33.0-37.0) g/dL RDW (11.5-14.5) % Plt Count (130-400) K/uL MPV (7.2-11.7) fL Neut % (Auto) (50.0-75.0) % Lymph % (Auto) (20.0-40.0) % Kimble % (Auto) (0.0-10.0) % Eos % (Auto) (0.0-4.0) % Baso % (Auto) (0.0-2.0) % Neut # (Auto) (1.8-7.0) K/uL Lymph # (Auto) (1.0-4.3) K/uL Kimble # (Auto) (0.0-0.8) K/uL Eos # (Auto) (0.0-0.7) K/uL Baso # (Auto) (0.0-0.2) K/uL Sodium (132-148) mmol/L Potassium (3.6-5.2) mmol/L Chloride (98-107) mmol/L Carbon Dioxide (22-30) mmol/L Anion Gap (10-20) BUN (9-20) mg/dL Creatinine (0.8-1.5) mg/dL Est GFR ( Amer) Est GFR (Non-Af Amer) Random Glucose (75-110) mg/dL Calcium (8.6-10.4) mg/dl Phosphorus (2.5-4.5) mg/dL Magnesium (1.6-2.3) mg/dL Total Bilirubin (0.2-1.3) mg/dL AST (17-59) U/L ALT (21-72) U/L Alkaline Phosphatase (38-126) U/L Total Creatine Kinase 47 L (55-170) U/L CK-MB (Mass) < 0.22 (0.0-3.38) ng/mL Troponin I < 0.0120 (0.00-0.120) ng/mL Total Protein (6.3-8.3) g/dL Albumin (3.5-5.0) g/dL Globulin (2.2-3.9) gm/dL Albumin/Globulin Ratio (1.0-2.1) Laboratory Results - last 24 hr 06/26/18 06/27/18 06/27/18 18:31 00:49 05:59 WBC RBC Hgb Hct MCV MCH MCHC RDW Plt Count MPV Neut % (Auto) Lymph % (Auto) Kimble % (Auto) Eos % (Auto) Baso % (Auto) Neut # (Auto) Lymph # (Auto) Kimble # (Auto) Eos # (Auto) Baso # (Auto) Sodium 138 Potassium 4.8 Chloride 106 Carbon Dioxide 22 Anion Gap 14 BUN 9 Creatinine 0.9 Est GFR ( Amer) > 60 Est GFR (Non-Af Amer) > 60 Random Glucose 91 Calcium 8.8 Phosphorus 3.7 Magnesium 1.9 Total Bilirubin 1.1 AST 55 ALT 36 Alkaline Phosphatase 54 Total Creatine Kinase 47 L 129 184 H CK-MB (Mass) < 0.22 2.96 3.31 Troponin I < 0.0120 < 0.0120 0.0120 Total Protein 7.2 Albumin 4.1 Globulin 3.1 Albumin/Globulin Ratio 1.3 06/27/18 05:59 WBC 7.2 RBC 4.17 L Hgb 12.8 Hct 37.9 MCV 90.8 MCH 30.6 MCHC 33.7 RDW 13.2 Plt Count 250 MPV 9.1 Neut % (Auto) 74.1 Lymph % (Auto) 15.3 L Kimble % (Auto) 8.9 Eos % (Auto) 1.1 Baso % (Auto) 0.6 Neut # (Auto) 5.3 Lymph # (Auto) 1.1 Kimble # (Auto) 0.6 Eos # (Auto) 0.1 Baso # (Auto) 0.0 Sodium Potassium Chloride Carbon Dioxide Anion Gap BUN Creatinine Est GFR ( Amer) Est GFR (Non-Af Amer) Random Glucose Calcium Phosphorus Magnesium Total Bilirubin AST ALT Alkaline Phosphatase Total Creatine Kinase CK-MB (Mass) Troponin I Total Protein Albumin Globulin Albumin/Globulin Ratio EKG/Cardiology Studies: Cardiology / EKG Studies 06/26/18 17:27 EKG [ELECTROCARDIOGRAM] Stat Comment: Mode Of Transportation: Reason For Exam: CHEST PAIN S/P CATH Critical Care Progress Note - Nutrition Nutrition: Nutrition Category Date Time Status Heart Healthy Diet [DIET] Diets 06/27/18 Breakfast Active
[2018-06-27] MEDS: Fluticasone-Vilanterol 100/25mcg Diskus INH SCH ×2 (11:02→20:54)
--- NOTE | 2018-06-27 12:48 | CATH ---
APPROVED REPORT Date of service: 06/26/2018 Procedure(s) performed: Cardiac catheterization. HISTORY The patient is a 47 year-old male with a history of : previous DE, coronary artery disease, hypertension, dyslipidemia. INDICATION The indication(s) include : unstable angina . CASE TECHNIQUE The patient was brought electively to the Cardiac Catheterization Laboratory in a fasting state and was prepped and draped in a sterile manner. The left femoral groin was infiltrated with 2% Lidocaine subcutaneous anesthesia. The left coronary system was accessed and visualized with a 6 F JL4 catheter. The right coronary system was accessed and visualized with a 6F JR4 catheter. The left ventricle was accessed and visualized with a 6F Pig tail catheter. Vessel Analysis The patient's coronary anatomy is right dominant. The left main coronary artery is a medium size vessel . The left main bifurcates to the left anterior descending and circumflex. The left anterior descending artery is a medium size vessel . There is a patent stent in the LAD with proximal to stent 50-70% lesion in the mid vessel segment. The circumflex artery is a medium size vessel . There is ostial 70-80% stenosis. The ramus intermedius artery is a medium size vessel . The right coronary artery is a medium size vessel . There is a long 80-90% lesion in the mid vessel segment. Left Ventricle The left ventricle is normal in size with contractility. The left ventricular ejection fraction is estimated to be 55%. Conclusion L M is normal. LAD has a patent stent with proximal to stent 50-70% stenosis. LCx has ostial 70-80% stenosis. RCA has 80-90% long lesion. Normal LV systolic function.
--- NOTE | 2018-06-27 15:06 | RAD ---
Date of service: 06/27/2018 HISTORY: s/p cath COMPARISON: Comparison chest 06/23/2018 FINDINGS: LUNGS: No active pulmonary disease. PLEURA: No significant pleural effusion identified, no pneumothorax apparent. CARDIOVASCULAR: Minimal aortic atherosclerotic calcification present. The heart appears upper limits of normal in size. No pulmonary vascular congestion. OSSEOUS STRUCTURES: No significant abnormalities. VISUALIZED UPPER ABDOMEN: Normal. OTHER FINDINGS: None. IMPRESSION: Minor bibasilar atelectasis
[2018-06-28] MEDS: Sodium Chloride 0.9% 1,000 ML IV SCH ×3 (00:15→21:08)
[2018-06-28] MEDS: Albuterol-Ipratrop 3 mg / 0.5 (3 ml) UD INH SCH ×4 (02:45→19:34)
[2018-06-28 06:13] LABS: BASO # 0.1 K/uL (0.0-0.2); BASO % 1.1 % (0.0-2.0); EOS # 0.1 K/uL (0.0-0.7); EOS % 1.5 % (0.0-4.0); HEMOGLOBIN 12.4 g/dL (12.0-18.0); LYMPH # 1.2 K/uL (1.0-4.3); LYMPH % 19.9 % (20.0-40.0); MEAN CELL VOLUME 90.7 fL (80.0-94.0); MEAN CORPUSCULAR HGB CONC 34.2 g/dL (33.0-37.0); MEAN PLATELET VOLUME 8.7 fL (7.2-11.7); MONO # 0.6 K/uL (0.0-0.8); MONO % 9.4 % (0.0-10.0); NEUT % 68.1 % (50.0-75.0); RBC 3.99 Mil/uL (4.40-5.90); WHITE BLOOD COUNT 5.9 K/uL (4.8-10.8)
[2018-06-28 06:34] LABS: ALB/GLOB RATIO 1.4 (1.0-2.1); ALBUMIN 3.9 g/dL (3.5-5.0); ALT/SGPT 53 U/L (21-72); AST/SGOT 54 U/L (17-59); BLOOD UREA NITROGEN 12 mg/dL (9-20); GFR NON-AFRICAN AMERICAN > 60
[2018-06-28] MEDS: Cilostazol 50 mg Tab UD PO SCH (09:36)
[2018-06-28] MEDS: Ranolazine 500 mg Extended Release Tablets PO SCH ×2 (09:37→18:10)
[2018-06-28] MEDS: Enoxaparin 40 mg Syringe SC SCH (09:39)
[2018-06-28] MEDS: Fluticasone-Vilanterol 100/25mcg Diskus INH SCH ×2 (13:19→19:34)
--- NOTE | 2018-06-28 13:39 | CP.PCM.PN ---
Subjective - Date & Time of Evaluation Date of Evaluation: 06/28/18 Time of Evaluation: 13:36 - Subjective Subjective: pt inccu s/p cardiac cath 3 vessel disease will need open ht surgery aydee is beter Objective - Vital Signs/Intake and Output Vital Signs (last 24 hours): Temp Pulse Resp BP Pulse Ox 97.9 F 94 H 16 112/59 L 98 06/28/18 04:00 06/28/18 07:45 06/28/18 07:07 06/28/18 09:38 06/28/18 07:07 Intake and Output: 06/28/18 06/28/18 06:59 18:59 Intake Total 1695 Output Total 1100 Balance 595 - Medications Medications: Current Medications Albuterol (Ventolin Hfa 90 Mcg/Actuation (8 G)) 2 puff IH QID PRN PRN Reason: Shortness of Breath Albuterol Sulfate (Albuterol Sulfate) 2 mg PO QID [facility] Last Admin: 06/26/18 09:25 Dose: 2 mg Albuterol/Ipratropium (Duoneb 3 Mg/0.5 Mg (3 Ml) Ud) 3 ml INH RQ6 [facility] Last Admin: 06/28/18 13:19 Dose: 3 ml Aspirin (Ecotrin) 81 mg PO DAILY [facility] Last Admin: 06/28/18 09:36 Dose: 81 mg Cilostazol (Pletal) 50 mg PO DAILY [facility] Last Admin: 06/28/18 09:36 Dose: 50 mg Clopidogrel Bisulfate (Plavix) 75 mg PO DAILY [facility] Last Admin: 06/28/18 09:36 Dose: 75 mg Enoxaparin Sodium (Lovenox) 40 mg SC DAILY [facility] Last Admin: 06/28/18 09:39 Dose: 40 mg Famotidine (Pepcid) 40 mg PO DAILY [facility] Last Admin: 06/28/18 09:37 Dose: 40 mg Fenofibrate (Tricor) 145 mg PO QPM [facility] Last Admin: 06/27/18 17:51 Dose: 145 mg Fluticasone/Vilanterol (Breo Ellipta 100-25 Mcg Inh) 1 puff INH RBID [facility] Last Admin: 06/28/18 13:19 Dose: 1 puff Gabapentin (Neurontin) 600 mg PO HS [facility] Last Admin: 06/27/18 21:46 Dose: 600 mg Sodium Chloride (Sodium Chloride 0.9%) 1,000 mls @ 75 mls/hr IV .[id number] [facility] Last Admin: 06/28/18 08:24 Dose: Not Given Ibuprofen (Motrin Tab) 800 mg PO BID PRN PRN Reason: Pain, moderate (4-7) Last Admin: 06/27/18 14:57 Dose: 800 mg Isosorbide Mononitrate (Imdur Er) 30 mg PO DAILY [facility] Last Admin: 06/28/18 09:36 Dose: 30 mg Metoprolol Tartrate (Lopressor) 25 mg PO DAILY [facility] Last Admin: 06/28/18 09:38 Dose: 25 mg Montelukast Sodium (Singulair) 10 mg PO HS [facility] Last Admin: 06/27/18 21:46 Dose: 10 mg Ranolazine (Ranexa) 1,000 mg PO BID [facility] Last Admin: 06/28/18 09:37 Dose: 1,000 mg Rosuvastatin Calcium (Crestor) 5 mg PO [facility] Last Admin: 06/27/18 21:46 Dose: 5 mg - Labs Labs: 06/28/18 06:07 06/28/18 06:07 PT 13.0 SECONDS (9.7-12.2) H 06/26/18 06:34 INR 1.2 06/26/18 06:34 APTT 35 SECONDS (21-34) H 06/26/18 06:34 - Constitutional Appears: Non-toxic - Head Exam Head Exam: NORMAL INSPECTION - Eye Exam Eye Exam: Normal appearance Pupil Exam: NORMAL ACCOMODATION - ENT Exam ENT Exam: Normal Exam - Neck Exam Neck Exam: Full ROM - Respiratory Exam Respiratory Exam: Decreased Breath Sounds - Cardiovascular Exam Cardiovascular Exam: REGULAR RHYTHM - GI/Abdominal Exam GI & Abdominal Exam: Normal Bowel Sounds - Exam Exam: NORMAL INSPECTION External exam: NORMAL EXTERNAL EXAM Additional comments: site of c cath no bleeding or swelling - Extremities Exam Extremities Exam: Normal Inspection - Neurological Exam Neurological Exam: Alert, Awake, Oriented x3 - Psychiatric Exam Psychiatric exam: Normal Affect - Skin Skin Exam: Normal Color Assessment and Plan - Assessment and Plan (Free Text) Assessment: cad 3 vessel arrange for cardiac surgery asthma controled
[2018-06-29] MEDS: Albuterol-Ipratrop 3 mg / 0.5 (3 ml) UD INH SCH ×4 (01:12→19:42)
[2018-06-29 06:30] LABS: BASO # 0.1 K/uL (0.0-0.2); BASO % 0.7 % (0.0-2.0); EOS # 0.1 K/uL (0.0-0.7); HEMOGLOBIN 12.5 g/dL (12.0-18.0); LYMPH # 1.6 K/uL (1.0-4.3); LYMPH % 22.2 % (20.0-40.0); MEAN CELL VOLUME 90.5 fL (80.0-94.0); MEAN CORPUSCULAR HEMOGLOBIN 30.6 pg (27.0-31.0); MEAN CORPUSCULAR HGB CONC 33.8 g/dL (33.0-37.0); MONO # 0.7 K/uL (0.0-0.8); MONO % 9.4 % (0.0-10.0); NEUT # 4.6 K/uL (1.8-7.0); NEUT % 65.7 % (50.0-75.0); NRBC % 0.1 % (0.0-2.0); RBC 4.1 Mil/uL (4.40-5.90); RED CELL DISTRIBUTION WIDTH 13.2 % (11.5-14.5); WHITE BLOOD COUNT 7.1 K/uL (4.8-10.8)
[2018-06-29 06:51] LABS: ALB/GLOB RATIO 1.6 (1.0-2.1); ALBUMIN 4.1 g/dL (3.5-5.0); ALT/SGPT 52 U/L (21-72); AST/SGOT 42 U/L (17-59); BLOOD UREA NITROGEN 10 mg/dL (9-20); CALCIUM 9.1 mg/dl (8.6-10.4); GFR NON-AFRICAN AMERICAN > 60
[2018-06-29] MEDS: Fluticasone-Vilanterol 100/25mcg Diskus INH SCH ×2 (07:43→19:42)
--- NOTE | 2018-06-29 09:48 | CON ---
DATE: 06/26/2018 HISTORY OF PRESENT ILLNESS: The patient is a 47-year-old man with history of coronary artery disease, status post stent; history of with left-sided weakness after the DC. The patient told that he does not have a stroke by exam; however, the patient is having left-sided weakness for which he uses a cane. The patient complains of chest pain, atypical, radiated to the left arm and shortness of breath. The patient is an ex-smoker. 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 The patient reports . PHYSICAL EXAMINATION: GENERAL: The patient is awake, alert, and oriented to time and place. VITAL SIGNS: Temperature 98, pulse 90. HEENT: Within normal limits. NECK: Supple. CHEST: Symmetrical. HEART: Regular. ABDOMEN: Soft. EXTREMITIES: No edema. ASSESSMENT AND PLAN: At this point, the patient suffers from stroke and arrest without cardiac , chronic obstructive pulmonary disease. At this point, continue bronchodilators. Get pulmonary function tests pulmonary function. We will discuss with irrigation equipment remover and neurologist. Dipika Pace MD
[2018-06-29] MEDS: Enoxaparin 40 mg Syringe SC SCH (10:14)
[2018-06-29] MEDS: Ranolazine 500 mg Extended Release Tablets PO SCH ×2 (10:15→17:56)
[2018-06-29] MEDS: Cilostazol 50 mg Tab UD PO SCH (10:15)
--- NOTE | 2018-06-29 17:27 | CP.PCM.PN ---
Subjective - Date & Time of Evaluation Date of Evaluation: 06/29/18 Time of Evaluation: 17:25 - Subjective Subjective: pt bp flactuating feels weeke Objective - Vital Signs/Intake and Output Vital Signs (last 24 hours): Temp Pulse Resp BP Pulse Ox 99.3 F 91 H 18 119/71 99 06/29/18 12:00 06/29/18 12:00 06/29/18 12:00 06/29/18 12:00 06/29/18 12:00 Intake and Output: 06/29/18 06/29/18 06:59 18:59 Intake Total 1050 400 Output Total 500 900 Balance 550 -500 - Medications Medications: Current Medications Albuterol (Ventolin Hfa 90 Mcg/Actuation (8 G)) 2 puff IH QID PRN PRN Reason: Shortness of Breath Albuterol Sulfate (Albuterol Sulfate) 2 mg PO QID [facility] Last Admin: 06/26/18 09:25 Dose: 2 mg Albuterol/Ipratropium (Duoneb 3 Mg/0.5 Mg (3 Ml) Ud) 3 ml INH RQ6 [facility] Last Admin: 06/29/18 13:13 Dose: Not Given Aspirin (Ecotrin) 81 mg PO DAILY [facility] Last Admin: 06/29/18 10:13 Dose: 81 mg Cilostazol (Pletal) 50 mg PO DAILY [facility] Last Admin: 06/29/18 10:15 Dose: 50 mg Clopidogrel Bisulfate (Plavix) 75 mg PO DAILY [facility] Last Admin: 06/29/18 10:14 Dose: 75 mg Enoxaparin Sodium (Lovenox) 40 mg SC DAILY [facility] Last Admin: 06/29/18 10:14 Dose: 40 mg Famotidine (Pepcid) 40 mg PO DAILY [facility] Last Admin: 06/29/18 10:14 Dose: 40 mg Fenofibrate (Tricor) 145 mg PO QPM [facility] Last Admin: 06/28/18 18:10 Dose: 145 mg Fluticasone/Vilanterol (Breo Ellipta 100-25 Mcg Inh) 1 puff INH RBID [facility] Last Admin: 06/29/18 07:43 Dose: 1 puff Gabapentin (Neurontin) 600 mg PO HS [facility] Last Admin: 06/28/18 21:06 Dose: 600 mg Ibuprofen (Motrin Tab) 800 mg PO BID PRN PRN Reason: Pain, moderate (4-7) Last Admin: 06/28/18 16:27 Dose: 800 mg Isosorbide Mononitrate (Imdur Er) 30 mg PO DAILY [facility] Last Admin: 06/29/18 10:13 Dose: 30 mg Metoprolol Tartrate (Lopressor) 25 mg PO DAILY [facility] Last Admin: 06/29/18 10:14 Dose: 25 mg Montelukast Sodium (Singulair) 10 mg PO [facility] Last Admin: 06/28/18 21:06 Dose: 10 mg Ranolazine (Ranexa) 1,000 mg PO BID [facility] Last Admin: 06/29/18 10:15 Dose: 1,000 mg Rosuvastatin Calcium (Crestor) 5 mg PO [facility] Last Admin: 06/28/18 21:06 Dose: 5 mg - Labs Labs: 06/29/18 06:24 06/29/18 06:24 PT 13.0 SECONDS (9.7-12.2) H 06/26/18 06:34 INR 1.2 06/26/18 06:34 APTT 35 SECONDS (21-34) H 06/26/18 06:34 - Constitutional Appears: Non-toxic - Head Exam Head Exam: NORMAL INSPECTION - Eye Exam Eye Exam: Normal appearance Pupil Exam: NORMAL ACCOMODATION - ENT Exam ENT Exam: Mucous Membranes Moist - Neck Exam Neck Exam: Full ROM - Respiratory Exam Respiratory Exam: NORMAL BREATHING PATTERN - Cardiovascular Exam Cardiovascular Exam: REGULAR RHYTHM - GI/Abdominal Exam GI & Abdominal Exam: Normal Bowel Sounds - Back Exam Back Exam: NORMAL INSPECTION - Neurological Exam Neurological Exam: Alert, Normal Gait - Psychiatric Exam Psychiatric exam: Normal Affect - Skin Skin Exam: Normal Color Assessment and Plan - Assessment and Plan (Free Text) Assessment: triple vessel cad asthma Plan: cont as per orders will discuss with cardiology
--- NOTE | 2018-06-29 19:23 | CP.PCM.PN ---
Subjective - Date & Time of Evaluation Date of Evaluation: 06/29/18 Time of Evaluation: 18:35 - Subjective Subjective: patient has no current chest pain. discussed with Dr Winter, who was covering for me. I asked Dr Winter to perform cardaic cath due to persistent chest pain. I reviewed the cath gennygonzález dicussion with the patient regarding smoking cessation and medication compliance. Objective - Vital Signs/Intake and Output Vital Signs (last 24 hours): Temp Pulse Resp BP Pulse Ox 99.3 F 91 H 18 119/71 99 06/29/18 12:00 06/29/18 12:00 06/29/18 12:00 06/29/18 12:00 06/29/18 12:00 Intake and Output: 06/29/18 06/30/18 18:59 06:59 Intake Total 400 Output Total 900 Balance -500 - Medications Medications: Current Medications Albuterol (Ventolin Hfa 90 Mcg/Actuation (8 G)) 2 puff IH QID PRN PRN Reason: Shortness of Breath Albuterol Sulfate (Albuterol Sulfate) 2 mg PO QID [facility] Last Admin: 06/26/18 09:25 Dose: 2 mg Albuterol/Ipratropium (Duoneb 3 Mg/0.5 Mg (3 Ml) Ud) 3 ml INH RQ6 [facility] Last Admin: 06/29/18 13:13 Dose: Not Given Aspirin (Ecotrin) 81 mg PO DAILY [facility] Last Admin: 06/29/18 10:13 Dose: 81 mg Cilostazol (Pletal) 50 mg PO DAILY [facility] Last Admin: 06/29/18 10:15 Dose: 50 mg Clopidogrel Bisulfate (Plavix) 75 mg PO DAILY [facility] Last Admin: 06/29/18 10:14 Dose: 75 mg Enoxaparin Sodium (Lovenox) 40 mg SC DAILY [facility] Last Admin: 06/29/18 10:14 Dose: 40 mg Famotidine (Pepcid) 40 mg PO DAILY [facility] Last Admin: 06/29/18 10:14 Dose: 40 mg Fenofibrate (Tricor) 145 mg PO QPM [facility] Last Admin: 06/29/18 17:56 Dose: 145 mg Fluticasone/Vilanterol (Breo Ellipta 100-25 Mcg Inh) 1 puff INH RBID [facility] Last Admin: 06/29/18 07:43 Dose: 1 puff Gabapentin (Neurontin) 600 mg PO [facility] Last Admin: 06/28/18 21:06 Dose: 600 mg Ibuprofen (Motrin Tab) 800 mg PO BID PRN PRN Reason: Pain, moderate (4-7) Last Admin: 06/28/18 16:27 Dose: 800 mg Isosorbide Mononitrate (Imdur Er) 30 mg PO DAILY [facility] Last Admin: 06/29/18 10:13 Dose: 30 mg Metoprolol Tartrate (Lopressor) 25 mg PO DAILY [facility] Last Admin: 06/29/18 10:14 Dose: 25 mg Montelukast Sodium (Singulair) 10 mg PO [facility] Last Admin: 06/28/18 21:06 Dose: 10 mg Ranolazine (Ranexa) 1,000 mg PO BID [facility] Last Admin: 06/29/18 17:56 Dose: 1,000 mg Rosuvastatin Calcium (Crestor) 5 mg PO [facility] Last Admin: 06/28/18 21:06 Dose: 5 mg - Labs Labs: 06/29/18 06:24 06/29/18 06:24 PT 13.0 SECONDS (9.7-12.2) H 06/26/18 06:34 INR 1.2 06/26/18 06:34 APTT 35 SECONDS (21-34) H 06/26/18 06:34 - Constitutional Appears: Non-toxic - Head Exam Head Exam: NORMAL INSPECTION - Eye Exam Eye Exam: Normal appearance - ENT Exam ENT Exam: Mucous Membranes Moist - Neck Exam Neck Exam: Full ROM - Respiratory Exam Respiratory Exam: NORMAL BREATHING PATTERN - Cardiovascular Exam Cardiovascular Exam: REGULAR RHYTHM - GI/Abdominal Exam GI & Abdominal Exam: Normal Bowel Sounds - Rectal Exam Rectal Exam: Deferred - Extremities Exam Extremities Exam: Pedal Edema - Back Exam Back Exam: NORMAL INSPECTION - Neurological Exam Neurological Exam: Alert - Psychiatric Exam Psychiatric exam: Normal Affect - Skin Skin Exam: Normal Color Assessment and Plan (1) CAD (coronary artery disease) Assessment & Plan: I reviewed the cardai cath films. discussed options with the patient. I ill recommend stent of the istal second marginal branch and mid RCA. Patient refuses CABG. wood medically optimize and discharge patient tomorrow. will schedule elective intervention of the RCA and OM. patient agrees. Status: Acute (2) HTN (hypertension) Assessment & Plan: blood pressure is controlled. Status: Acute (3) Hypercholesteremia Assessment & Plan: patient does not tolerate statin therapy. will beneift form Rep[facility]. will need to obtain insurance approval as outpatient. Status: Acute
[2018-06-29] MEDS: Sodium Chloride 0.9% 1,000 ML IV SCH (19:40)
[2018-06-29] MEDS: Albuterol Sulfate 2 mg/5 ml Cup PO SCH (22:19)
[2018-06-30 07:05] LABS: BASO # 0.1 K/uL (0.0-0.2); BASO % 1.1 % (0.0-2.0); EOS # 0.1 K/uL (0.0-0.7); EOS % 2.1 % (0.0-4.0); HEMOGLOBIN 13.3 g/dL (12.0-18.0); LYMPH # 1.1 K/uL (1.0-4.3); LYMPH % 17.7 % (20.0-40.0); MEAN CELL VOLUME 89.6 fL (80.0-94.0); MEAN CORPUSCULAR HEMOGLOBIN 31.4 pg (27.0-31.0); MEAN PLATELET VOLUME 8.8 fL (7.2-11.7); MONO # 0.7 K/uL (0.0-0.8); MONO % 10.6 % (0.0-10.0); NEUT # 4.4 K/uL (1.8-7.0); NEUT % 68.5 % (50.0-75.0); RBC 4.24 Mil/uL (4.40-5.90); RED CELL DISTRIBUTION WIDTH 13.2 % (11.5-14.5); WHITE BLOOD COUNT 6.4 K/uL (4.8-10.8)
[2018-06-30] MEDS: Fluticasone-Vilanterol 100/25mcg Diskus INH SCH (07:30)
[2018-06-30 08:06] LABS: ALB/GLOB RATIO 1.3 (1.0-2.1); ALBUMIN 4.1 g/dL (3.5-5.0); ALT/SGPT 70 U/L (21-72); AST/SGOT 57 U/L (17-59); BLOOD UREA NITROGEN 10 mg/dL (9-20); CALCIUM 9.5 mg/dl (8.6-10.4); GFR NON-AFRICAN AMERICAN > 60
[2018-06-30] MEDS: Ranolazine 500 mg Extended Release Tablets PO SCH (10:06)
[2018-06-30] MEDS: Cilostazol 50 mg Tab UD PO SCH (10:06)
[2018-06-30] MEDS: Enoxaparin 40 mg Syringe SC SCH (10:07)
[2018-06-30] MEDS: Albuterol Sulfate 2 mg/5 ml Cup PO SCH (10:08)
--- NOTE | 2018-06-30 12:34 | CP.PCM.PN ---
Subjective - Date & Time of Evaluation Date of Evaluation: 06/30/18 Time of Evaluation: 12:31 - Subjective Subjective: pt feels beter seen by cardiology cleared for disch on medication my need repeate c cath Objective - Vital Signs/Intake and Output Vital Signs (last 24 hours): Temp Pulse Resp BP Pulse Ox 98.0 F 85 20 120/81 97 06/30/18 07:00 06/30/18 07:46 06/30/18 07:00 06/30/18 10:06 06/30/18 07:00 Intake and Output: 06/30/18 06/30/18 06:59 18:59 Intake Total 200 Balance 200 - Medications Medications: Current Medications Albuterol (Ventolin Hfa 90 Mcg/Actuation (8 G)) 2 puff IH QID PRN PRN Reason: Shortness of Breath Albuterol Sulfate (Albuterol Sulfate) 2 mg PO QID [facility] Last Admin: 06/30/18 10:08 Dose: 2 mg Aspirin (Ecotrin) 81 mg PO DAILY [facility] Last Admin: 06/30/18 10:06 Dose: 81 mg Cilostazol (Pletal) 50 mg PO DAILY [facility] Last Admin: 06/30/18 10:06 Dose: 50 mg Clopidogrel Bisulfate (Plavix) 75 mg PO DAILY [facility] Last Admin: 06/30/18 10:06 Dose: 75 mg Enoxaparin Sodium (Lovenox) 40 mg SC DAILY [facility] Last Admin: 06/30/18 10:07 Dose: 40 mg Famotidine (Pepcid) 40 mg PO DAILY [facility] Last Admin: 06/30/18 10:06 Dose: 40 mg Fenofibrate (Tricor) 145 mg PO QPM [facility] Last Admin: 06/29/18 17:56 Dose: 145 mg Fluticasone/Vilanterol (Breo Ellipta 100-25 Mcg Inh) 1 puff INH RBID [facility] Last Admin: 06/30/18 07:30 Dose: 1 puff Gabapentin (Neurontin) 600 mg PO HS [facility] Last Admin: 06/29/18 22:14 Dose: 600 mg Ibuprofen (Motrin Tab) 800 mg PO BID PRN PRN Reason: Pain, moderate (4-7) Last Admin: 06/28/18 16:27 Dose: 800 mg Isosorbide Mononitrate (Imdur Er) 30 mg PO DAILY [facility] Last Admin: 06/30/18 10:08 Dose: Not Given Metoprolol Tartrate (Lopressor) 25 mg PO DAILY [facility] Last Admin: 06/30/18 10:06 Dose: 25 mg Montelukast Sodium (Singulair) 10 mg PO [facility] Last Admin: 06/29/18 22:14 Dose: 10 mg Ranolazine (Ranexa) 1,000 mg PO BID [facility] Last Admin: 06/30/18 10:06 Dose: 1,000 mg Rosuvastatin Calcium (Crestor) 5 mg PO [facility] Last Admin: 06/29/18 22:14 Dose: 5 mg - Labs Labs: 06/30/18 06:53 06/30/18 06:53 PT 13.0 SECONDS (9.7-12.2) H 06/26/18 06:34 INR 1.2 06/26/18 06:34 APTT 35 SECONDS (21-34) H 06/26/18 06:34 - Constitutional Appears: Non-toxic - Eye Exam Eye Exam: Normal appearance Pupil Exam: NORMAL ACCOMODATION - ENT Exam ENT Exam: Normal Exam - Neck Exam Neck Exam: Full ROM - Respiratory Exam Respiratory Exam: NORMAL BREATHING PATTERN - Cardiovascular Exam Cardiovascular Exam: REGULAR RHYTHM - GI/Abdominal Exam GI & Abdominal Exam: Soft - Extremities Exam Extremities Exam: Full ROM - Back Exam Back Exam: NORMAL INSPECTION - Neurological Exam Neurological Exam: Alert, Oriented x3 - Psychiatric Exam Psychiatric exam: Normal Affect Assessment and Plan - Assessment and Plan (Free Text) Assessment: cad asthma stable Plan: discharge home with med f/u in my office and cardiology
[2018-06-30] MEDS ORDERED: Influenza Vaccine 60 MCG/0.5 ML SYR (3 yr & up) IM ONE (15:48)
[2018-06-30 15:52] VITALS: BP 121/80; PULSE 72; RESP 18; TEMP 97.9; O2SAT 100
--- NOTE | 2018-07-02 17:32 | CARD ---
APPROVED REPORT Date of service: 06/26/2018 EKG Measurement Heart [id number] <Conclusion> Normal sinus rhythm Low voltage QRS Borderline ECG
== END 2018-06-30 16:52 | disposition home or self-care (01) | DRG 191 ==
LOC: C.ER 17:24 → C.9E 20:55 → C.6T 22:36 → C.9I 06-26 16:21 → C.6T 06-29 21:23
PROVIDERS: ADMIT Internal Medicine; ATTEND Internal Medicine
PROC: 4A023N7 Measurement of Cardiac Sampling and Pressure, Left Heart, Percutaneous Approach (ICD-10-PCS; principal; 2018-06-26)
PROC: B2111ZZ Fluoroscopy of Multiple Coronary Arteries using Low Osmolar Contrast (ICD-10-PCS; 2018-06-26)
PROC: B2151ZZ Fluoroscopy of Left Heart using Low Osmolar Contrast (ICD-10-PCS; 2018-06-26)
DX: I25.110 Atherosclerotic heart disease of native coronary artery with unstable angina pectoris (principal); I11.0 Hypertensive heart disease with heart failure; I50.9 Heart failure, unspecified; J44.9 Chronic obstructive pulmonary disease, unspecified; E78.00 Pure hypercholesterolemia, unspecified; I25.2 Old myocardial infarction; K21.9 Gastro-esophageal reflux disease without esophagitis; F17.210 Nicotine dependence, cigarettes, uncomplicated; F41.9 Anxiety disorder, unspecified; F32.9 Major depressive disorder, single episode, unspecified; Z95.5 Presence of coronary angioplasty implant and graft; G89.4 Chronic pain syndrome; M50.122 Cervical disc disorder at C5-C6 level with radiculopathy

== ENCOUNTER 2018-10-11 01:01 | Observation (INO) | payer OTHER ==
[2018-10-11 01:02] VITALS: BMI 25.8
--- NOTE | 2018-10-11 02:19 | C.PDOC ---
History Of Present Illness 47 y/o M p/w chest pain x 4 hours. Patient reports chest discomfort associated with shortness of breath, lightheadedness, diaphoresis starting around 10:30pm. Patient states BP at home 140s/100. [place] head pressure as well. Cardiac stent placed 2 weeks ago at [facility] [place]. Denies fever, chills, cough, nausea, vomiting, leg swelling. Full dose ASA administered en route. PMD Sheryl Browne Tory Aleman Time Seen by Provider: 10/11/18 02:11 Chief Complaint (Nursing): Chest Pain History Per: Patient History/Exam Limitations: no limitations Onset/Duration Of Symptoms: Hrs Current Symptoms Are (Timing): Still Present Past Medical History Reviewed: Historical Data, Nursing Documentation, Vital Signs Vital Signs: Last Vital Signs Temp 97.8 F 10/11/18 01:14 Pulse 84 10/11/18 01:22 Resp 14 10/11/18 01:14 BP 115/74 10/11/18 01:14 Pulse Ox 98 10/11/18 01:14 - Medical History PMH: Anxiety, Asthma, CAD, CHF, COPD, Depression, HTN, Hypercholesterolemia Denies: Chronic Kidney Disease Surgical History: Coronary Stent (X2), Endoscopy (IN [place]) - [facility] Procedures CORONAR ARTERIOGR-2 CATH (05/25/14) FLUOROSCOPY OF LEFT HEART USING LOW OSMOLAR CONTRAST (06/23/18) FLUOROSCOPY OF MULT COR ART USING L OSM CONTRAST (06/23/18) INSERTION OF ONE VASCULAR STENT (10/27/13) INSRT OF DRUG-ELUTING CORON ARTERY STENTS(S) (10/27/13) LEFT HEART CARDIAC CATH (05/25/14) LT HEART ANGIOCARDIOGRAM (05/25/14) MEASURE OF CARDIAC SAMPL & PRESSURE, L HEART, PERC APPROACH (06/23/18) PERCUTANEOUS TRANSLUMINAL CORONARY ANGIOPLASTY [PTCA] (10/27/13) PLAIN RADIOGRAPHY OF LEFT HEART USING OTHER CONTRAST (07/18/15) PROCEDURE ON SINGLE VESSEL (10/27/13) Family History: States: Unknown Family Hx - Social History Hx Tobacco Use: Yes Hx Alcohol Use: No Hx Substance Use: No - Immunization History Hx Tetanus Toxoid Vaccination: No Hx Influenza Vaccination: No Hx Pneumococcal Vaccination: Yes Review Of Systems Except As Marked, All Systems Reviewed And Found Negative. Constitutional: Negative for: Fever Gastrointestinal: Negative for: Vomiting Physical Exam - Physical Exam Additional Physical Exam Comments: Constitutional: No acute distress. Head: Normocephalic. Atraumatic. Eyes: PERRL. ENT: Moist mucous membranes. Neck: Supple. Cardiovascular: Regular rate. Radial pulse 2+ bilaterally. Chest: No tenderness. Respiratory: Clear to auscultation bilaterally. GI: Soft. Nontender. Nondistended. Back: No CVA tenderness. Musculoskeletal: No tenderness or swelling of extremities. Skin: No rash. Neurologic: Alert, no focal deficit. ED Course And Treatment - Laboratory Results Result Diagrams: 10/11/18 02:28 10/11/18 02:28 O2 Sat by Pulse Oximetry: 98 Medical Decision Making Medical Decision Making: Progress: Bloodwork, CXR, EKG ordered and reviewed. NSR 78 bpm, no ST/T wave changes. Disposition - Disposition Disposition: HOSPITALIZED Disposition Time: 03:23 Condition: FAIR Forms: [facility] (Irish) - POA Core Measure Indicators: Chest Pain - Clinical Impression Clinical Impression: Chest discomfort
[2018-10-11 02:31] LABS: BASO # 0.1 K/uL (0.0-0.2); BASO % 1.2 % (0.0-2.0); EOS % 0.6 % (0.0-4.0); HEMOGLOBIN 12.9 g/dL (12.0-18.0); LYMPH # 1.1 K/uL (1.0-4.3); MEAN CELL VOLUME 89.5 fL (80.0-94.0); MEAN CORPUSCULAR HEMOGLOBIN 29.6 pg (27.0-31.0); MEAN PLATELET VOLUME 8.5 fL (7.2-11.7); MONO # 0.4 K/uL (0.0-0.8); MONO % 5.3 % (0.0-10.0); NEUT # 6.1 K/uL (1.8-7.0); NEUT % 78.9 % (50.0-75.0); RBC 4.35 Mil/uL (4.40-5.90); WHITE BLOOD COUNT 7.7 K/uL (4.8-10.8)
[2018-10-11 02:42] LABS: ALB/GLOB RATIO 1.8 (1.0-2.1); ALBUMIN 4.7 g/dL (3.5-5.0); ALT/SGPT 22 U/L (21-72); AST/SGOT 30 U/L (17-59); BLOOD UREA NITROGEN 15 mg/dL (9-20); CALCIUM 9.2 mg/dl (8.6-10.4); GFR NON-AFRICAN AMERICAN > 60
[2018-10-11 02:55] LABS: B-TYPE NATRIURETIC PEPTIDE 33.8 pg/mL (0-450)
[2018-10-11 02:56] LABS: CK-MB < 0.22 ng/mL (0.0-3.38)
[2018-10-11 06:10] LABS: CK-MB < 0.22 ng/mL (0.0-3.38)
[2018-10-11 06:29] LABS: HDL CHOLESTEROL 43 mg/dL (30-70)
[2018-10-11 06:39] LABS: LDL CHOLESTEROL 150 mg/dL (0-129)
[2018-10-11 08:15] VITALS: RESP 20; TEMP 97.8; O2SAT 96
[2018-10-11] MEDS ORDERED: Cilostazol 50 mg Tab UD PO SCH (10:00)
[2018-10-11] MEDS ORDERED: FAMOTIDINE 40 MG PO SCH (10:00)
[2018-10-11] MEDS ORDERED: Home Med 1 UNIT (Simvastatin [Simvastatin] 20 MG) PO SCH (10:00)
[2018-10-11] MEDS ORDERED: Albuterol HFA 90 mcg/actuation (8 g) IH SCH (10:00)
[2018-10-11] MEDS ORDERED: Fluticasone-Vilanterol 100/25mcg Diskus INH SCH (10:00)
--- NOTE | 2018-10-11 10:27 | CP.PCM.HP ---
History of Present Illness - History of Present Illness History of Present Illness: pt came to ed for chest pain retrosternal pressure sob light headea diaphoresis hx of cad s/p s stints inserted Present on Admission - Present on Admission Any Indicators Present on Admission: No Review of Systems - Review of Systems Systems not reviewed;Unavailable: Acuity of Condition - Constitutional Constitutional: Fatigue - EENT Eyes: As Per HPI Ears: As Per HPI Nose/Mouth/Throat: As Per HPI - Cardiovascular Cardiovascular: Chest Pain, Chest Pain at Rest, Chest Pain with Activity, Diaphoresis, Dyspnea, Dyspnea on Exertion, Lightheadedness - Respiratory Respiratory: Dyspnea on Exertion - Gastrointestinal Gastrointestinal: Nausea - Genitourinary Genitourinary: As Per HPI - Reproductive: Male Reproductive:Male: As Per HPI - Musculoskeletal Musculoskeletal: As Per HPI - Integumentary Integumentary: As Per HPI - Neurological Neurological: As Per HPI - Psychiatric Psychiatric: As Per HPI - Endocrine Additional Comments: hperglyceamia - Hematologic/Lymphatic Hematologic: As Per HPI Past Patient History - Infectious Disease Hx of Infectious Diseases: None - Past Medical History & Family History Past Medical History?: Yes - Past Social History Smoking Status: Light Smoker < 10 Cigarettes Daily - CARDIAC Hx Congestive Heart Failure: Yes Hx Hypercholesterolemia: Yes Hx Hypertension: Yes - PULMONARY Hx Asthma: Yes Hx Chronic Obstructive Pulmonary Disease (COPD): Yes - NEUROLOGICAL Hx Neurological Disorder: No - HEENT Hx HEENT Problems: Yes Other/Comment: wears glasses - RENAL Hx Chronic Kidney Disease: No - HEMATOLOGICAL/ONCOLOGICAL Hx Blood Disorders: No - INTEGUMENTARY Hx Dermatological Problems: No - MUSCULOSKELETAL/RHEUMATOLOGICAL Hx Musculoskeletal Disorders: No Hx Falls: No - GASTROINTESTINAL Hx Gastrointestinal Disorders: Yes Hx Gastroesophageal Reflux: Yes - GENITOURINARY/GYNECOLOGICAL Hx Genitourinary Disorders: No - PSYCHIATRIC Hx Anxiety: Yes Hx Depression: Yes Hx Substance Use: No - SURGICAL HISTORY Hx Coronary Stent: Yes (X2) - ANESTHESIA Hx Anesthesia: Yes Hx Anesthesia Reactions: No Hx Malignant Hyperthermia: No Meds Allergies/Adverse Reactions: Allergies Allergy/AdvReac Type Severity Reaction Status Date / Time No Known Allergies Allergy Verified 10/11/18 01:17 Physical Exam - Constitutional Appears: Non-toxic - Head Exam Head Exam: ATRAUMATIC - Eye Exam Eye Exam: Normal appearance Pupil Exam: NORMAL ACCOMODATION - ENT Exam ENT Exam: Mucous Membranes Moist - Neck Exam Neck exam: Positive for: Normal Inspection - Respiratory Exam Respiratory Exam: Accessory Muscle Use, NORMAL BREATHING PATTERN - Cardiovascular Exam Cardiovascular Exam: REGULAR RHYTHM - GI/Abdominal Exam GI & Abdominal Exam: Normal Bowel Sounds - Rectal Exam Rectal Exam: Deferred - Exam Exam: NORMAL INSPECTION - Extremities Exam Extremities exam: Positive for: normal inspection - Back Exam Back exam: NORMAL INSPECTION - Neurological Exam Neurological exam: Altered, Oriented x3 - Psychiatric Exam Psychiatric exam: Normal Affect - Skin Skin Exam: Normal Color Results - Vital Signs Recent Vital Signs: Last Vital Signs Temp 97.8 F 10/11/18 07:00 Pulse 62 10/11/18 07:00 Resp 20 10/11/18 07:00 BP 112/70 10/11/18 07:00 Pulse Ox 96 10/11/18 07:00 - Labs Result Diagrams: 10/11/18 02:28 10/11/18 02:28 Labs: Laboratory Results - last 24 hr 10/11/18 10/11/18 10/11/18 02:28 02:28 05:42 WBC 7.7 RBC 4.35 L Hgb 12.9 Hct 38.9 MCV 89.5 MCH 29.6 MCHC 33.0 RDW 13.0 Plt Count 319 MPV 8.5 Neut % (Auto) 78.9 H Lymph % (Auto) 14.0 L [place] % (Auto) 5.3 Eos % (Auto) 0.6 Baso % (Auto) 1.2 Neut # (Auto) 6.1 Lymph # (Auto) 1.1 [place] # (Auto) 0.4 Eos # (Auto) 0.0 Baso # (Auto) 0.1 Sodium 137 Potassium 4.3 Chloride 102 Carbon Dioxide 24 Anion Gap 15 BUN 15 Creatinine 1.0 Est GFR ( Amer) > 60 Est GFR (Non-Af Amer) > 60 Random Glucose 122 H Calcium 9.2 Total Bilirubin 0.4 AST 30 ALT 22 Alkaline Phosphatase 40 Total Creatine Kinase 83 56 CK-MB (Mass) < 0.22 < 0.22 Troponin I < 0.0120 < 0.0120 NT-Pro-B Natriuret Pep 33.8 Total Protein 7.4 Albumin 4.7 Globulin 2.7 Albumin/Globulin Ratio 1.8 Triglycerides 190 H Cholesterol 224 H LDL Cholesterol Direct 150 H HDL Cholesterol 43 Assessment & Plan - Assessment and Plan (Free Text) Assessment: ac chest pain cad s/p 3 stents hyperglyceamia Plan: cont observation await cardiology evaluation - Date & Time Date: 10/11/18 Time: 10:30
[2018-10-11] MEDS: Ranolazine 500 mg Extended Release Tablets PO SCH ×2 (10:53→18:50)
[2018-10-11] MEDS: Albuterol HFA 90 mcg/actuation (8 g) IH SCH ×2 (11:20→16:17)
[2018-10-11 11:48] LABS: CK-MB < 0.22 ng/mL (0.0-3.38)
--- NOTE | 2018-10-11 12:54 | RAD ---
Date of service: 10/11/2018 HISTORY: cp, dyspnea COMPARISON: 06/27/2018 FINDINGS: LUNGS: No active pulmonary disease. PLEURA: No significant pleural effusion identified, no pneumothorax apparent. CARDIOVASCULAR: No aortic atherosclerotic calcification present. Normal cardiac size. No pulmonary vascular congestion. OSSEOUS STRUCTURES: No significant abnormalities. VISUALIZED UPPER ABDOMEN: Normal. OTHER FINDINGS: None. IMPRESSION: No active disease.
[2018-10-11 15:53] VITALS: BP 101/62
[2018-10-11 16:35] VITALS: PULSE 71
--- NOTE | 2018-10-11 18:18 | CP.PCM.CON ---
History of Present Illness - History of Present Illness History of Present Illness: I was asked to evaluate patient by Dr Browne Patient was seen 10/11/181814 Patient is a 47 year old male with CAD s.p PCI HTN hypercholesterolemia and DM who presents with uincontrolled HTN. Patinet states he felt headache at home and was found to have SBP >150). He devleoped burining epigastric pain. he presented to [facility]. Review of Systems - Constitutional Constitutional: absent: As Per HPI, Anorexia, Chills, Daytime Sleepiness, Excessive Sweating, Fatigue, Fever, Frequent Falls, Headache, Increased Appetite, Lethargy, Malaise, Night Sweats, Snoring, Sleep Apnea, Weight Gain, Weight Loss, Weakness, Other - EENT Eyes: absent: As Per HPI, Blind Spots, Blurred Vision, Change in Vision, Decreased Night Vision, Diplopia, Discharge, Dry Eye, Exophthalmos, Floaters, Irritation, Itchy Eyes, Loss of Peripheral Vision, Pain, Photophobia, Requires Corrective Lenses, Sees Flashes, Spots in Vision, Tunnel Vision, Other Visual Disturbances, Loss of Vision, Other Ears: absent: As Per HPI, Decreased Hearing, Ear Discharge, Ear Pain, Tinnitus, Abnormal Hearing, Disequilibrium, Dizziness, Other Nose/Mouth/Throat: absent: As Per HPI, Epistaxis, Nasal Congestion, Nasal Discharge, Nasal Obstruction, Nasal Trauma, Nose Pain, Post Nasal Drip, Sinus Pain, Sinus Pressure, Bleeding Gums, Change in Voice, Dental Pain, Dry Mouth, Dysphagia, Halitosis, Hoarsness, Lip Swelling, Mouth Lesions, Mouth Pain, Odynophagia, Sore Throat, Throat Swelling, Tongue Swelling, Facial Pain, Neck Pain, Neck Mass, Other - Cardiovascular Cardiovascular: absent: As Per HPI, Acrocyanosis, Chest Pain, Chest Pain at Rest, Chest Pain with Activity, Claudication, Diaphoresis, Dyspnea, Dyspnea on Exertion, Edema, Irregular Heart Rhythm, Pain Radiating to Arm/Neck/Jaw, Leg Edema, Leg Ulcers, Lightheadedness, Orthopnea, Palpitations, Paroxysmal N octurnal Dyspnea, Pedal Edema, Radiating Pain, Rapid Heart Rate, Slow Heart Rate, Syncope, Other - Respiratory Respiratory: absent: As Per HPI, Cough, Dyspnea, Hemoptysis, Dyspnea on Exertion, Wheezing, Snoring, Stridor, Pain on Inspiration, Chest Congestion, E xcessive Mucous Production, Change in Mucous Color, Pain with Coughing, Other - Gastrointestinal Gastrointestinal: Abdominal Pain - Genitourinary Genitourinary: absent: As Per HPI, Change in Urinary Stream, Difficulty Urin ating, Dysuria, Flank Pain, Hematuria, Pyuria, Nocturia, Urinary Incontinence, Urinary Frequency, Urinary Hesitance, Urinary Urgency, Voiding Freq/Small Amts, Freq UTI, Hx Renal/Bladder Calculi, Hx /Renal Surgery, Bladder Distension, Other - Musculoskeletal Musculoskeletal: absent: As Per HPI, Abnormal Gait, Arthralgias, Atrophy, Back Pain, Deformity, Joint Swelling, Limited Range of Motion, Loss of Height, Muscle Cramps, Muscle Weakness, Myalgias, Neck Pain, Numbness, Radiating Pain into Limb, Stiffness, Tingling, Other - Integumentary Integumentary: absent: As Per HPI, Acne, Alopecia, Bleeding Lesions, Change in Hair, Change in Nails, Change in Pigmentation, Changing Lesions, Dry Skin, Erythema, Furuncle, Hirsutism, Lesions, New Lesions, Non-Healing Lesions, Photosensitivity, Pruritus, Rash, Skin Pain, Skin Ulcer, Sores, Striae, Swelling, Unusual Bruising, Wounds, Jaundice, Other - Neurological Neurological: absent: As Per HPI, Abnormal Gait, Abnormal Hearing, Abnormal Movements, Abnormal Speech, Behavioral Changes, Burning Sensations, Confusion, Convulsions, Disequilibrium, Dizziness, Numbness, Focal Weakness, Frequent Falls, Headaches, Lack of Coordination, Loss of Vision, Memory Loss, Paresthesias, Radicular Pain, Restless Legs, Sensory Deficit, Syncope, Tingling, Tremor, Vertigo, Weakness, Other Visual Disturbances, Other - Psychiatric Psychiatric: absent: As Per HPI, Abnormal Sleep Pattern, Anhedonia, Anxiety, A uditory Hallucinations, Behavioral Changes, Change in Appetite, Change in Libido, Confusion, Depression, Difficulty Concentrating, Hallucinations, Homicidal Ideation, Hopelessness, Irritability, Memory Loss, Mood Swings, Panic Attacks, Paranoia, Suicidal Ideation, Visual Hallucinations, Tactile Roberts ucinations, Other - Endocrine Endocrine: absent: As Per HPI, Change in Body Appearance, Change in Libido, Cold Intolorance, Deepening of Voice, Excessive Sweating, Fatigue, Flushing, Heat Intolorance, Increase in Ring/Shoe/Hat Size, Palpitations, Polydipsia, Po lyphagia, Polyuria, Other - Hematologic/Lymphatic Hematologic: absent: As Per HPI, Easy Bleeding, Easy Bruising, Lymphadenopathy, Other Past Patient History - Infectious Disease Hx of Infectious Diseases: None - Past Medical History & Family History Past Medical History?: Yes - Past Social History Smoking Status: Light Smoker < 10 Cigarettes Daily - CARDIAC Hx Congestive Heart Failure: Yes Hx Hypercholesterolemia: Yes Hx Hypertension: Yes - PULMONARY Hx Asthma: Yes Hx Chronic Obstructive Pulmonary Disease (COPD): Yes - NEUROLOGICAL Hx Neurological Disorder: No - HEENT Hx HEENT Problems: Yes Other/Comment: wears glasses - RENAL Hx Chronic Kidney Disease: No - HEMATOLOGICAL/ONCOLOGICAL Hx Blood Disorders: No - INTEGUMENTARY Hx Dermatological Problems: No - MUSCULOSKELETAL/RHEUMATOLOGICAL Hx Musculoskeletal Disorders: No Hx Falls: No - GASTROINTESTINAL Hx Gastrointestinal Disorders: Yes Hx Gastroesophageal Reflux: Yes - GENITOURINARY/GYNECOLOGICAL Hx Genitourinary Disorders: No - PSYCHIATRIC Hx Anxiety: Yes Hx Depression: Yes Hx Substance Use: No - SURGICAL HISTORY Hx Coronary Stent: Yes (X2) - ANESTHESIA Hx Anesthesia: Yes Hx Anesthesia Reactions: No Hx Malignant Hyperthermia: No Meds Allergies/Adverse Reactions: Allergies Allergy/AdvReac Type Severity Reaction Status Date / Time No Known Allergies Allergy Verified 10/11/18 01:17 - Medications Medications: Current Medications Albuterol (Ventolin Hfa 90 Mcg/Actuation (8 G)) 2 puff IH RQID [facility] Last Admin: 10/11/18 16:17 Dose: Not Given Aspirin (Aspirin) 325 mg PO DAILY [facility] Last Admin: 10/11/18 10:53 Dose: 325 mg Cilostazol (Pletal) 50 mg PO DAILY [facility] Last Admin: 10/11/18 11:20 Dose: 50 mg Clopidogrel Bisulfate (Plavix) 75 mg PO DAILY [facility] Last Admin: 10/11/18 10:53 Dose: 75 mg Famotidine (Pepcid) 40 mg PO DAILY [facility] Last Admin: 10/11/18 11:03 Dose: 40 mg Fenofibrate (Tricor) 145 mg PO QPM [facility] Fluticasone/Vilanterol (Breo Ellipta 100-25 Mcg Inh) 1 puff INH RQD [facility] Gabapentin (Neurontin) 600 mg PO HS [facility] Isosorbide Mononitrate (Imdur Er) 30 mg PO DAILY [facility] Last Admin: 10/11/18 10:53 Dose: 30 mg Metoprolol Tartrate (Lopressor) 25 mg PO DAILY [facility] Last Admin: 10/11/18 10:54 Dose: 25 mg Montelukast Sodium (Singulair) 10 mg PO HS [facility] Ranolazine (Ranexa) 1,000 mg PO BID [facility] Last Admin: 10/11/18 10:53 Dose: 1,000 mg Rosuvastatin Calcium (Crestor) 5 mg PO [facility] Physical Exam - Constitutional Appears: Non-toxic - Head Exam Head Exam: NORMAL INSPECTION - Eye Exam Eye Exam: Normal appearance - ENT Exam ENT Exam: Mucous Membranes Moist - Neck Exam Neck exam: Positive for: Full Rom - Respiratory Exam Respiratory Exam: NORMAL BREATHING PATTERN - Cardiovascular Exam Cardiovascular Exam: REGULAR RHYTHM - GI/Abdominal Exam GI & Abdominal Exam: Normal Bowel Sounds - Rectal Exam Rectal Exam: Deferred - Extremities Exam Extremities exam: Negative for: pedal edema - Back Exam Back exam: NORMAL INSPECTION - Neurological Exam Neurological exam: Alert, Oriented x3 - Psychiatric Exam Psychiatric exam: Normal Affect - Skin Skin Exam: Normal Color Results - Vital Signs Recent Vital Signs: Last Vital Signs Temp 97.8 F 10/11/18 15:00 Pulse 71 10/11/18 16:34 Resp 20 10/11/18 15:00 BP 101/62 10/11/18 15:00 Pulse Ox 96 10/11/18 16:46 - Labs Result Diagrams: 10/11/18 02:28 10/11/18 02:28 Labs: Laboratory Results - last 24 hr 10/11/18 10/11/18 10/11/18 02:28 02:28 05:42 WBC 7.7 RBC 4.35 L Hgb 12.9 Hct 38.9 MCV 89.5 MCH 29.6 MCHC 33.0 RDW 13.0 Plt Count 319 MPV 8.5 Neut % (Auto) 78.9 H Lymph % (Auto) 14.0 L [place] % (Auto) 5.3 Eos % (Auto) 0.6 Baso % (Auto) 1.2 Neut # (Auto) 6.1 Lymph # (Auto) 1.1 [place] # (Auto) 0.4 Eos # (Auto) 0.0 Baso # (Auto) 0.1 Sodium 137 Potassium 4.3 Chloride 102 Carbon Dioxide 24 Anion Gap 15 BUN 15 Creatinine 1.0 Est GFR ( Amer) > 60 Est GFR (Non-Af Amer) > 60 Random Glucose 122 H Calcium 9.2 Total Bilirubin 0.4 AST 30 ALT 22 Alkaline Phosphatase 40 Total Creatine Kinase 83 56 CK-MB (Mass) < 0.22 < 0.22 Troponin I < 0.0120 < 0.0120 NT-Pro-B Natriuret Pep 33.8 Total Protein 7.4 Albumin 4.7 Globulin 2.7 Albumin/Globulin Ratio 1.8 Triglycerides 190 H Cholesterol 224 H LDL Cholesterol Direct 150 H HDL Cholesterol 43 10/11/18 11:10 WBC RBC Hgb Hct MCV MCH MCHC RDW Plt Count MPV Neut % (Auto) Lymph % (Auto) [place] % (Auto) Eos % (Auto) Baso % (Auto) Neut # (Auto) Lymph # (Auto) [place] # (Auto) Eos # (Auto) Baso # (Auto) Sodium Potassium Chloride Carbon Dioxide Anion Gap BUN Creatinine Est GFR ( Amer) Est GFR (Non-Af Amer) Random Glucose Calcium Total Bilirubin AST ALT Alkaline Phosphatase Total Creatine Kinase 65 CK-MB (Mass) < 0.22 Troponin I < 0.0120 NT-Pro-B Natriuret Pep Total Protein Albumin Globulin Albumin/Globulin Ratio Triglycerides Cholesterol LDL Cholesterol Direct HDL Cholesterol - EKG Data EKG Interpreted by: Myself EKG shows normal: Sinus rhythm Assessment & Plan (1) CAD (coronary artery disease) Assessment and Plan: patient is s/p recent stent of the RCA, and previous stent OM. recommend continued antipaltelet therapy. he is stable for discharge Status: Acute (2) Diabetes mellitus Assessment and Plan: glucose control Status: Acute (3) HTN (hypertension) Assessment and Plan: blood pressure is imrpoved Status: Acute (4) Hypercholesteremia Assessment and Plan: patient was approved for Repatha. Reviewed LDL cholesterol with the patient Status: Acute
[2018-10-12] MEDS ORDERED: Fluticasone-Vilanterol 100/25mcg Diskus INH SCH (08:00)
--- NOTE | 2018-10-12 11:31 | CARD ---
APPROVED REPORT Date of service: 10/11/2018 EKG Measurement Heart [id number] <Conclusion> Normal sinus rhythm Left axis deviation Low voltage QRS Abnormal ECG
--- NOTE | 2018-10-12 11:34 | CARD ---
APPROVED REPORT Date of service: 10/11/2018 EKG Measurement Heart [id number] [place] [id number] <Conclusion> Normal sinus rhythm Left axis deviation Abnormal ECG
== END 2018-10-11 19:08 | disposition home or self-care (01) ==
LOC: C.ER 01:01 → C.9E 03:26 → C.5S 06:07
PROVIDERS: ADMIT Internal Medicine; ATTEND Internal Medicine
DX: R07.89 Other chest pain (principal); I25.10 Atherosclerotic heart disease of native coronary artery without angina pectoris; Z95.5 Presence of coronary angioplasty implant and graft; E11.9 Type 2 diabetes mellitus without complications; I11.0 Hypertensive heart disease with heart failure; I50.9 Heart failure, unspecified; E78.00 Pure hypercholesterolemia, unspecified; J44.9 Chronic obstructive pulmonary disease, unspecified; F17.210 Nicotine dependence, cigarettes, uncomplicated; F41.9 Anxiety disorder, unspecified; F32.9 Major depressive disorder, single episode, unspecified; Z79.82 Long term (current) use of aspirin; Z79.899 Other long term (current) drug therapy
CPT/HCPCS: 36415; 71045; 80053; 80061; 82550; 82553; 83880; 84484; 85025; G0378